=== PATIENT | female | born 1990 | race Caucasian/White ===

== ENCOUNTER 2021-07-02 20:20 | Inpatient (IN) ==
--- NOTE | 2021-07-02 21:04 | Emergency Department Note ---
Impression & Plan Pneumonia, UTI (urinary tract infection), Leukocytosis, Acute dehydration, Hyponatremia ED Provider Note NAME: YAMIL LEE AGE: 30 SEX: F : 1990 ARRIVES VIA: Law Enforcement Transport INFORMANT: Patient, ED PROVIDER(S): Roderick Pate MD Chief Complaint: Flank pain HPI: Patient does present with long enforcement as they are outstanding warrants from [place] for her arrest. The patient does complain of pain to the bilateral flank and associated body aches. The patient is vaccinated for COVID-19. She does admit to alcohol tobacco as well as IV drug use. The patient does use heroin most recently as yesterday. The patient also does admit to methamphetamine use. Patient injects in her bilateral upper arms. The patient denies any vomiting. LMP she believes was earlier this month. Patient denies any leg swelling or rashes. Patient denies any headache or neck pain. Patient was recently seen and was noted to have a likely UTI with a white count of 22,000. The patient was subsequently discharged. ROS: See HPI for pertinent positives and negatives. A total of 10 systems were reviewed and otherwise negative. Past medical history: See below Surgical history: See below Social history: See below Physical Exam: GENERAL: Mildly ill in appearance, wearing a mask EYE EXAM: Normal conjunctiva. PERRL, no anisocoria and EOM's grossly intact w/o pain. NECK: Supple, no nuchal rigidity, no adenopathy, non-tender. No signs of meningismus. LUNGS: Clear to auscultation. Normal chest wall mechanics. HEART: Tachycardic and, no MRG. ABDOMEN: Abdomen soft, non-tender, normo-active bowel sounds, no masses, no rebound or guarding. BACK: Bilateral CVA TTP. SKIN: No rashes and no bruising. UPPER EXTREMITIES: 2 recent injection sites 1 on each forearm but without any surrounding erythema fluctuance or drainage LOWER EXTREMITIES: Grossly normal, no edema. No TTP NEURO EXAM: A&O x3, cranial nerves II-XII grossly intact, normal speech, moves all 4 extremities on command w/o issue. Differential diagnoses: Sepsis, UTI, pneumonia, metabolic, electrolyte abnormalities, cardiac sources, intracerebral event, toxicologic, neurologic, as well as other pathologies. Course: Patient was seen and evaluated the bedside. Full history physical exam was performed. EKG interpreted by me Sinus tachycardia, rate 112, normal intervals right axis deviation. T wave inversion in V2. [place] may be changed from comparison EKG June 30, 2021 Imaging Studies: CT abdomen pelvis with contrast: No hydronephrosis or nephrolithiasis. Multifocal opacities of the lung bases, compatible with pneumonia. Small right and left trace pleural effusions. Circumferential wall thickening of the descending and sigmoid colon may be due to underdistention versus colitis. Excess colonic stool burden in the rectum and right colon which can be seen in the setting of constipation. Fluid-filled nondilated loops of small bowel throughout the abdomen are nonspecific but can be seen in the setting of enteritis. Transitional lumbosacral anatomy. Hepatomegaly. Splenomegaly. Cortical scarring/atrophy of the left kidney, similar from prior exam. Cardiac monitoring: An order was placed for continuous cardiac monitoring. The monitor shows a rate of 110 with cardiac and regular rhythm. MDM: Patient presented to concern for bilateral flank pain. Blood work was obtained along with blood cultures. I did review the patient's urine culture which showed staph aureus. I did speak with pharmacy and the patient was ordered daptomycin and Zosyn. Patient's white count is 30 with a normal hemoglobin. Platelet count is unremarkable. The patient's kidney function does show prerenal azotemia and hyponatremia at 128. Mild hypocalcemia at 8.4 with a normal lactate. Urinalysis does show blood whites trichomonas and yeast. COVID-negative. Chest x-ray by my read may show bibasilar haziness. Patient CT abdomen pelvis does not show any evidence of hydronephrosis or kidney stones. The patient does have multifocal opacities at the lung bases compatible with likely pneumonia. Patient does have small right and trace left pleural effusions. Circumferential wall thickening was noted. Patient may have enteritis. Patient does have liver and spleen enlargement. Given the patient's significant lab abnormalities and concern for IV drug use and associated pneumonia. I did speak with the on-call hospitalist and the patient was admitted by Dr. Hoyos. Past Med/Surg History Medical History History of drug use No chronic diseases present Surgical History No significant past surgical history Family History Other No significant family history Social History Smoking Status: Current every day smoker Tobacco Type: Cigarettes Hx Alcohol Use: Yes Hx Substance Use: Yes Preferred Language: Gabonese Feels Safe at Home: Yes Allergies Allergies Allergy/AdvReac Type Severity Reaction Status Date / Time No Known Allergies Allergy Verified 07/02/21 20:45 Home Meds Previous Rx's Medication Instructions Recorded cefdinir 300 mg capsule 300 mg PO BID 10 Days #20 cap 06/30/21 Results & Data (ED) Vital Signs Vital Signs - 24 hr 07/02/21 20:23 07/02/21 21:00 07/02/21 21:58 Temperature 36.8 C Temperature Source Temporal Artery Scan Pulse Rate 85 Pulse Rate [Apical] 112 H 98 H Pulse Rate [Right Finger] Pulse Rhythm [Right Finger] Pulse Strength [Right Finger] Respiratory Rate 18 16 18 Respiratory Effort / Characteristics Non-Labored Spontaneous Respiratory Depth Normal Blood Pressure 117/77 Blood Pressure [Left Arm] 145/79 H 145/79 H Blood Pressure Mean 90 Blood Pressure Mean [Left Arm] 101 101 Pulse Oximetry 95 98 98 Oxygen Delivery Method Room Air Sepsis Recent Fever Within 48 Hours No Sepsis New/Unexplained Change in Mental Status No Sepsis Action Taken by Nursing No Action Required 07/02/21 23:45 Temperature 37.3 C Temperature Source Oral Pulse Rate Pulse Rate [Apical] Pulse Rate [Right Finger] 114 H Pulse Rhythm [Right Finger] Regular Pulse Strength [Right Finger] Normal Respiratory Rate 20 Respiratory Effort / Characteristics Non-Labored Spontaneous Respiratory Depth Normal Blood Pressure Blood Pressure [Left Arm] 131/75 Blood Pressure Mean Blood Pressure Mean [Left Arm] 93 Pulse Oximetry 96 Oxygen Delivery Method Room Air Sepsis Recent Fever Within 48 Hours Sepsis New/Unexplained Change in Mental Status Sepsis Action Taken by [facility] Medications Current Medication List: was personally reviewed by me Laboratory Data Attestation: I reviewed the patient's lab results. Result diagrams: 07/02/21 21:36 07/02/21 21:36 Lab Results 07/02/21 07/02/21 07/02/21 Range/Units 21:00 21:00 21:36 WBC 30.55 H* (4.8-10.8) K/uL RBC 4.05 L (4.2-5.4) M/uL Hgb 12.3 (12.0-16.0) g/dL Hct 35.3 L (37-47) % MCV 87.2 (80-100) fL MCH 30.4 (25-34) pg MCHC 34.8 (32-36) g/dL RDW Std Deviation 42.9 (36.4-46.3) fL RDW Coeff of [place] 13.3 (11.5-14.5) % Plt Count 209 (130-400) K/uL MPV 9.8 (7.4-10.4) fL Immature Gran % (Auto) 1.6 % Neut % (Auto) 85.8 % Lymph % (Auto) 5.8 % [place] % (Auto) 6.4 % Eos % (Auto) 0.1 % Baso % (Auto) 0.3 % Neut # (Auto) 26.26 H (1.4-6.5) K/uL Lymph # (Auto) 1.76 (1.2-3.4) K/uL [place] # (Auto) 1.94 H (0.11-0.59) K/uL Eos # (Auto) 0.03 (0-0.5) K/uL Baso # (Auto) 0.08 (0-0.2) K/uL Immature Gran # (Auto) 0.48 H (0.00-0.02) K/uL PT (9.0-12.0) Seconds INR (0.9-1.1) APTT (21.0-31.0) Seconds PTT Ratio Sodium (136-145) mmol/L Potassium (3.5-5.1) mmol/L Chloride (98-107) mmol/L Carbon Dioxide (21-32) mmol/L Anion Gap (3-11) BUN (6-23) mg/dl Creatinine (0.6-1.2) mg/dl Est Cr Clr Drug Dosing ml/min Est GFR ( Amer) ml/min Est GFR (Non-Af Amer) ml/min BUN/Creatinine Ratio (10-20) Glucose (70-99(Fasting)) mg/dl Lactate (0.4-2.0) mmol/L Calcium (8.5-10.1) mg/dl Magnesium (1.7-2.4) mg/dl Total Bilirubin (0.2-1.0) mg/dl AST (13-39) U/L ALT (7-52) U/L Alkaline Phosphatase (34-104) U/L Total Protein (6.0-8.3) gm/dl Albumin (3.4-5.0) gm/dl Globulin (2.5-4.0) gm/dl Albumin/Globulin Ratio (0.9-2) Urine Color Yellow Urine Appearance Cloudy A (Clear) Urine pH 5.0 (4.5-7.5) Ur Specific [place] 1.014 (1.000-1.030) Urine Protein 2+ H (Negative) Urine Glucose (UA) Negative (Negative) Urine Ketones Negative (Negative) Urine Blood 3+ H (Negative) Urine Nitrite Negative (Negative) Urine Bilirubin Negative (Negative) Urine Urobilinogen Negative (Negative) Ur Leukocyte Esterase Negative (Negative) Urine WBC (Auto) 10-30 H (0-5) /hpf Urine RBC (Auto) 0-4 (0-4) /hpf U Hyaline Cast (Auto) 1-5 (0-5) /lpf U Epithel Cells (Auto) >30 H (0-5) /lpf Urine Bacteria (Auto) Negative (Negative) Urine Trichomonas Present H (None Prsent) Urine Yeast Budding A (None Prsent) Urine Test Negative (Negative) SARS-CoV-2, RNA, NAAT (NEGATIVE) 07/02/21 07/02/21 07/02/21 Range/Units 21:36 21:36 21:36 WBC (4.8-10.8) K/uL RBC (4.2-5.4) M/uL Hgb (12.0-16.0) g/dL Hct (37-47) % MCV (80-100) fL MCH (25-34) pg MCHC (32-36) g/dL RDW Std Deviation (36.4-46.3) fL RDW Coeff of [place] (11.5-14.5) % Plt Count (130-400) K/uL MPV (7.4-10.4) fL Immature Gran % (Auto) % Neut % (Auto) % Lymph % (Auto) % [place] % (Auto) % Eos % (Auto) % Baso % (Auto) % Neut # (Auto) (1.4-6.5) K/uL Lymph # (Auto) (1.2-3.4) K/uL [place] # (Auto) (0.11-0.59) K/uL Eos # (Auto) (0-0.5) K/uL Baso # (Auto) (0-0.2) K/uL Immature Gran # (Auto) (0.00-0.02) K/uL PT 11.6 (9.0-12.0) Seconds INR 1.2 H (0.9-1.1) APTT 26.2 (21.0-31.0) Seconds PTT Ratio 1.0 Sodium 128 L (136-145) mmol/L Potassium 3.8 (3.5-5.1) mmol/L Chloride 93 L (98-107) mmol/L Carbon Dioxide 26 (21-32) mmol/L Anion Gap 9 (3-11) BUN 23 (6-23) mg/dl Creatinine 0.73 (0.6-1.2) mg/dl Est Cr Clr Drug Dosing 100.5 ml/min Est GFR ( Amer) 127.2 ml/min Est GFR (Non-Af Amer) 109.7 ml/min BUN/Creatinine Ratio 31.5 H (10-20) Glucose 112 H (70-99(Fasting)) mg/dl Lactate 1.9 (0.4-2.0) mmol/L Calcium 8.4 L (8.5-10.1) mg/dl Magnesium 2.6 H (1.7-2.4) mg/dl Total Bilirubin 0.7 (0.2-1.0) mg/dl AST 26 (13-39) U/L ALT 25 (7-52) U/L Alkaline Phosphatase 156 H (34-104) U/L Total Protein 7.6 (6.0-8.3) gm/dl Albumin 3.0 L (3.4-5.0) gm/dl Globulin 4.6 H (2.5-4.0) gm/dl Albumin/Globulin Ratio 0.7 L (0.9-2) Urine Color Urine Appearance (Clear) Urine pH (4.5-7.5) Ur Specific [place] (1.000-1.030) Urine Protein (Negative) Urine Glucose (UA) (Negative) Urine Ketones (Negative) Urine Blood (Negative) Urine Nitrite (Negative) Urine Bilirubin (Negative) Urine Urobilinogen (Negative) Ur Leukocyte Esterase (Negative) Urine WBC (Auto) (0-5) /hpf Urine RBC (Auto) (0-4) /hpf U Hyaline Cast (Auto) (0-5) /lpf U Epithel Cells (Auto) (0-5) /lpf Urine Bacteria (Auto) (Negative) Urine Trichomonas (None Prsent) Urine Yeast (None Prsent) Urine Test (Negative) SARS-CoV-2, RNA, NAAT (NEGATIVE) 07/02/21 Range/Units 22:00 WBC (4.8-10.8) K/uL RBC (4.2-5.4) M/uL Hgb (12.0-16.0) g/dL Hct (37-47) % MCV (80-100) fL MCH (25-34) pg MCHC (32-36) g/dL RDW Std Deviation (36.4-46.3) fL RDW Coeff of [place] (11.5-14.5) % Plt Count (130-400) K/uL MPV (7.4-10.4) fL Immature Gran % (Auto) % Neut % (Auto) % Lymph % (Auto) % [place] % (Auto) % Eos % (Auto) % Baso % (Auto) % Neut # (Auto) (1.4-6.5) K/uL Lymph # (Auto) (1.2-3.4) K/uL [place] # (Auto) (0.11-0.59) K/uL Eos # (Auto) (0-0.5) K/uL Baso # (Auto) (0-0.2) K/uL Immature Gran # (Auto) (0.00-0.02) K/uL PT (9.0-12.0) Seconds INR (0.9-1.1) APTT (21.0-31.0) Seconds PTT Ratio Sodium (136-145) mmol/L Potassium (3.5-5.1) mmol/L Chloride (98-107) mmol/L Carbon Dioxide (21-32) mmol/L Anion Gap (3-11) BUN (6-23) mg/dl Creatinine (0.6-1.2) mg/dl Est Cr Clr Drug Dosing ml/min Est GFR ( Amer) ml/min Est GFR (Non-Af Amer) ml/min BUN/Creatinine Ratio (10-20) Glucose (70-99(Fasting)) mg/dl Lactate (0.4-2.0) mmol/L Calcium (8.5-10.1) mg/dl Magnesium (1.7-2.4) mg/dl Total Bilirubin (0.2-1.0) mg/dl AST (13-39) U/L ALT (7-52) U/L Alkaline Phosphatase (34-104) U/L Total Protein (6.0-8.3) gm/dl Albumin (3.4-5.0) gm/dl Globulin (2.5-4.0) gm/dl Albumin/Globulin Ratio (0.9-2) Urine Color Urine Appearance (Clear) Urine pH (4.5-7.5) Ur Specific [place] (1.000-1.030) Urine Protein (Negative) Urine Glucose (UA) (Negative) Urine Ketones (Negative) Urine Blood (Negative) Urine Nitrite (Negative) Urine Bilirubin (Negative) Urine Urobilinogen (Negative) Ur Leukocyte Esterase (Negative) Urine WBC (Auto) (0-5) /hpf Urine RBC (Auto) (0-4) /hpf U Hyaline Cast (Auto) (0-5) /lpf U Epithel Cells (Auto) (0-5) /lpf Urine Bacteria (Auto) (Negative) Urine Trichomonas (None Prsent) Urine Yeast (None Prsent) Urine Test (Negative) SARS-CoV-2, RNA, NAAT NEGATIVE (NEGATIVE) Administered Medications Discontinued Medications Sodium Chloride (Nss 1000ml) 1,000 mls @ 999 mls/hr IV .Q1H1M [facility] Stop: 07/02/21 22:16 Last Admin: 07/02/21 22:47 Dose: 999 mls/hr Documented by: [id number] Sodium Chloride (Nss 1000ml) 1,000 mls @ 999 mls/hr IV .Q1H1M [facility] Stop: 07/02/21 23:15 Last Admin: 07/02/21 22:48 Dose: 999 mls/hr Documented by: [id number] Daptomycin 350 mg/ Syringe 7 mls @ 3.5 mls/min IV NOW ONE; Protocol Stop: 07/02/21 21:33 Last Admin: 07/02/21 22:47 Dose: 3.5 mls/min Documented by: [id number] Piperacillin Sod/Tazobactam Sod (Zosyn) 4.5 gm in 120 mls @ 240 mls/hr IV NOW ONE Stop: 07/02/21 22:01 Last Admin: 07/02/21 22:47 Dose: 240 mls/hr Documented by: [id number] Ioversol (Optiray 320 100ml) 93 ml IV ONCE ONE Stop: 07/02/21 22:33 Last Admin: 07/02/21 22:34 Dose: 93 ml Documented by: [id number] Discharge Plan Visit Data Chief Complaint: Urinary Symptoms Stated Complaint: POSSIBLE UTI, ACHES, FEET ACHE, RIB ACHE Discharge Problem: Pneumonia, UTI (urinary tract infection), Leukocytosis, Acute dehydration, Hyponatremia Patient Disposition: Admitted As Inpatient Forms Stand Alone Forms: [facility] Prescriptions Prescriptions: No Action cefdinir 300 mg capsule 300 mg PO BID 10 Days Qty: 20 RF: 0 Referrals Referrals: PCP,NO [Primary Care Provider] -
[2021-07-02] MEDS ORDERED: PIPERACILLIN/TAZOBACTAM 4.5 GM/120 ML BAG IV ONE (21:32)
[2021-07-02] MEDS ORDERED: DAPTOmycin 350 MG in SYRINGE 0 ML IV ONE (21:32)
[2021-07-02] MEDS ORDERED: PIPERACILL/TAZOBAC CONSULT ACTIVE PRN (21:32)
[2021-07-02 21:41] LABS: Pregnancy Test, Urine Negative (Negative)
[2021-07-02 21:47] LABS: Hematocrit (blood only) 35.3 % (37-47); Hemoglobin 12.3 g/dL (12.0-16.0); Mean Corpuscular Hemoglobin 30.4 pg (25-34); Mean Corpuscular Hgb Conc 34.8 g/dL (32-36); Mean Corpuscular Volume 87.2 fL (80-100); Mean Platelet Volume 9.8 fL (7.4-10.4); Platelet Count 209 K/uL (130-400); RDW Coefficient of Variation 13.3 % (11.5-14.5); RDW Standard Deviation 42.9 fL (36.4-46.3); Red Blood Count 4.05 M/uL (4.2-5.4); White Blood Count 30.55 K/uL (4.8-10.8)
[2021-07-02 21:58] LABS: INR 1.2 (0.9-1.1); Partial Thromboplastin Time 26.2 Seconds (21.0-31.0); Prothrombin Time 11.6 Seconds (9.0-12.0)
[2021-07-02 22:03] LABS: Albumin Globulin Ratio 0.7 (0.9-2); BUN Creatinine Ratio 31.5 (10-20); Bilirubin,Total 0.7 mg/dl (0.2-1.0); Calcium 8.4 mg/dl (8.5-10.1); Creatinine Clr Calc Pharmacy 100.5 ml/min; Est GFR (African American) 127.2 ml/min; Est GFR (Non-African American) 109.7 ml/min; Globulin 4.6 gm/dl (2.5-4.0); Magnesium 2.6 mg/dl (1.7-2.4); Potassium 3.8 mmol/L (3.5-5.1); Total Protein 7.6 gm/dl (6.0-8.3)
[2021-07-02] MEDS ORDERED: SODIUM CHLORIDE 0.9% 1000ML 1,000 ML IV SCH (22:15)
[2021-07-02 22:16] LABS: Appearance Urine Cloudy (Clear); Bacteria Urine Automated Negative (Negative); Bilirubin Urine Negative (Negative); Blood Urine 3+ (Negative); Color Urine Yellow; Epithelial Cell Urine Auto >30 /lpf (0-5); Glucose Urine UA Negative (Negative); Ketones Urine Negative (Negative); Leukocyte Esterase Urine Negative (Negative); Nitrite Urine Negative (Negative); Protein Urine 2+ (Negative); RBC Urine Automated 0-4 /hpf (0-4); Specific Gravity Urine 1.014 (1.000-1.030); Urobilinogen Urine Negative (Negative)
[2021-07-02 22:21] LABS: Basophils # (auto) 0.08 K/uL (0-0.2); Basophils % (auto) 0.3 %; Eosinophils # (auto) 0.03 K/uL (0-0.5); Eosinophils % (auto) 0.1 %; Immature Granulocytes # (auto) 0.48 K/uL (0.00-0.02); Immature Granulocytes % (auto) 1.6 %; Lymphocytes # (auto) 1.76 K/uL (1.2-3.4); Lymphocytes % (auto) 5.8 %; Monocytes # (auto) 1.94 K/uL (0.11-0.59); Monocytes % (auto) 6.4 %; Neutrophils # (auto) 26.26 K/uL (1.4-6.5); Neutrophils % (auto) 85.8 %
[2021-07-02 22:29] LABS: Trichomonas Urine Present (None Prsent)
[2021-07-02] MEDS ORDERED: OPTIRAY 320 100ml IV ONE (22:32)
[2021-07-02] MEDS: SODIUM CHLORIDE 0.9% 1000ML 1,000 ML IV SCH (22:47)
[2021-07-03] MEDS ORDERED: THIAMINE HCL 100 MG in SYRINGE 9 ML IV STA (00:17)
[2021-07-03] MEDS ORDERED: VANCOMYCIN CONSULT ACTIVE PRN (00:18)
--- NOTE | 2021-07-03 00:19 | History & Physical Report ---
Date of Service July 03, 2021 Assessment & Plan (1) Sepsis: Plan: Secondary to pneumonia Rule out infective endocarditis given history of IV drug abuse Shortness of breath with chest pain secondary to pneumonia rule out PE given pleuritic chest pain complaints Syncopal event last week possibly from orthostasis given low BP from last ER visit Rule out obstructive cardiac pathology chronic hyponatremia secondary to EtOH intake Hepatosplenomegaly on CT abdomen pelvis initial read, possible alcoholic cirrhosis ongoing tobacco/alcohol abuse Hyperglycemia rule out DM Medical telemetry CS, Vancomycin and Zosyn given IVDU/alcohol history CT chest PE study TTE RE syncope Hyponatremia work-up Further management pending work-up results RICA S, DT precautions Check hemoglobin A1c Nicotine patch as needed DVT prophylaxis. Lovenox subcu Full code Local police have to be notified if patient to be discharge as patient needs to return to half-way. Text document was generated using [employer] voice recognition software. It may contain grammatical or spelling errors. Kindly contact undersigned for clarification of any documentation item in question. History of Present Illness Chief Complaint: Weak and achy Primary Care Provider: Dr. Duenas History obtained from patient and records. Medical history significant for chronic hyponatremia, IV drug abuse, ongoing tobacco/alcohol use. Patient has been sick the last week. Body aches, pleuritic chest pain with cough productive of junky sputum and shortness of breath. Achy abdominal pain with constipation symptoms. Dysuria complaints. No headache. Poor appetite. No known recent COVID-19 contacts. Patient completed COVID-19 vaccination. Syncopal event about 5 days ago without witnessed seizures. Patient seen at the ER 3 days ago. Cefdinir prescribed for UTI. Urine CS later grew MRSA. Hospital pharmacist tried to contact patient and family to assess clinical status and to recommend switching antibiotic to Bactrim as per documentation. Worsening symptoms despite cefdinir Rx intake. Patient apprehended by police for trespassing at a private property last night. Patient brought to ER for evaluation because she looked sick. Daptomycin and Zosyn given at the ER for sepsis. Medical History as above Surgical History : Tonsillectomy, appendectomy Family History : Heart disease, DM Personal/Social history : 1 pack daily, alcohol abuse, currently unemployed Allergies Allergy/AdvReac Type Severity Reaction Status Date / Time No Known Allergies Allergy Verified 07/02/21 20:45 Home Medications Medication Instructions Recorded Confirmed Type cefdinir 300 mg capsule 300 mg PO BID 10 Days #20 cap 06/30/21 07/02/21 Rx Past Med/Surg History Medical History History of drug use No chronic diseases present Surgical History No significant past surgical history Family History Other No significant family history Social History Smoking Status: Current every day smoker Tobacco Type: Cigarettes Hx Alcohol Use: Yes Hx Substance Use: Yes Preferred Language: Chinese Feels Safe at Home: Yes Review of Systems Review of Systems: As per HPI, all 10 systems reviewed, all other ROS negative Physical Exam Physical Exam: GENERAL: Ill-appearing, slightly anxious, no respiratory distress SKIN: Normal color, warm HEENT: [place] palpebral conjunctivae, no ptosis, dry buccal mucosa NECK : Supple, no tenderness CHEST : CTA, no tenderness HEART : Tachycardic, no obvious murmurs ABDOMEN: Some distention, central abdominal tenderness EXTREMITIES : No LE swelling/tenderness, no other conspicuous deformities noted NEUROLOGIC : Coherent, no facial asymmetry, no other gross focality Results & Data Results & Data ([facility]) Vital Signs (Past 12 Hours) Vital Signs Temp Pulse Pulse Pulse Resp BP BP 07/02/21 23:45 37.3 C 114 H 20 131/75 07/02/21 21:58 98 H 18 145/79 H 07/02/21 21:00 112 H 16 145/79 H 07/02/21 20:23 36.8 C 85 18 117/77 Pulse Ox 07/02/21 23:45 96 07/02/21 21:58 98 07/02/21 21:00 98 07/02/21 20:23 95 Laboratory Results Laboratory Results WBC 30.55 K/uL (4.8-10.8) H* 07/02/21 21:36 RBC 4.05 M/uL (4.2-5.4) L 07/02/21 21:36 Hgb 12.3 g/dL (12.0-16.0) 07/02/21 21:36 Hct 35.3 % (37-47) L 07/02/21 21:36 MCV 87.2 fL (80-100) 07/02/21 21:36 MCH 30.4 pg (25-34) 07/02/21 21:36 MCHC 34.8 g/dL (32-36) 07/02/21 21:36 RDW Std Deviation 42.9 fL (36.4-46.3) 07/02/21 21:36 RDW Coeff of [place] 13.3 % (11.5-14.5) 07/02/21 21:36 Plt Count 209 K/uL (130-400) 07/02/21 21:36 MPV 9.8 fL (7.4-10.4) 07/02/21 21:36 Immature Gran % (Auto) 1.6 % 07/02/21 21:36 Neut % (Auto) 85.8 % 07/02/21 21:36 Lymph % (Auto) 5.8 % 07/02/21 21:36 [place] % (Auto) 6.4 % 07/02/21 21:36 Eos % (Auto) 0.1 % 07/02/21 21:36 Baso % (Auto) 0.3 % 07/02/21 21:36 Neut # (Auto) 26.26 K/uL (1.4-6.5) H 07/02/21 21:36 Lymph # (Auto) 1.76 K/uL (1.2-3.4) 07/02/21 21:36 [place] # (Auto) 1.94 K/uL (0.11-0.59) H 07/02/21 21:36 Eos # (Auto) 0.03 K/uL (0-0.5) 07/02/21 21:36 Baso # (Auto) 0.08 K/uL (0-0.2) 07/02/21 21:36 Immature Gran # (Auto) 0.48 K/uL (0.00-0.02) H 07/02/21 21:36 PT 11.6 Seconds (9.0-12.0) 07/02/21 21:36 INR 1.2 (0.9-1.1) H 07/02/21 21:36 APTT 26.2 Seconds (21.0-31.0) 07/02/21 21:36 PTT Ratio 1.0 07/02/21 21:36 Sodium 128 mmol/L (136-145) L 07/02/21 21:36 Potassium 3.8 mmol/L (3.5-5.1) 07/02/21 21:36 Chloride 93 mmol/L (98-107) L 07/02/21 21:36 Carbon Dioxide 26 mmol/L (21-32) 07/02/21 21:36 Anion Gap 9 (3-11) 07/02/21 21:36 BUN 23 mg/dl (6-23) 07/02/21 21:36 Creatinine 0.73 mg/dl (0.6-1.2) 07/02/21 21:36 Est Cr Clr Drug Dosing 100.5 ml/min 07/02/21 21:36 Est GFR ( Amer) 127.2 ml/min 07/02/21 21:36 Est GFR (Non-Af Amer) 109.7 ml/min 07/02/21 21:36 BUN/Creatinine Ratio 31.5 (10-20) H 07/02/21 21:36 Glucose 112 mg/dl (70-99(Fasting)) H 07/02/21 21:36 Osmolality 302 mOsm/kg (280-300) H 07/02/21 21:36 Lactate 1.9 mmol/L (0.4-2.0) 07/02/21 21:36 Calcium 8.4 mg/dl (8.5-10.1) L 07/02/21 21:36 Magnesium 2.6 mg/dl (1.7-2.4) H 07/02/21 21:36 Total Bilirubin 0.7 mg/dl (0.2-1.0) 07/02/21 21:36 AST 26 U/L (13-39) 07/02/21 21:36 ALT 25 U/L (7-52) 07/02/21 21:36 Alkaline Phosphatase 156 U/L (34-104) H 07/02/21 21:36 Total Protein 7.6 gm/dl (6.0-8.3) 07/02/21 21:36 Albumin 3.0 gm/dl (3.4-5.0) L 07/02/21 21:36 Globulin 4.6 gm/dl (2.5-4.0) H 07/02/21 21:36 Albumin/Globulin Ratio 0.7 (0.9-2) L 07/02/21 21:36 Urine Color Yellow 07/02/21 21:00 Urine Appearance Cloudy (Clear) A 07/02/21 21:00 Urine pH 5.0 (4.5-7.5) 07/02/21 21:00 Ur Specific [place] 1.014 (1.000-1.030) 07/02/21 21:00 Urine Protein 2+ (Negative) H 07/02/21 21:00 Urine Glucose (UA) Negative (Negative) 07/02/21 21:00 Urine Ketones Negative (Negative) 07/02/21 21:00 Urine Blood 3+ (Negative) H 07/02/21 21:00 Urine Nitrite Negative (Negative) 07/02/21 21:00 Urine Bilirubin Negative (Negative) 07/02/21 21:00 Urine Urobilinogen Negative (Negative) 07/02/21 21:00 Ur Leukocyte Esterase Negative (Negative) 07/02/21 21:00 Urine WBC (Auto) 10-30 /hpf (0-5) H 07/02/21 21:00 Urine RBC (Auto) 0-4 /hpf (0-4) 07/02/21 21:00 U Hyaline Cast (Auto) 1-5 /lpf (0-5) 07/02/21 21:00 U Epithel Cells (Auto) >30 /lpf (0-5) H 07/02/21 21:00 Urine Bacteria (Auto) Negative (Negative) 07/02/21 21:00 Urine Trichomonas Present (None Prsent) H 07/02/21 21:00 Urine Yeast Budding (None Prsent) A 07/02/21 21:00 Urine Test Negative (Negative) 07/02/21 21:00 SARS-CoV-2, RNA, NAAT NEGATIVE (NEGATIVE) 07/02/21 22:[address] abdomen pelvis initial read: Chest x-ray as per my interpretation bilateral infiltrates EKG as per my interpretation : Rate 110, sinus tachycardia, RAD, no ischemia
[2021-07-03] MEDS ORDERED: MULTI-VITAMIN INFUSION 10 ML, THIAMINE HCL 100 MG, FOLIC ACID 1 MG in SODIUM CHLORIDE 0... IV ONE (00:27)
[2021-07-03] MEDS: SODIUM CHLORIDE 0.9% 1000ML 1,000 ML IV SCH (01:14)
[2021-07-03 02:02] LABS: Influenza A virus by PCR Negative (Negative); Influenza B virus by PCR Negative (Negative)
[2021-07-03] MEDS ORDERED: POLYETHYLENE (MIRALAX) 17 GM PACK PO PRN (02:15)
[2021-07-03] MEDS ORDERED: POLYETHYLENE (MIRALAX) 17 GM PACK PO STA (02:15)
[2021-07-03] MEDS ORDERED: VANCOMYCIN HCL 1,500 MG in SODIUM CHLORIDE 0.9% 500 ML IV STA (02:27)
--- NOTE | 2021-07-03 02:52 | Pharmacy Report ---
Pharmacy Vanc AUC Short Note - Date of Service July 03, 2021 - Assessment & Plan Assessment 30 year old F receiving Vancomycin for treatment of pneumonia and UTI. * PMHx significant for alcohol, tobacco and intravenous drug abuse. * Seen in ED on 06/30/21 and diagnosed with UTI and discharged on Cefdinir. Culture grew MRSA. * Afebrile. Leukocytosis of 31k. Renal fxn stable. * Blood and urine cultures pending. Plan Vancomycin * AUC/CARLOS is the preferred PK/PD target for vancomycin * AUC guided dosing is effective and associated with decreased risk of nephrotoxicity compared to traditional trough targets * Loading dose of 1500 mg IV x 1 * Maintenance dose of 750 mg IV every 8 hours is expected to achieve goal AUC/CARLOS of 400-600 mg/L.hr and is associated with a 15% risk of nephrotoxicity. * Trough level ordered for 07/04/21. Pharmacy will continue to follow and will adjust dose/frequency as necessary. Thank you.
[2021-07-03] MEDS ORDERED: LORazepam 1 MG/2 ML VIAL IV PRN (03:04)
[2021-07-03] MEDS ORDERED: LORazepam 2 MG/4 ML VIAL IV PRN (03:04)
[2021-07-03] MEDS ORDERED: IBUPROFEN 200 MG TAB PO PRN (03:04)
[2021-07-03] MEDS ORDERED: ACETAMINOPHEN 325 MG TAB PO PRN (03:04)
[2021-07-03] MEDS ORDERED: LORazepam 3 MG/6 ML VIAL IV PRN (03:04)
[2021-07-03] MEDS ORDERED: ATIVAN IV ALCOHOL WITHDRAWL IV PRN (03:04)
[2021-07-03] MEDS ORDERED: KETOROLAC TROMETHAMINE 15 MG/ML VIAL IV PRN (03:04)
[2021-07-03] MEDS ORDERED: PROMETHAZINE HCL 12.5 MG in SODIUM CHLORIDE 0.9% 50 ML IV PRN (03:04)
[2021-07-03] MEDS ORDERED: NICOTINE 21 MG/24 HR TDSY TD SCH (03:30)
[2021-07-03] MEDS: DOCUSATE SODIUM/SENNA 50/8.6MG TAB PO SCH ×2 (03:38→08:16)
[2021-07-03] MEDS: PIPERACILLIN/TAZOBACTAM 3.375 GM in DEXTROSE 5% 100 ML IV SCH ×2 (03:45→12:56)
[2021-07-03] MEDS ORDERED: PIPERACILL/TAZOBAC CONSULT ACTIVE PRN (03:51)
[2021-07-03] MEDS ORDERED: LORATADINE 10 MG TAB PO ONE (04:43)
[2021-07-03] MEDS ORDERED: LINEZOLID CONSULT ACTIVE PRN (04:55)
[2021-07-03] MEDS ORDERED: LINEZOLID 600 MG/300 ML BAG IV SCH (05:00)
[2021-07-03] MEDS ORDERED: LINEZOLID 600 MG/300 ML D5W IV SCH (05:00)
[2021-07-03 05:51] LABS: Hematocrit (blood only) 30.5 % (37-47); Hemoglobin 10.5 g/dL (12.0-16.0); Mean Corpuscular Hemoglobin 29.7 pg (25-34); Mean Corpuscular Hgb Conc 34.4 g/dL (32-36); Mean Corpuscular Volume 86.4 fL (80-100); Mean Platelet Volume 9.7 fL (7.4-10.4); Platelet Count 202 K/uL (130-400); RDW Coefficient of Variation 13.3 % (11.5-14.5); RDW Standard Deviation 42.3 fL (36.4-46.3); Red Blood Count 3.53 M/uL (4.2-5.4)
[2021-07-03 06:12] LABS: Calcium 7.6 mg/dl (8.5-10.1); Creatinine Clr Calc Pharmacy 118.3 ml/min; Est GFR (African American) 139.3 ml/min; Est GFR (Non-African American) 120.2 ml/min; Potassium 3.8 mmol/L (3.5-5.1)
[2021-07-03 06:49] LABS: Basophils # (auto) 0.03 K/uL (0-0.2); Basophils % (auto) 0.1 %; Eosinophils # (auto) 0.08 K/uL (0-0.5); Eosinophils % (auto) 0.3 %; Immature Granulocytes # (auto) 0.41 K/uL (0.00-0.02); Immature Granulocytes % (auto) 1.5 %; Lymphocytes # (auto) 1.73 K/uL (1.2-3.4); Lymphocytes % (auto) 6.5 %; Monocytes # (auto) 2.45 K/uL (0.11-0.59); Monocytes % (auto) 9.1 %; Neutrophils % (auto) 82.5 %; Toxic Granulation 1+
--- NOTE | 2021-07-03 07:31 | XRay Report ---
XR chest 1V portable CLINICAL HISTORY: Sepsis. COMPARISON STUDY: Chest radiograph June 30, 2021. FINDINGS: Lung volumes are normal. There is no pneumothorax. Possible trace right pleural fusion. Not e is made of an acute displaced fracture of the posterolateral left ninth rib. Fracture displacement has increased since prior radiographs. Multifocal bilateral airspace opacities have progressed. Cardi ac size is normal. IMPRESSION: 1. Progression of multifocal bilateral airspace opacities which favor pneumonia. 2. Acute displaced left ninth rib fracture. No pneumothorax. 3. Possible trace right pleural effusion. ACT 112: Negative or not required by law. Electronically signed by: Wyatt Wright M.D. 07/03/2021 7:30 AM
[2021-07-03 07:32] LABS: Estimated Average Glucose 128 mg/dl; Hemoglobin A1C 6.1 % (4.5-5.6)
--- NOTE | 2021-07-03 07:48 | CT Scan Report ---
CT SCAN OF THE ABDOMEN AND PELVIS WITH IV CONTRAST CLINICAL HISTORY: Bilateral flank pain. COMPARISON STUDY: Abdominal CT dated 04/29/2019. TECHNIQUE: Following the IV administration of 93 cc of Optiray 320, CT scan of the abdomen and pelvi s is performed from the lung bases to the proximal femora. Images are reviewed in the axial, sagittal , and coronal planes. IV contrast was administered without complication. A dose lowering technique wa s utilized adhering to the principles of ALARA. CT DOSE: 286.44 mGy.cm FINDINGS: Lung bases: The heart is normal in size and without pericardial effusion. Multifocal airspace consoli dation is seen at the lung bases. Foci of cavitation are seen within consolidation at the left lung b ase on image #47. A small pleural effusion is seen on the right. Liver: The contrast-enhanced liver is enlarged, measuring 21.4 cm in length. The liver is otherwise n ormal in contour and attenuation. There is no intrahepatic biliary ductal dilatation. The hepatic vei ns and portal veins are patent. Gallbladder: Unremarkable. Spleen: The spleen is enlarged measuring 14 cm in length. Pancreas: Unremarkable. Adrenal glands: Unremarkable. Kidneys: There is significant parenchymal scarring and asymmetric cortical atrophy of the left kidney . There is compensatory hypertrophy of the right kidney. No hydronephrosis is seen. Enhancement of th e left kidney is diminished as compared to the right. Abdominal vasculature: The abdominal aorta is normal in course and caliber. Bowel: There is no bowel obstruction. Foci fecal retention are seen throughout the colon. There is un derdistention of the descending colon and sigmoid. The appendix is not clearly visualized. Peritoneum: There is no intraperitoneal free air or abdominal ascites. Lymphadenopathy: None. Pelvic viscera: The bladder, uterus, and adnexa are normal as visualized. There is trace free fluid i n the cul-de-sac. Skeletal structures: No lytic or blastic lesions are seen. IMPRESSION: 1. Multifocal airspace consolidation is seen at both lung bases, with foci of cavitation on the left. The appearance is typical for pneumonia. Clinical correlation will be required and radiographic foll ow-up to resolution is recommended. 2. Small right pleural effusion. 3. There is asymmetric parenchymal scarring and cortical atrophy of the left kidney with compensatory hypertrophy of the right kidney. This is unchanged from previous. 4. Nonvisualization of the appendix. 5. Trace nonspecific free fluid in the pelvis is likely within physiologic limits. 6. Hepatosplenomegaly. 7. Additional findings as above. ACT 112: Negative or not required by law. Electronically signed by: Jason Noe M.D. 07/03/2021 7:47 AM
[2021-07-03] MEDS ORDERED: OPTIRAY 320 125ml IV ONE (08:31)
[2021-07-03] MEDS ORDERED: MULTIVITAMIN TAB PO SCH (09:00)
[2021-07-03] MEDS ORDERED: ENOXAPARIN INJ 40 MG/0.4 ML SYR SQ SCH (09:00)
--- NOTE | 2021-07-03 09:15 | CT Scan Report ---
CT ANGIOGRAM OF THE CHEST CLINICAL HISTORY: Dyspnea. Atypical chest pain. COMPARISON STUDY: Chest x-ray dated 07/02/2021. TECHNIQUE: Following the IV administration of 120 cc of Optiray 320, CT angiogram of the chest was pe rformed from the upper abdomen to the thoracic inlet utilizing the pulmonary embolus protocol. Images are reviewed in the axial, sagittal, and coronal planes. 3-D MIPS images are created and assessed. I V contrast was administered without complication. A dose lowering technique was utilized adhering to the principles of ALARA. The examination is degraded by motion artifact. CT DOSE: 263.54 mGy.cm FINDINGS: Thyroid: Imaged portions of the thyroid gland are normal in size and attenuation. Thoracic aorta: The thoracic aorta is normal in caliber and demonstrates standard 3-vessel arch anato my. No dissection is seen. Pulmonary vasculature: The pulmonary trunk is normal in caliber. There are no filling defects identif ied in main or lobar pulmonary branches. There are small segmental/subsegmental pulmonary emboli with in branches of the right upper lobe, the right lower lobe, and the lingular pulmonary arteries. The s egmental and subsegmental branches are suboptimally assessed due to significant motion artifact. Heart: The heart is normal in size and without pericardial effusion. Lungs and pleural spaces: There is multifocal patchy/nodular airspace consolidation seen throughout b oth lungs, several foci of which demonstrate central cavitation. The trachea and central airways are clear. No pneumothorax is seen. There are small right and trace left pleural effusions. Mediastinum: There is no mediastinal lymphadenopathy. Barbara: Enlarged hilar lymph nodes measure up to 15 mm in short axis. Axillae: There is no axillary lymphadenopathy. Upper abdomen: Partially visualized upper abdominal viscera is within normal limits. Skeletal structures: No lytic or blastic bony lesions are seen. There is an acute left lateral ninth rib fracture. IMPRESSION: 1. There are small segmental/subsegmental pulmonary emboli seen bilaterally. 2. There is an acute left lateral 9th rib fracture. 3. Multifocal patchy/nodular airspace consolidation is seen throughout both lungs with scattered foci of cavitation. The appearance is typical for multifocal pneumonia, and/or possibly septic emboli. Cl inical correlation will be essential. 4. Small right and trace left pleural effusions. 5. No pneumothorax is seen. 6. Bilateral hilar adenopathy is likely reactive. ACT 112: Negative or not required by law. Electronically signed by: Jason Noe M.D. 07/03/2021 9:14 AM
--- NOTE | 2021-07-03 11:52 | Electrocardiogram Report ---
Test Reason : Blood Pressure : / mmHG Vent. Rate : 111 BPM Atrial Rate : 113 BPM P-R Int : 152 ms QRS Dur : 080 ms QT Int : 314 ms P-R-T Axes : 000 093 103 degrees QTc Int : 427 ms Sinus tachycardia Rightward axis Nonspecific ST and T wave abnormality Abnormal ECG When compared with ECG of 30-JUN-2021 01:49, Nonspecific ST and T wave abnormality is now Present Confirmed by Kyle Ortiz ([id number]) on 07/03/2021 11:51:32 AM Referred By: REFERRED SELF Confirmed By:Kyle Ortiz
[2021-07-03] MEDS ORDERED: VANCOMYCIN HCL 750 MG in SODIUM CHLORIDE 0.9% 250 ML IV SCH (12:00)
--- NOTE | 2021-07-03 13:31 | Cardiology Consultation ---
Date of Consultation July 03, 2021 Assessment & Plan (1) Infective endocarditis of tricuspid valve: (2) Septic pulmonary embolism: (3) Drug abuse: 30-year-old female with evidence of large tricuspid valve vegetation per transthoracic echocardiogram. CT demonstrating probable septic emboli. Continue intravenous antibiotic therapy per the direction of infectious disease with daptomycin and vancomycin. Initial blood cultures growing gram-positive cocci in clusters suggestive of staph species. Recommend transfer to tertiary care center for cardiothoracic surgical evaluation secondary to endocarditis with septic emboli. If patient is not transferred tomorrow, a transesophageal echocardiogram can be performed in a.m., otherwise, further imaging can be performed at tertiary care center. History of Present Illness Reason for Consultation: Endocarditis Requesting Physician: Dr. Bird Attending Physician: Nhi Bird MD History of Present Illness 30-year-old female presents to the emergency department with bilateral flank pain and diffuse body aches. Admits to IV drug abuse within the past 72 hours. Also admits to methamphetamine and alcohol use. Generally injects in her bilateral upper arms. Blood cultures drawn yesterday reporting gram-positive cocci in clusters. Preliminary review of bedside 2D transthoracic echocardiogram demonstrating large tricuspid valve vegetation. Patient currently resting comfortably. She appears ill and somewhat anxious. Denies chest pain or shortness of breath. No focal weakness, visual changes, slurred speech, dysphagia, or paresthesias. Reports diffuse body aches. Denies fever or chills. No orthopnea, PND, or lower extremity edema. Allergies Allergy/AdvReac Type Severity Reaction Status Date / Time vancomycin Allergy Mild Hives Verified 07/03/21 04:45 Home Medications Medication Instructions Recorded Confirmed Type cefdinir 300 mg capsule 300 mg PO BID 10 Days #20 cap 06/30/21 07/02/21 Rx Patient History Medical History History of drug use No chronic diseases present Surgical History No significant past surgical history Family History Other No significant family history Social History Smoking Status: Current every day smoker Tobacco Type: Cigarettes Tobacco Cessation Education Requested by Patient: No Hx Alcohol Use: Yes Hx Substance Use: Yes Last Used Substance: Hours (ago) Preferred Language: Greek Communication Ability: Effective [employer] Required: No Beliefs That Will Affect Care: None Current Living Situation: Significant Other and Homeless Other Information That Helps Us Care for You: No Feels Safe at Home: Yes Safety Concerns: Feels Safe At This Time Review of Systems Review of Systems: All systems reviewed & are unremarkable except as noted in Subjective Physical Exam Constitutional: well developed and + ill appearing Respiratory: normal respiratory effort; no respiratory distress, no labored breathing and no retractions Auscultation: + crackles (right base); no rhonchi and no wheezes Cardiovascular: Rate/Rhythm: regular rate and regular rhythm Heart Sounds: normal S1, normal S2 and + murmur (soft 1/6 systolic murmur heard at LSB) Vessels: no JVD and no carotid bruit Extremities: no edema Gastrointestinal (Abdomen): Inspection/Auscultation: abdomen normal to inspection and normal bowel sounds; abdomen not distended Percussion/Palpation: abdomen nontender, no guarding, abdomen not rigid and + abdomen not soft Neurologic: CN's II-XI intact bilaterally and moves all extremities; no focal motor deficits Results & Data ([facility]) Vital Signs (Past 12 Hours) Vital Signs Temp Pulse Pulse Pulse Resp BP BP 07/03/21 12:00 76 19 122/80 07/03/21 11:00 75 31 H 138/88 07/03/21 10:12 37.3 C 78 24 120/80 07/03/21 10:00 73 24 120/80 07/03/21 09:30 78 34 H 07/03/21 09:00 74 28 H 131/84 07/03/21 08:00 36.7 C 81 19 113/78 07/03/21 07:30 79 20 07/03/21 07:00 81 18 07/03/21 06:30 82 23 07/03/21 06:07 07/03/21 06:00 92 H 82 24 125/81 125/81 07/03/21 05:30 83 28 H 07/03/21 05:00 98 H 31 H 132/74 07/03/21 04:30 101 H 31 H 07/03/21 04:16 96 H 96 H 38 H 131/80 131/80 07/03/21 04:00 99 H 44 H 118/76 07/03/21 03:52 37.3 C 99 H 99 H 32 H 117/68 117/68 07/03/21 03:30 95 H 38 H 07/03/21 03:00 37.4 C 105 H 103 H 25 H 134/81 134/81 07/03/21 02:30 100 H 39 H 07/03/21 02:00 93 H 28 H 129/74 07/03/21 01:30 113 H 42 H Pulse Ox Pulse Ox 07/03/21 12:00 94 07/03/21 11:00 95 07/03/21 10:12 93 07/03/21 10:00 97 07/03/21 09:30 92 07/03/21 09:00 97 07/03/21 08:00 96 07/03/21 07:30 96 07/03/21 07:00 95 07/03/21 06:30 96 07/03/21 06:07 98 07/03/21 06:00 97 07/03/21 05:30 95 07/03/21 05:00 97 07/03/21 04:30 97 07/03/21 04:16 99 07/03/21 04:00 97 07/03/21 03:52 98 07/03/21 03:30 94 07/03/21 03:00 93 07/03/21 02:30 96 07/03/21 02:00 95 07/03/21 01:30 97
--- NOTE | 2021-07-03 13:42 | Hospitalist Progress Note ---
Date of Service July 03, 2021 Assessment & Plan (1) Sepsis: Plan: MRSA sepsis Infective endocarditis with Tricuspid valvular vegetation Septic pulmonary emboli Patient presented with shortness of breath with chest pain CXR showed multifocal bilateral airspace opacity and acute displaced left ninth rib fracture. No pneumothorax. Lab work notable for leukocytosis [30,000 on admission], sodium of 128 on admission [134 this morning], alkaline phosphatase 156, hemoglobin A1c of 6.1 lactate was 1.9. Urinalysis had negative nitrite and esterase, 10-30 WBC, epithelial cells. CT abdomen pelvis noted asymmetric parenchymal scarring and cortical atrophy of the left kidney with compensatory hypertrophy of the right kidney unchanged from prior, hepatosplenomegaly. Chest CT angiogram showed small segmental and subsegmental pulmonary emboli bilaterally with acute left lateral ninth rib fracture, multifocal patchy airspace consolidation throughout both lungs with scattered foci of cavitation, small right and trace left pleural effusion. Transthoracic echocardiogram showed a large tricuspid valvular vegetation measuring 1.8 x 2 cm with mild tricuspid regurgitation EF of 60 to 65%, no pericardial effusion. Blood cultures growing GPC in clusters in both bottles positive for MRSA Patient was started on vancomycin overnight on admission but had allergic reaction to hives per RN. Hyponatremia likely to due alcohol use Continue daptomycin and zosyn Repeat blood cultures Infectious disease consult. Based on echo and CT findings, I discussed with groutman who recommend transfer to tertiary center for cardiothoracic evaluation. I called [facility] transfer center and spoke with the cardiothoracic surgeon who accepted the patient. Patient accepted for transfer under the medical team with cardiothoracic consult. Accepting physician is Dr. Eladio Ross. Patient and RN informed. Continue management until discharged. Transfer paperwork completed and given to RN Counselled patient on need for inpatient rehab for IVDU/alcohol. She is open to this. She also reports being homeless. CM at Accepting facility can work on this once patient is managed Admission and Anticipated Discharge Date Admission Date: July 03, 2021 Subjective Patient seen and examined. Reports cough, pleuritic chest pain at the sides Denies any nausea, vomiting, abdominal pain, diarrhea Reports body aches. Reported some dysuria on admission. No frequency urgency Patient reports IV drug use. Uses heroin and meth. Reports that she shares needles occasionally under with her . Last use was 2 days ago. Smokes about 1 pack/day. Has been smoking since her teens. Reports occasional alcohol use. Denies history of withdrawal from alcohol. Currently homeless. Physical Exam Constitutional: + ill appearing and + well hydrated; no acute distress Eyes: PERRL, conjunctivae normal, anicteric sclerae ENMT: external ear and nose normal, oropharynx normal Respiratory: normal respiratory effort; no respiratory distress Some scattered crackles at the base Cardiovascular: Rate/Rhythm: regular rate and regular rhythm S1-S2 Gastrointestinal (Abdomen): normal bowel sounds, soft, nontender, no hepatosplenomegaly Musculoskeletal: no cyanosis or clubbing, extremities motor strength 5/5 Neurologic: PERRL, EOMI, accommodation nl, no face palsy, no dysarthria Psychiatric: A+Ox3, euthymic affect Results & Data Results & Data ([facility]) Vital Signs (Past 12 Hours) Vital Signs Temp Pulse Pulse Pulse Resp BP BP 07/03/21 12:00 76 19 122/80 07/03/21 11:00 75 31 H 138/88 07/03/21 10:12 37.3 C 78 24 120/80 07/03/21 10:00 73 24 120/80 07/03/21 09:30 78 34 H 07/03/21 09:00 74 28 H 131/84 07/03/21 08:00 36.7 C 81 19 113/78 07/03/21 07:30 79 20 07/03/21 07:00 81 18 07/03/21 06:30 82 23 07/03/21 06:07 07/03/21 06:00 92 H 82 24 125/81 125/81 07/03/21 05:30 83 28 H 07/03/21 05:00 98 H 31 H 132/74 07/03/21 04:30 101 H 31 H 07/03/21 04:16 96 H 96 H 38 H 131/80 131/80 07/03/21 04:00 99 H 44 H 118/76 07/03/21 03:52 37.3 C 99 H 99 H 32 H 117/68 117/68 07/03/21 03:30 95 H 38 H 07/03/21 03:00 37.4 C 105 H 103 H 25 H 134/81 134/81 07/03/21 02:30 100 H 39 H 07/03/21 02:00 93 H 28 H 129/74 Pulse Ox Pulse Ox 07/03/21 12:00 94 07/03/21 11:00 95 07/03/21 10:12 93 07/03/21 10:00 97 07/03/21 09:30 92 07/03/21 09:00 97 07/03/21 08:00 96 07/03/21 07:30 96 07/03/21 07:00 95 07/03/21 06:30 96 07/03/21 06:07 98 07/03/21 06:00 97 07/03/21 05:30 95 07/03/21 05:00 97 07/03/21 04:30 97 07/03/21 04:16 99 07/03/21 04:00 97 07/03/21 03:52 98 07/03/21 03:30 94 07/03/21 03:00 93 07/03/21 02:30 96 07/03/21 02:00 95 Laboratory Results Abnormal lab results 07/02/21 07/02/21 07/02/21 Range/Units 21:00 21:36 21:36 WBC 30.55 H* (4.8-10.8) K/uL RBC 4.05 L (4.2-5.4) M/uL Hgb (12.0-16.0) g/dL Hct 35.3 L (37-47) % Neut # (Auto) 26.26 H (1.4-6.5) K/uL [place] # (Auto) 1.94 H (0.11-0.59) K/uL Immature Gran # (Auto) 0.48 H (0.00-0.02) K/uL INR 1.2 H (0.9-1.1) Sodium (136-145) mmol/L Chloride (98-107) mmol/L BUN/Creatinine Ratio (10-20) Glucose (70-99(Fasting)) mg/dl Hemoglobin A1c (4.5-5.6) % Osmolality (280-300) mOsm/kg Calcium (8.5-10.1) mg/dl Magnesium (1.7-2.4) mg/dl Alkaline Phosphatase (34-104) U/L Albumin (3.4-5.0) gm/dl Globulin (2.5-4.0) gm/dl Albumin/Globulin Ratio (0.9-2) Urine Appearance Cloudy A (Clear) Ur Specific [place] (1.000-1.030) Urine Protein 2+ H (Negative) Urine Blood 3+ H (Negative) Urine WBC (Auto) 10-30 H (0-5) /hpf Urine RBC (Auto) (0-4) /hpf U Epithel Cells (Auto) >30 H (0-5) /lpf Urine Trichomonas Present H (None Prsent) Urine Yeast Budding A (None Prsent) Bld Cult Staph aureus PCR (Negative) Blood Culture MRSA PCR (Negative) 07/02/21 07/02/21 07/02/21 Range/Units 21:36 21:36 21:36 WBC (4.8-10.8) K/uL RBC (4.2-5.4) M/uL Hgb (12.0-16.0) g/dL Hct (37-47) % Neut # (Auto) (1.4-6.5) K/uL [place] # (Auto) (0.11-0.59) K/uL Immature Gran # (Auto) (0.00-0.02) K/uL INR (0.9-1.1) Sodium 128 L (136-145) mmol/L Chloride 93 L (98-107) mmol/L BUN/Creatinine Ratio 31.5 H (10-20) Glucose 112 H (70-99(Fasting)) mg/dl Hemoglobin A1c 6.1 H (4.5-5.6) % Osmolality 302 H (280-300) mOsm/kg Calcium 8.4 L (8.5-10.1) mg/dl Magnesium 2.6 H (1.7-2.4) mg/dl Alkaline Phosphatase 156 H (34-104) U/L Albumin 3.0 L (3.4-5.0) gm/dl Globulin 4.6 H (2.5-4.0) gm/dl Albumin/Globulin Ratio 0.7 L (0.9-2) Urine Appearance (Clear) Ur Specific [place] (1.000-1.030) Urine Protein (Negative) Urine Blood (Negative) Urine WBC (Auto) (0-5) /hpf Urine RBC (Auto) (0-4) /hpf U Epithel Cells (Auto) (0-5) /lpf Urine Trichomonas (None Prsent) Urine Yeast (None Prsent) Bld Cult Staph aureus PCR (Negative) Blood Culture MRSA PCR (Negative) 07/02/21 07/03/21 07/03/21 Range/Units 21:36 05:36 05:36 WBC 26.80 H (4.8-10.8) K/uL RBC 3.53 L (4.2-5.4) M/uL Hgb 10.5 L (12.0-16.0) g/dL Hct 30.5 L (37-47) % Neut # (Auto) 22.10 H (1.4-6.5) K/uL [place] # (Auto) 2.45 H (0.11-0.59) K/uL Immature Gran # (Auto) 0.41 H (0.00-0.02) K/uL INR (0.9-1.1) Sodium 134 L (136-145) mmol/L Chloride (98-107) mmol/L BUN/Creatinine Ratio 29.0 H (10-20) Glucose 129 H (70-99(Fasting)) mg/dl Hemoglobin A1c (4.5-5.6) % Osmolality (280-300) mOsm/kg Calcium 7.6 L (8.5-10.1) mg/dl Magnesium (1.7-2.4) mg/dl Alkaline Phosphatase (34-104) U/L Albumin (3.4-5.0) gm/dl Globulin (2.5-4.0) gm/dl Albumin/Globulin Ratio (0.9-2) Urine Appearance (Clear) Ur Specific [place] (1.000-1.030) Urine Protein (Negative) Urine Blood (Negative) Urine WBC (Auto) (0-5) /hpf Urine RBC (Auto) (0-4) /hpf U Epithel Cells (Auto) (0-5) /lpf Urine Trichomonas (None Prsent) Urine Yeast (None Prsent) Bld Cult Staph aureus PCR Positive A (Negative) Blood Culture MRSA PCR Positive A* (Negative) 07/03/21 Range/Units 14:34 WBC (4.8-10.8) K/uL RBC (4.2-5.4) M/uL Hgb (12.0-16.0) g/dL Hct (37-47) % Neut # (Auto) (1.4-6.5) K/uL [place] # (Auto) (0.11-0.59) K/uL Immature Gran # (Auto) (0.00-0.02) K/uL INR (0.9-1.1) Sodium (136-145) mmol/L Chloride (98-107) mmol/L BUN/Creatinine Ratio (10-20) Glucose (70-99(Fasting)) mg/dl Hemoglobin A1c (4.5-5.6) % Osmolality (280-300) mOsm/kg Calcium (8.5-10.1) mg/dl Magnesium (1.7-2.4) mg/dl Alkaline Phosphatase (34-104) U/L Albumin (3.4-5.0) gm/dl Globulin (2.5-4.0) gm/dl Albumin/Globulin Ratio (0.9-2) Urine Appearance (Clear) Ur Specific [place] > 1.045 H (1.000-1.030) Urine Protein 1+ H (Negative) Urine Blood 2+ H (Negative) Urine WBC (Auto) 10-30 H (0-5) /hpf Urine RBC (Auto) 10-30 H (0-4) /hpf U Epithel Cells (Auto) >30 H (0-5) /lpf Urine Trichomonas (None Prsent) Urine Yeast (None Prsent) Bld Cult Staph aureus PCR (Negative) Blood Culture MRSA PCR (Negative)
[2021-07-03 15:05] LABS: Appearance Urine Clear (Clear); Bacteria Urine Automated Negative (Negative); Bilirubin Urine Negative (Negative); Blood Urine 2+ (Negative); Cast Urine Automated 0 /lpf (0-5); Color Urine Dark Yellow; Epithelial Cell Urine Auto >30 /lpf (0-5); Glucose Urine UA Negative (Negative); Ketones Urine Negative (Negative); Leukocyte Esterase Urine Negative (Negative); Nitrite Urine Negative (Negative); Protein Urine 1+ (Negative); Specific Gravity Urine > 1.045 (1.000-1.030); Urobilinogen Urine Negative (Negative); pH Urine 5.5 (4.5-7.5)
--- NOTE | 2021-07-03 15:58 | Discharge Summary ---
Date of Service July 03, 2021 Admission HPI Per Admitting Provider History obtained from patient and records. Medical history significant for chronic hyponatremia, IV drug abuse, ongoing tobacco/alcohol use. Patient has been sick the last week. Body aches, pleuritic chest pain with cough productive of junky sputum and shortness of breath. Achy abdominal pain with constipation symptoms. Dysuria complaints. No headache. Poor appetite. No known recent COVID-19 contacts. Patient completed COVID-19 vaccination. Syncopal event about 5 days ago without witnessed seizures. Patient seen at the ER 3 days ago. Cefdinir prescribed for UTI. Urine CS later grew MRSA. Hospital pharmacist tried to contact patient and family to assess clinical status and to recommend switching antibiotic to Bactrim as per documentation. Worsening symptoms despite cefdinir Rx intake. Patient apprehended by police for trespassing at a private property last night. Patient brought to ER for evaluation because she looked sick. Daptomycin and Zosyn given at the ER for sepsis. Medical History as above Surgical History : Tonsillectomy, appendectomy Family History : Heart disease, DM Personal/Social history : 1 pack daily, alcohol abuse, currently unemployed Admission Exam Per Admitting Provider GENERAL: Ill-appearing, slightly anxious, no respiratory distress SKIN: Normal color, warm HEENT: Dewey palpebral conjunctivae, no ptosis, dry buccal mucosa NECK : Supple, no tenderness CHEST : CTA, no tenderness HEART : Tachycardic, no obvious murmurs ABDOMEN: Some distention, central abdominal tenderness EXTREMITIES : No LE swelling/tenderness, no other conspicuous deformities noted NEUROLOGIC : Coherent, no facial asymmetry, no other gross focality Principal Diagnosis 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 Septic pulmonary emboli IV drug use Discharge Exam Constitutional + ill appearing and + well hydrated; no acute distress Eyes PERRL, conjunctivae normal, anicteric sclerae ENMT external ear and nose normal, oropharynx normal Respiratory normal respiratory effort; no respiratory distress Cardiovascular Rate/Rhythm: regular rate and regular rhythm S1 S2 Gastrointestinal (Abdomen) normal bowel sounds, soft, nontender, no hepatosplenomegaly Musculoskeletal no cyanosis or clubbing, extremities motor strength 5/5 Neurologic PERRL, EOMI, accommodation nl, no face palsy, no dysarthria Psychiatric A+Ox3, euthymic affect Discharge Data Allergies Allergy/AdvReac Type Severity Reaction Status Date / Time vancomycin Allergy Mild Hives Verified 07/03/21 04:45 Consultations 07/02/21 23:13 ED Decision to Admit Stat 07/03/21 12:17 Consult Cardiology Routine 07/03/21 12:18 Consult Infectious Diseases Routine Ordered Studies 07/02/21 21:16 CT abd pelvis IV con only Urgent Lung bases: The heart is normal in size and without pericardial effusion. Multifocal airspace consolidation is seen at the lung bases. Foci of cavitation are seen within consolidation at the left lung base on image #[id number]. A small pleural effusion is seen on the right. Liver: The contrast-enhanced liver is enlarged, measuring 21.4 cm in length. The liver is otherwise normal in contour and attenuation. There is no intrahepatic biliary ductal dilatation. The hepatic veins and portal veins are patent. Gallbladder: Unremarkable. Spleen: The spleen is enlarged measuring 14 cm in length. Pancreas: Unremarkable. Adrenal glands: Unremarkable. Kidneys: There is significant parenchymal scarring and asymmetric cortical atrophy of the left kidney. There is compensatory hypertrophy of the right kidney. No hydronephrosis is seen. Enhancement of the left kidney is diminished as compared to the right. Abdominal vasculature: The abdominal aorta is normal in course and caliber. Bowel: There is no bowel obstruction. Foci fecal retention are seen throughout the colon. There is underdistention of the descending colon and sigmoid. The appendix is not clearly visualized. Peritoneum: There is no intraperitoneal free air or abdominal ascites. Lymphadenopathy: None. Pelvic viscera: The bladder, uterus, and adnexa are normal as visualized. There is trace free fluid in the cul-de-sac. Skeletal structures: No lytic or blastic lesions are seen. IMPRESSION: 1. Multifocal airspace consolidation is seen at both lung bases, with foci of cavitation on the left. The appearance is typical for pneumonia. Clinical correlation will be required and radiographic follow-up to resolution is recommended. 2. Small right pleural effusion. 3. There is asymmetric parenchymal scarring and cortical atrophy of the left kidney with compensatory hypertrophy of the right kidney. This is unchanged from previous. 4. Nonvisualization of the appendix. 5. Trace nonspecific free fluid in the pelvis is likely within physiologic limits. 6. Hepatosplenomegaly. 7. Additional findings as above. 07/03/21 00:16 CT angio chest PE protocol Stat Thyroid: Imaged portions of the thyroid gland are normal in size and attenuation. Thoracic aorta: The thoracic aorta is normal in caliber and demonstrates standard 3-vessel arch anatomy. No dissection is seen. Pulmonary vasculature: The pulmonary trunk is normal in caliber. There are no filling defects identified in main or lobar pulmonary branches. There are small segmental/subsegmental pulmonary emboli within branches of the right upper lobe, the right lower lobe, and the lingular pulmonary arteries. The segmental and subsegmental branches are suboptimally assessed due to significant motion artifact. Heart: The heart is normal in size and without pericardial effusion. Lungs and pleural spaces: There is multifocal patchy/nodular airspace consolidation seen throughout both lungs, several foci of which demonstrate central cavitation. The trachea and central airways are clear. No pneumothorax is seen. There are small right and trace left pleural effusions. Mediastinum: There is no mediastinal lymphadenopathy. Barbara: Enlarged hilar lymph nodes measure up to 15 mm in short axis. Axillae: There is no axillary lymphadenopathy. Upper abdomen: Partially visualized upper abdominal viscera is within normal limits. Skeletal structures: No lytic or blastic bony lesions are seen. There is an acute left lateral ninth rib fracture. IMPRESSION: 1. There are small segmental/subsegmental pulmonary emboli seen bilaterally. 2. There is an acute left lateral 9th rib fracture. 3. Multifocal patchy/nodular airspace consolidation is seen throughout both lungs with scattered foci of cavitation. The appearance is typical for multifocal pneumonia, and/or possibly septic emboli. Clinical correlation will be essential. 4. Small right and trace left pleural effusions. 5. No pneumothorax is seen. 6. Bilateral hilar adenopathy is likely reactive. Hospital Course (1) Sepsis: MRSA sepsis Infective endocarditis with Tricuspid valvular vegetation Septic pulmonary emboli Patient presented with shortness of breath with chest pain CXR showed multifocal bilateral airspace opacity and acute displaced left ninth rib fracture. No pneumothorax. Lab work notable for leukocytosis [30,000 on admission], sodium of 128 on admission [134 this morning], alkaline phosphatase 156, hemoglobin A1c of 6.1 lactate was 1.9. Urinalysis had negative nitrite and esterase, 10-30 WBC, epithelial cells. CT abdomen pelvis noted asymmetric parenchymal scarring and cortical atrophy of the left kidney with compensatory hypertrophy of the right kidney unchanged from prior, hepatosplenomegaly. Chest CT angiogram showed small segmental and subsegmental pulmonary emboli bilaterally with acute left lateral ninth rib fracture, multifocal patchy airspace consolidation throughout both lungs with scattered foci of cavitation, small right and trace left pleural effusion. Transthoracic echocardiogram showed a large tricuspid valvular vegetation measuring 1.8 x 2 cm with mild tricuspid regurgitation EF of 60 to 65%, no pericardial effusion. Blood cultures growing GPC in clusters in both bottles positive for MRSA Patient was started on vancomycin overnight on admission but had allergic reaction to hives per RN. Hyponatremia likely to due alcohol use Continue daptomycin and zosyn Repeat blood cultures Infectious disease consult. Based on echo and CT findings, I discussed with pipe line repairer who recommend transfer to tertiary center for cardiothoracic evaluation. I called [facility] transfer center and spoke with the cardiothoracic surgeon who accepted the patient. Patient accepted for transfer under the medical team with cardiothoracic consult. Accepting physician is Dr. Eladio Ross. Patient and RN informed. Continue management until discharged. Transfer paperwork completed and given to RN Counselled patient on need for inpatient rehab for IVDU/alcohol. She is open to this. She also reports being homeless. CM at Accepting facility can work on this once patient is managed Total Time Total Time Spent Total Time Spent (In Minutes): 65 Total Time Includes: Examination of the Patient, Discharge Planning, Medication Reconciliation, Communication With Other Providers and Other Discharge Plan Discharge Items Patient Disposition: Transfer Acute Care Hospital Reason For Visit: SEPSIS, SYNCOPE Discharge Diagnosis: 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 Septic pulmonary emboli IV drug use Activity: Resume your previous activity Non-emergency contact: Primary Care Provider, Surgeon and [employer] Tender Call non-emergency contact if: you have any medication questions and your symptoms worsen Follow-up/Referrals: PCP,NO [Primary Care Provider] - Diet: Regular Addtl Attending Provider Instructions: Mrs Kevin Escobar presented to the hospital complaining of feeling sick with body aches, chest pain, cough and shortness of breath. You were evaluated and found to have sepsis with MRSA bacteremia. Echocardiogram showed infective endocarditis [infection involving the heart and the valves] with tricuspid valve full of vegetation. You are being transferred over to [facility] for further evaluation by the cardiothoracic surgeon and continued management. You were started on vancomycin in the hospital and had an allergic reaction (hives). You are currently on IV daptomycin and zosyn. It is very important that you quit using IV drugs as we discussed. You will benefit from inpatient rehab when you are ready for discharge from [facility]. It was a pleasure taking care of you. Pending Studies at Discharge: Yes Studies:: Blood cultures Stand-Alone Forms: My [facility] Skilled Items Patient informed of condition?: Yes DNR: No Discharge Level of Care: Other Communicable Disease: No Discharge Prognosis: Other Lines: Peripheral IV Urinary Catheter: No Medications and DC Order Prescriptions: Discontinued cefdinir 300 mg capsule 300 mg PO BID 10 Days Qty: 20 RF: 0 Discharge Orders: Discharge Order (Routine); Ordered 07/03/21 Ordered By: Nhi Otto/Gonzalo Patient Handouts: A1C Admission Data Admit Date/Time: 07/03/21 00:23 Attending Provider: Nhi Bird I. Admit Provider: Edis Hoyos Primary Care Provider: PCP,NO Other Providers: Edis Hoyos ; Juan Luis Cadet ; Steve Palafox ; Dewayne Duran ; Sotero Watt I. ; Jose Arcos II ; Nery Haynes ; Olivier Reyna ; Clifton Alfaro
[2021-07-03] MEDS ORDERED: DAPTOmycin 500 MG in SYRINGE 0 ML IV SCH (16:00)
[2021-07-04] MEDS ORDERED: THIAMINE HCL 100 MG TAB PO SCH (09:00)
[2021-07-04] MEDS ORDERED: FOLIC ACID 1 MG TAB PO SCH (09:00)
[2021-07-04] MEDS ORDERED: VANCOMYCIN TROUGH ONE (11:30)
== END 2021-07-03 18:10 | disposition short-term general hospital (02) | DRG 871 ==
LOC: ED 20:20 → EDINP 07-03 00:23 → UNDODISIN 07-03 14:21

== ENCOUNTER 2021-07-12 16:24 | Inpatient (IN) ==
[2021-07-12] MEDS ORDERED: ACETAMINOPHEN 325 MG TAB PO STA (16:42)
[2021-07-12] MEDS ORDERED: DAPTOmycin 475 MG in SYRINGE 0 ML IV STA (16:43)
[2021-07-12] MEDS ORDERED: SODIUM CHLORIDE 0.9% 1000ML 1,000 ML IV ONE ×3 (16:43→23:53)
[2021-07-12] MEDS ORDERED: PATIENT'S HEIGHT AND/OR WEIGHT NEEDED STA (16:44)
[2021-07-12] MEDS ORDERED: Heparin IV Adult Wt-Based Standard WITH Bolus Protocol IV STA (16:45)
--- NOTE | 2021-07-12 16:46 | Emergency Department Note ---
History of Present Illness General Chief complaint: Infection Stated complaint: Breathing Difficulty, Anxiety Time Seen by Provider: 07/12/21 16:26 Source: patient and EMS Mode of arrival: EMS History of Present Illness Provider complaint: Shortness of breath Onset (ago): week(s) Location: chest Pain Consistency: + intermittent Quality: + other (Short of breath) Exacerbated By: + other (Exertion or anxiety) Associated symptoms: + chest pain, + fever/chills and + shortness of breath; no cough, no headaches or no nausea/vomiting This is a 30-year-old female who left [facility] about a week ago for endocarditis and septic pulmonary emboli presenting with shortness of breath. She states that she has been short of breath the entire time she has been sick. She did go to [facility] several days ago because her doctor scared her into going back. She stated she waited on a stretcher all day and left [place] without any evaluation. She presents today because she was injecting heroin and meth today at 11:00. She states her came home and found her difficult to arouse and called EMS. EMS states that she was not unresponsive when they reached her. She was smoking a cigarette outside when they got to the house. She states she feels extremely anxious. Her shortness of breath is chronic and not seemingly worse today. She does feel like she has a fever. She states she left [facility] because they were not allowing her to come due to Covid regulations and she got extremely anxious and left. She states that she uses clean needles and does not share needles. She had chest pain about 2 days ago. She has difficulty describing it. She has not had any chest pain since. She is not vomiting or having abdominal pain. She is having rhinorrhea but no cough. She denies diarrhea or urinary symptoms. She was on anticoagulants when she was in the hospital here and at [place] but has not taken any since. She is not on antibiotics. She denies any injury or fall. She denies any headache. She denies suicidal ideation or intentional overdose. Home Medications Medication Instructions Recorded Confirmed Type cefdinir 300 mg capsule 300 mg PO BID 07/12/21 07/12/21 History Allergies Allergy/AdvReac Type Severity Reaction Status Date / Time vancomycin Allergy Mild Hives Verified 07/12/21 16:49 Past Med/Surg History Medical History History of drug use No chronic diseases present Surgical History No significant past surgical history Family History Other No significant family history Social History Smoking Status: Current every day smoker Tobacco Type: Cigarettes Hx Alcohol Use: Yes Alcohol type: hard liquor Hx Substance Use: Yes Last Used Substance: Just Prior to Arrival Preferred Language: Salvadorean Communication Ability: Effective Machine Packager Required: No Beliefs That Will Affect Care: None marital status: Single Current Living Situation: Spouse How many Children do You have: 0 Other Information That Helps Us Care for You: No Feels Safe at Home: Yes Assistive Devices: None Review of Systems See HPI for pertinent positives & negatives. and A total of 10 systems reviewed and were otherwise negative Physical Exam Vital Signs Vital Signs - 24 hr 07/12/21 16:33 07/12/21 16:42 07/12/21 16:45 Temperature 38.9 C H Temperature Source Oral Pulse Rate 147 H 140 H 140 H Pulse Rate from SpO2 Sensor 147 H 140 H Pulse Rhythm Regular Pulse Strength Normal Respiratory Rate 18 24 20 Respiratory Effort / Characteristics Non-Labored Spontaneous Respiratory Depth Normal Respiratory Pattern Regular Blood Pressure 122/55 L Blood Pressure Mean 77 Pulse Oximetry 93 88 L 99 Oxygen Delivery Method Room Air Sepsis Recent Fever Within 48 Hours Yes Sepsis New/Unexplained Change in Mental Status Yes Sepsis Action Taken by Nursing Physician Notified 07/12/21 17:00 07/12/21 17:15 07/12/21 17:22 Temperature Temperature Source Pulse Rate 145 H 144 H 146 H Pulse Rate from SpO2 Sensor Pulse Rhythm Pulse Strength Respiratory Rate 23 17 18 Respiratory Effort / Characteristics Respiratory Depth Respiratory Pattern Blood Pressure 96/50 L Blood Pressure Mean 65 Pulse Oximetry Oxygen Delivery Method Sepsis Recent Fever Within 48 Hours Sepsis New/Unexplained Change in Mental Status Sepsis Action Taken by Nursing 07/12/21 17:30 07/12/21 17:50 07/12/21 18:00 Temperature Temperature Source Pulse Rate 148 H 140 H 139 H Pulse Rate from SpO2 Sensor 140 H 139 H Pulse Rhythm Pulse Strength Respiratory Rate 19 28 H 24 Respiratory Effort / Characteristics Respiratory Depth Respiratory Pattern Blood Pressure 105/49 L 90/44 L 89/49 L Blood Pressure Mean 67 59 62 Pulse Oximetry 97 98 Oxygen Delivery Method Sepsis Recent Fever Within 48 Hours Sepsis New/Unexplained Change in Mental Status Sepsis Action Taken by Nursing 07/12/21 18:15 07/12/21 18:30 07/12/21 18:42 Temperature 36.8 C Temperature Source Oral Pulse Rate 132 H 123 H Pulse Rate from SpO2 Sensor 132 H 124 H Pulse Rhythm Pulse Strength Respiratory Rate 23 17 Respiratory Effort / Characteristics Respiratory Depth Respiratory Pattern Blood Pressure Blood Pressure Mean Pulse Oximetry 97 98 Oxygen Delivery Method Sepsis Recent Fever Within 48 Hours Sepsis New/Unexplained Change in Mental Status Sepsis Action Taken by Nursing 07/12/21 18:45 07/12/21 18:46 07/12/21 19:00 Temperature Temperature Source Pulse Rate 120 H 121 H 121 H Pulse Rate from SpO2 Sensor 120 H 121 H 121 H Pulse Rhythm Pulse Strength Respiratory Rate 16 17 24 Respiratory Effort / Characteristics Respiratory Depth Respiratory Pattern Blood Pressure 81/38 L Blood Pressure Mean 52 Pulse Oximetry 98 98 98 Oxygen Delivery Method Sepsis Recent Fever Within 48 Hours Sepsis New/Unexplained Change in Mental Status Sepsis Action Taken by Nursing Constitutional: Vital signs reviewed. Eyes: Pupils are equal round reactive to light. Conjunctiva are noninjected. ENT: Pharynx is clear without erythema or exudate. Mucous membranes are dry. Neck supple without meningeal signs. Respiratory: Clear to auscultation bilaterally. Breath sounds are equal bilaterally. Cardiovascular: Tachycardic. Heart rate 140. GI: Soft, nondistended and nontender. Bowel sounds are present. Rectal: Guaiac negative brown stool Musculoskeletal: No peripheral edema. No lower extremity tenderness. Track rogers to the right upper extremity without abscess. Integumentary: No cyanosis. or jaundice. Neurological: The patient is awake and alert. No focal deficits. Psychiatric: Very anxious. Course Consultations Consultation #1: Water Purifier Dr. Ernesto Trimble -recommended adding linezolid. He did not feel the patient needed to go to the ICU. I will call the hospitalist. Time: 18:12 Administered Medications Sodium Chloride (Nss 1000ml) 1,000 mls @ 200 mls/hr IV .Q5H RIKKI Stop: 08/11/21 19:19 Last Admin: 07/12/21 19:51 Dose: 200 mls/hr Documented by: [id number] Piperacillin Sod/Tazobactam (Sod 3.375 gm/ Dextrose) 115 mls @ 28.75 mls/hr IV Q8H RIKKI; Protocol Stop: 07/19/21 19:19 Last Admin: 07/12/21 19:59 Dose: 28.8 mls/hr Documented by: [id number] Nicotine (Nicotine 21 Mg/24 Hr Tdsy) 21 mg TD DAILY RIKKI Stop: 08/11/21 19:29 Last Admin: 07/12/21 20:03 Dose: 21 mg Documented by: [id number] Discontinued Medications Acetaminophen (Acetaminophen 325 Mg Tab) 650 mg PO NOW STA Stop: 07/12/21 16:43 Last Admin: 07/12/21 17:17 Dose: 650 mg Documented by: [id number] Heparin Sodium (Porcine) (Heparin Sod (Porcine) 1000 Unit/Ml) 5,000 units IV NOW ONE Stop: 07/12/21 17:02 Last Admin: 07/12/21 17:19 Dose: 5,000 units Documented by: [id number] Cosigned by: [id number] Daptomycin 475 mg/ Syringe 9.5 mls @ 4.75 mls/min IV NOW STA; Protocol Stop: 07/12/21 16:44 Last Admin: 07/12/21 18:11 Dose: 4.75 mls/min Documented by: [id number] Sodium Chloride (Nss 1000ml) 1,000 mls @ 999 mls/hr IV .Q1H1M ONE Stop: 07/12/21 17:43 Last Infusion: 07/12/21 18:39 Dose: 0 mls/hr Documented by: [id number] Admin: 07/12/21 17:17 Dose: 999 mls/hr Documented by: [id number] Heparin Sodium/Dextrose (Heparin Sodium/Dextrose) 25,000 units in 500 mls @ 0 mls/hr IV .Q0M RIKKI; Protocol Stop: 08/11/21 17:14 Last Titration: 07/12/21 17:20 Dose: 0 units/hr, 0 mls/hr Documented by: [id number] Cosigned by: [id number] Admin: 07/12/21 17:20 Dose: 1,050 units/hr, 21 mls/hr Documented by: [id number] Cosigned by: [id number] Sodium Chloride (Nss 1000ml) 1,000 mls @ 999 mls/hr IV .Q1H1M ONE Stop: 07/12/21 19:30 Last Infusion: 07/12/21 19:40 Dose: 0 mls/hr Documented by: [id number] Admin: 07/12/21 18:39 Dose: 999 mls/hr Documented by: [id number] Sodium Chloride (Nss 1000ml) 1,000 mls @ 999 mls/hr IV .Q1H1M RIKKI Stop: 07/12/21 20:20 Last Admin: 07/12/21 19:32 Dose: Not Given Documented by: [id number] Magnesium Sulfate/Dextrose (Magnesium Sulfate / D5w) 1 gm in 100 mls @ 50 mls/hr IV Q2H STA Stop: 07/12/21 22:53 Last Admin: 07/12/21 21:45 Dose: 50 mls/hr Documented by: [id number] Ioversol (Optiray 320 125ml) 120 ml IV ONCE ONE Stop: 07/12/21 17:49 Last Admin: 07/12/21 17:48 Dose: 120 ml Documented by: [id number] Linezolid (Linezolid 600 Mg/300 Ml D5w) 600 mg IV NOW STA Stop: 07/12/21 18:11 Last Admin: 07/12/21 19:56 Dose: 600 mg Documented by: [id number] Critical Care Time Critical Care Time: Yes Total Critical Care Time: 50 I have personally spent approximately 50 minutes of critical care time in the direct management of this patient. This includes bedside care, interpretation of diagnostic studies, and testing, discussion with consultants, patient, and family members, and other required patient management activities. These minutes are in excess of all separately billable procedures. Medical Decision Making Differential Diagnosis Sepsis, pulmonary emboli, saddle embolus, polysubstance abuse, infective endocarditis, bacteremia Medical Records Attestation: I reviewed the patient's medical records. I did perform a limited focused review of portions of the patient's old chart on the electronic medical record. The patient was admitted to the hospital earlier this month for infective endocarditis as well as septic pulmonary emboli. She was transferred to [facility] for further care. She had been treated with vancomycin as her culture grew out MRSA but she developed a rash to it. Home Medications Current Medication List: was personally reviewed by me Laboratory Data Attestation: I reviewed the patient's lab results. Result diagrams: 07/12/21 16:58 07/12/21 16:58 Lab Results 07/12/21 07/12/21 07/12/21 Range/Units 16:58 16:58 16:58 WBC 11.21 H (4.8-10.8) K/uL RBC 2.45 L (4.2-5.4) M/uL Hgb 7.2 L (12.0-16.0) g/dL POC Hgb (12.0-16.0) g/dl Hct 22.1 L (37-47) % POC Hct (37-47) % MCV 90.2 (80-100) fL MCH 29.4 (25-34) pg MCHC 32.6 (32-36) g/dL RDW Std Deviation 47.0 H (36.4-46.3) fL RDW Coeff of King[place] 14.1 (11.5-14.5) % Plt Count 244 (130-400) K/uL MPV 9.3 (7.4-10.4) fL Immature Gran % (Auto) 0.8 % Neut % (Auto) 90.7 % Lymph % (Auto) 4.7 % [place] % (Auto) 3.3 % Eos % (Auto) 0.4 % Baso % (Auto) 0.1 % Neut # (Auto) 10.17 H (1.4-6.5) K/uL Lymph # (Auto) 0.53 L (1.2-3.4) K/uL [place] # (Auto) 0.37 (0.11-0.59) K/uL Eos # (Auto) 0.04 (0-0.5) K/uL Baso # (Auto) 0.01 (0-0.2) K/uL Immature Gran # (Auto) 0.09 H (0.00-0.02) K/uL Toxic Vacuolation 1+ Polychromasia 1+ PT 13.5 H (9.0-12.0) Seconds INR 1.4 H (0.9-1.1) APTT 31.9 H (21.0-31.0) Seconds PTT Ratio 1.2 POC Sodium (135-144) mmol/L Sodium (136-145) mmol/L POC Potassium (3.3-5.0) mmol/L Potassium (3.5-5.1) mmol/L POC Chloride (101-112) mmol/L Chloride (98-107) mmol/L Carbon Dioxide (21-32) mmol/L POC Total CO2 (24-31) mmol/L Anion Gap (3-11) POC Anion Gap (16-25) mmol/L POC BUN (7-18) mg/dl BUN (6-23) mg/dl Creatinine (0.6-1.2) mg/dl POC Creatinine (0.6-1.3) mg/dl Est Cr Clr Drug Dosing ml/min Est GFR ( Amer) ml/min Est GFR (Non-Af Amer) ml/min BUN/Creatinine Ratio (10-20) Glucose (70-99(Fasting)) mg/dl POC Glucose (other) (70-99) mg/dl Lactate (0.4-2.0) mmol/L Calcium (8.5-10.1) mg/dl POC Ioniz Calcium Drew (1.12-1.32) mmol/l Magnesium (1.7-2.4) mg/dl Total Bilirubin (0.2-1.0) mg/dl AST (13-39) U/L ALT (7-52) U/L Alkaline Phosphatase (34-104) U/L Total Creatine Kinase (26-192) U/L Troponin I (0-0.04) ng/ml Total Protein (6.0-8.3) gm/dl Albumin (3.4-5.0) gm/dl Globulin (2.5-4.0) gm/dl Albumin/Globulin Ratio (0.9-2) Procalcitonin (0-0.5) ng/ml HCG, Qual Negative (Negative) SARS-CoV-2 (PCR) (Negative) Influenza Type A (PCR) (Neg) Influenza Type B (PCR) (Neg) RSV (RT-PCR) (Neg) Blood Type Blood Type Recheck Antibody Screen Crossmatch 07/12/21 07/12/21 07/12/21 Range/Units 16:58 16:58 16:58 WBC (4.8-10.8) K/uL RBC (4.2-5.4) M/uL Hgb (12.0-16.0) g/dL POC Hgb (12.0-16.0) g/dl Hct (37-47) % POC Hct (37-47) % MCV (80-100) fL MCH (25-34) pg MCHC (32-36) g/dL RDW Std Deviation (36.4-46.3) fL RDW Coeff of Kinga (11.5-14.5) % Plt Count (130-400) K/uL MPV (7.4-10.4) fL Immature Gran % (Auto) % Neut % (Auto) % Lymph % (Auto) % [place] % (Auto) % Eos % (Auto) % Baso % (Auto) % Neut # (Auto) (1.4-6.5) K/uL Lymph # (Auto) (1.2-3.4) K/uL [place] # (Auto) (0.11-0.59) K/uL Eos # (Auto) (0-0.5) K/uL Baso # (Auto) (0-0.2) K/uL Immature Gran # (Auto) (0.00-0.02) K/uL Toxic Vacuolation Polychromasia PT (9.0-12.0) Seconds INR (0.9-1.1) APTT (21.0-31.0) Seconds PTT Ratio POC Sodium (135-144) mmol/L Sodium 132 L (136-145) mmol/L POC Potassium (3.3-5.0) mmol/L Potassium 4.5 (3.5-5.1) mmol/L POC Chloride (101-112) mmol/L Chloride 100 (98-107) mmol/L Carbon Dioxide 24 (21-32) mmol/L POC Total CO2 (24-31) mmol/L Anion Gap 8 (3-11) POC Anion Gap (16-25) mmol/L POC BUN (7-18) mg/dl BUN 21 (6-23) mg/dl Creatinine 0.96 (0.6-1.2) mg/dl POC Creatinine (0.6-1.3) mg/dl Est Cr Clr Drug Dosing 76.4 ml/min Est GFR ( Amer) 91.3 ml/min Est GFR (Non-Af Amer) 78.8 ml/min BUN/Creatinine Ratio 21.9 H (10-20) Glucose 108 H (70-99(Fasting)) mg/dl POC Glucose (other) (70-99) mg/dl Lactate 1.8 (0.4-2.0) mmol/L Calcium 7.8 L (8.5-10.1) mg/dl POC Ioniz Calcium Drew (1.12-1.32) mmol/l Magnesium 1.6 L (1.7-2.4) mg/dl Total Bilirubin 0.4 (0.2-1.0) mg/dl AST 24 (13-39) U/L ALT 15 (7-52) U/L Alkaline Phosphatase 94 (34-104) U/L Total Creatine Kinase 27 (26-192) U/L Troponin I < 0.03 (0-0.04) ng/ml Total Protein 7.1 (6.0-8.3) gm/dl Albumin 2.5 L (3.4-5.0) gm/dl Globulin 4.6 H (2.5-4.0) gm/dl Albumin/Globulin Ratio 0.5 L (0.9-2) Procalcitonin 7.70 H (0-0.5) ng/ml HCG, Qual (Negative) SARS-CoV-2 (PCR) (Negative) Influenza Type A (PCR) (Neg) Influenza Type B (PCR) (Neg) RSV (RT-PCR) (Neg) Blood Type Blood Type Recheck Antibody Screen Crossmatch 07/12/21 07/12/21 07/12/21 Range/Units 17:06 17:29 17:35 WBC (4.8-10.8) K/uL RBC (4.2-5.4) M/uL Hgb (12.0-16.0) g/dL POC Hgb 7.1 L (12.0-16.0) g/dl Hct (37-47) % POC Hct 21 L (37-47) % MCV (80-100) fL MCH (25-34) pg MCHC (32-36) g/dL RDW Std Deviation (36.4-46.3) fL RDW Coeff of Kinga (11.5-14.5) % Plt Count (130-400) K/uL MPV (7.4-10.4) fL Immature Gran % (Auto) % Neut % (Auto) % Lymph % (Auto) % [place] % (Auto) % Eos % (Auto) % Baso % (Auto) % Neut # (Auto) (1.4-6.5) K/uL Lymph # (Auto) (1.2-3.4) K/uL [place] # (Auto) (0.11-0.59) K/uL Eos # (Auto) (0-0.5) K/uL Baso # (Auto) (0-0.2) K/uL Immature Gran # (Auto) (0.00-0.02) K/uL Toxic Vacuolation Polychromasia PT (9.0-12.0) Seconds INR (0.9-1.1) APTT (21.0-31.0) Seconds PTT Ratio POC Sodium 134 L (135-144) mmol/L Sodium (136-145) mmol/L POC Potassium 4.6 (3.3-5.0) mmol/L Potassium (3.5-5.1) mmol/L POC Chloride 99 L (101-112) mmol/L Chloride (98-107) mmol/L Carbon Dioxide (21-32) mmol/L POC Total CO2 26 (24-31) mmol/L Anion Gap (3-11) POC Anion Gap 15.0 L (16-25) mmol/L POC BUN 23 H (7-18) mg/dl BUN (6-23) mg/dl Creatinine (0.6-1.2) mg/dl POC Creatinine 0.9 (0.6-1.3) mg/dl Est Cr Clr Drug Dosing ml/min Est GFR ( Amer) ml/min Est GFR (Non-Af Amer) ml/min BUN/Creatinine Ratio (10-20) Glucose (70-99(Fasting)) mg/dl POC Glucose (other) 116 H (70-99) mg/dl Lactate (0.4-2.0) mmol/L Calcium (8.5-10.1) mg/dl POC Ioniz Calcium Drew 1.09 L (1.12-1.32) mmol/l Magnesium (1.7-2.4) mg/dl Total Bilirubin (0.2-1.0) mg/dl AST (13-39) U/L ALT (7-52) U/L Alkaline Phosphatase (34-104) U/L Total Creatine Kinase (26-192) U/L Troponin I (0-0.04) ng/ml Total Protein (6.0-8.3) gm/dl Albumin (3.4-5.0) gm/dl Globulin (2.5-4.0) gm/dl Albumin/Globulin Ratio (0.9-2) Procalcitonin (0-0.5) ng/ml HCG, Qual (Negative) SARS-CoV-2 (PCR) NEGATIVE (Negative) Influenza Type A (PCR) Negative (Neg) Influenza Type B (PCR) Negative (Neg) RSV (RT-PCR) Negative (Neg) Blood Type AB Negative Blood Type Recheck Antibody Screen NEGATIVE Crossmatch See Detail 07/12/21 Range/Units 18:09 WBC (4.8-10.8) K/uL RBC (4.2-5.4) M/uL Hgb (12.0-16.0) g/dL POC Hgb (12.0-16.0) g/dl Hct (37-47) % POC Hct (37-47) % MCV (80-100) fL MCH (25-34) pg MCHC (32-36) g/dL RDW Std Deviation (36.4-46.3) fL RDW Coeff of Kinga (11.5-14.5) % Plt Count (130-400) K/uL MPV (7.4-10.4) fL Immature Gran % (Auto) % Neut % (Auto) % Lymph % (Auto) % [place] % (Auto) % Eos % (Auto) % Baso % (Auto) % Neut # (Auto) (1.4-6.5) K/uL Lymph # (Auto) (1.2-3.4) K/uL [place] # (Auto) (0.11-0.59) K/uL Eos # (Auto) (0-0.5) K/uL Baso # (Auto) (0-0.2) K/uL Immature Gran # (Auto) (0.00-0.02) K/uL Toxic Vacuolation Polychromasia PT (9.0-12.0) Seconds INR (0.9-1.1) APTT (21.0-31.0) Seconds PTT Ratio POC Sodium (135-144) mmol/L Sodium (136-145) mmol/L POC Potassium (3.3-5.0) mmol/L Potassium (3.5-5.1) mmol/L POC Chloride (101-112) mmol/L Chloride (98-107) mmol/L Carbon Dioxide (21-32) mmol/L POC Total CO2 (24-31) mmol/L Anion Gap (3-11) POC Anion Gap (16-25) mmol/L POC BUN (7-18) mg/dl BUN (6-23) mg/dl Creatinine (0.6-1.2) mg/dl POC Creatinine (0.6-1.3) mg/dl Est Cr Clr Drug Dosing ml/min Est GFR ( Amer) ml/min Est GFR (Non-Af Amer) ml/min BUN/Creatinine Ratio (10-20) Glucose (70-99(Fasting)) mg/dl POC Glucose (other) (70-99) mg/dl Lactate (0.4-2.0) mmol/L Calcium (8.5-10.1) mg/dl POC Ioniz Calcium Drew (1.12-1.32) mmol/l Magnesium (1.7-2.4) mg/dl Total Bilirubin (0.2-1.0) mg/dl AST (13-39) U/L ALT (7-52) U/L Alkaline Phosphatase (34-104) U/L Total Creatine Kinase (26-192) U/L Troponin I (0-0.04) ng/ml Total Protein (6.0-8.3) gm/dl Albumin (3.4-5.0) gm/dl Globulin (2.5-4.0) gm/dl Albumin/Globulin Ratio (0.9-2) Procalcitonin (0-0.5) ng/ml HCG, Qual (Negative) SARS-CoV-2 (PCR) (Negative) Influenza Type A (PCR) (Neg) Influenza Type B (PCR) (Neg) RSV (RT-PCR) (Neg) Blood Type Blood Type Recheck AB Negative Antibody Screen Crossmatch Imaging Data Radiologist's Impression: Chest CTA 07/12/21 16:42 CT angio chest PE protocol CLINICAL HISTORY: hypoxic eval for PE TECHNIQUE: Multidetector row helical CT of the chest was performed. Coronal and sagittal reformations were obtained. Coronal and sagittal MIPS were obtained from the axial data set and were submitted for review. Automated dose lowering techniques and/or adjustment according to patient size were utilized for this exam. Comparison: Comparison is made to CTA chest 07/03/2021 FINDINGS: Lungs and pleura: Previously noted multifocal consolidations are somewhat improved from prior exam. In the interval, cavitary appearance is developing some of these lesions, most prominently in the left upper lobe (series 2 image 85) and in the right lower lobe (image 66. Heart and pericardium: Heart size is normal. No pericardial effusion. Vessels: Nonobstructive pulmonary emboli are again seen Mediastinum and hernan: Prominent mediastinal and bilateral hilar lymph nodes are seen. Chest wall and lower neck: Unremarkable. Abdomen: Unremarkable. Bones: Redemonstration of fracture of the left lateral ninth rib. IMPRESSION: 1. Interval improvement in multifocal consolidations, with decrease in size and number of lesions. Interval development of cavitary change and some of these lesions is seen. 2. Redemonstration of pulmonary emboli, overall similar in appearance to prior exam. No evidence of right heart strain. 3. Left ninth rib fracture. 4. Bilateral hilar lymphadenopathy, likely reactive. ACT 112: Negative or not required by law. Electronically signed by: Rommel Stephens M.D. 07/12/2021 5:59 PM ECG Data Attestation: I personally reviewed and interpreted this ECG as follows: Indication: + SOB/dyspnea and + tachycardia Rate (beats per minute): 144 Rhythm: + sinus tachycardia ECG [place]: + Normal ECG ST segments: + Nonspecific ST abnormalities ECG Findings: no PVCs MDM Narrative I did evaluate the patient as noted above. The patient has a history of pulmonary emboli and infective endocarditis with sepsis and left AMA from the hospital about a week ago. She has not been on any antibiotics or anticoagulants. She is presenting here with shortness of breath, tachycardia and hypotension. IV access was established. I did empirically start the patient on IV daptomycin after discussion with the pharmacist. She does have a allergy to vancomycin and her cultures grew out MRSA from her previous hospitalization. She was also given a bolus of heparin with the intention to start her on an IV drip due to her pulmonary emboli and the fact that she is hypoxemic here. She had an O2 saturation of 88% on room air and was placed on supplemental oxygen via nasal cannula. Her O2 saturation went up to 96%. I did place an order for continuous cardiac monitoring. The monitor showed sinus tachycardia. Heart rate is 140. I did order and personally review the patient's 12-lead EKG as described above. She has sinus tachycardia. I did order and review the patient's blood work as noted in the electronic medical record. Her hemoglobin came back 7.1. The heparin drip was not initiated but she did receive the bolus prior to the result. She denies any vaginal bleeding or rectal bleeding. I did perform a guaiac test which was guaiac negative with brown stool. I did obtain written consent for blood transfusion. She was given 1 unit of packed RBCs. I also treated her with 2 liters of normal saline IV for her hypotension. Her white count is 11.2. Her platelet count is 244. INR is elevated at 1.4. Electrolytes demonstrate a sodium of 132. Her calcium is 7.8. Magnesium is 1.6. Troponin is negative and pro calcitonin is elevated at 7.7. Lactate is 1.8. I did order a CT angiogram of the chest. I did review the images myself as well as the radiology report as described above. She has multiple pulmonary emboli which are unchanged. She has consolidations in both lungs which have improved since her last CT scan but now have some cavitary changes. I did discuss case in detail with the audiovisual technician on-call. He did not feel the patient required admission to the ICU and recommended fluids and Zyvox for pulmonary coverage I did order Zyvox IV. I did discuss the case with the hospitalist who did see the patient in the emergency department. She is not stable for transfer and due to inclement weather we cannot send her by air. The hospitalist did talk to the audiovisual technician who again recommended fluids and antibiotics and then reassessment after fluid resuscitation. Impression & Plan Sepsis, Hyponatremia, Infective endocarditis of tricuspid valve, Pulmonary emboli, Pulmonary cavitary lesion, Multifocal pneumonia, Heroin abuse, Methamphetamine abuse, Hypomagnesemia, Hypocalcemia, Anemia Discharge Plan Visit Data Chief Complaint: Infection Stated Complaint: Breathing Difficulty, Anxiety ED Provider: Juan Luis Dumont Discharge Problem: Sepsis, Hyponatremia, Infective endocarditis of tricuspid valve, Pulmonary emboli, Pulmonary cavitary lesion, Multifocal pneumonia, Heroin abuse, Methamphetamine abuse, Hypomagnesemia, Hypocalcemia, Anemia Patient Disposition: Admitted As Inpatient Discharge Problem: Sepsis Qualifiers: Sepsis type: methicillin resistant Staphylococcus aureus Sepsis acute organ dysfunction status: with acute organ dysfunction Severe sepsis acute organ dysfunction type: unspecified Severe sepsis shock status: with septic shock Qualified Code(s): A41.02 - Sepsis due to Methicillin resistant Staphylococcus aureus Pulmonary emboli Qualifiers: Pulmonary embolism type: septic Chronicity: acute Acute cor pulmonale presence: unspecified Qualified Code(s): I26.90 - Septic pulmonary embolism without acute cor pulmonale Anemia Qualifiers: Anemia type: unspecified type Qualified Code(s): D64.9 - Anemia, unspecified
[2021-07-12] MEDS ORDERED: HEPARIN SOD (PORCINE) 1000 UNIT/ML IV ONE (17:01)
[2021-07-12] MEDS ORDERED: HEPARIN SODIUM/DEXTROSE 25,000 UNITS/500 ML BAG IV SCH ×2 (17:15→21:56)
[2021-07-12 17:19] LABS: Basophils # (auto) 0.01 K/uL (0-0.2); Basophils % (auto) 0.1 %; Eosinophils # (auto) 0.04 K/uL (0-0.5); Eosinophils % (auto) 0.4 %; Hematocrit (blood only) 22.1 % (37-47); Hemoglobin 7.2 g/dL (12.0-16.0); Immature Granulocytes # (auto) 0.09 K/uL (0.00-0.02); Immature Granulocytes % (auto) 0.8 %; Lymphocytes # (auto) 0.53 K/uL (1.2-3.4); Lymphocytes % (auto) 4.7 %; Mean Corpuscular Hemoglobin 29.4 pg (25-34); Mean Corpuscular Hgb Conc 32.6 g/dL (32-36); Mean Corpuscular Volume 90.2 fL (80-100); Mean Platelet Volume 9.3 fL (7.4-10.4); Monocytes # (auto) 0.37 K/uL (0.11-0.59); Monocytes % (auto) 3.3 %; Neutrophils # (auto) 10.17 K/uL (1.4-6.5); Neutrophils % (auto) 90.7 %; Platelet Count 244 K/uL (130-400); RDW Coefficient of Variation 14.1 % (11.5-14.5); Red Blood Count 2.45 M/uL (4.2-5.4); White Blood Count 11.21 K/uL (4.8-10.8)
[2021-07-12] MEDS ORDERED: SODIUM CHLORIDE 0.9% 250 ML IV PRN (17:26)
[2021-07-12 17:29] LABS: INR 1.4 (0.9-1.1); Partial Thromboplastin Ratio 1.2; Partial Thromboplastin Time 31.9 Seconds (21.0-31.0); Prothrombin Time 13.5 Seconds (9.0-12.0)
[2021-07-12 17:35] LABS: iSTAT Creatinine 0.9 mg/dl (0.6-1.3); iSTAT Hemoglobin 7.1 g/dl (12.0-16.0); iSTAT Ionized Calcium 1.09 mmol/l (1.12-1.32); iSTAT Potassium 4.6 mmol/L (3.3-5.0)
[2021-07-12 17:42] LABS: Pregnancy Test, Serum Negative (Negative); Troponin I < 0.03 ng/ml (0-0.04)
[2021-07-12 17:44] LABS: Polychromasia 1+; Toxic Vacuolation 1+
[2021-07-12 17:46] LABS: Alanine Aminotransferase 15 U/L (7-52); Albumin Globulin Ratio 0.5 (0.9-2); Albumin Level 2.5 gm/dl (3.4-5.0); Alkaline Phosphatase 94 U/L (34-104); Anion Gap 8 (3-11); Aspartate Aminotransferase 24 U/L (13-39); BUN Creatinine Ratio 21.9 (10-20); Bilirubin,Total 0.4 mg/dl (0.2-1.0); Blood Urea Nitrogen 21 mg/dl (6-23); Calcium 7.8 mg/dl (8.5-10.1); Carbon Dioxide 24 mmol/L (21-32); Chloride 100 mmol/L (98-107); Creatine Kinase 27 U/L (26-192); Creatinine Clr Calc Pharmacy 76.4 ml/min; Est GFR (African American) 91.3 ml/min; Est GFR (Non-African American) 78.8 ml/min; Globulin 4.6 gm/dl (2.5-4.0); Glucose 108 mg/dl (70-99(Fasting)); Magnesium 1.6 mg/dl (1.7-2.4); Potassium 4.5 mmol/L (3.5-5.1); Sodium 132 mmol/L (136-145); Total Protein 7.1 gm/dl (6.0-8.3)
[2021-07-12] MEDS ORDERED: OPTIRAY 320 125ml IV ONE (17:48)
--- NOTE | 2021-07-12 18:01 | CT Scan Report ---
CT angio chest PE protocol CLINICAL HISTORY: hypoxic eval for PE TECHNIQUE: Multidetector row helical CT of the chest was performed. Coronal and sagittal reformations were obtained. Coronal and sagittal MIPS were obtained from the axial data set and were submitted fo r review. Automated dose lowering techniques and/or adjustment according to patient size were utiliz ed for this exam. Comparison: Comparison is made to CTA chest 07/03/2021 FINDINGS: Lungs and pleura: Previously noted multifocal consolidations are somewhat improved from prior exam. I n the interval, cavitary appearance is developing some of these lesions, most prominently in the left upper lobe (series 2 image 85) and in the right lower lobe (image 66. Heart and pericardium: Heart size is normal. No pericardial effusion. Vessels: Nonobstructive pulmonary emboli are again seen Mediastinum and hernan: Prominent mediastinal and bilateral hilar lymph nodes are seen. Chest wall and lower neck: Unremarkable. Abdomen: Unremarkable. Bones: Redemonstration of fracture of the left lateral ninth rib. IMPRESSION: 1. Interval improvement in multifocal consolidations, with decrease in size and number of lesions. I nterval development of cavitary change and some of these lesions is seen. 2. Redemonstration of pulmonary emboli, overall similar in appearance to prior exam. No evidence of right heart strain. 3. Left ninth rib fracture. 4. Bilateral hilar lymphadenopathy, likely reactive. ACT 112: Negative or not required by law. Electronically signed by: Rommel Stephens M.D. 07/12/2021 5:59 PM
[2021-07-12] MEDS ORDERED: LINEZOLID CONSULT ACTIVE PRN ×2 (18:10→19:20)
[2021-07-12] MEDS ORDERED: LINEZOLID 600 MG/300 ML D5W IV STA (18:10)
[2021-07-12 18:19] LABS: Influenza A virus by PCR Negative (Neg); Influenza B virus by PCR Negative (Neg); RSV by PCR Negative (Neg); SARS CoV2 RNA(COVID-19) InHosp NEGATIVE (Negative)
[2021-07-12] MEDS ORDERED: SODIUM CHLORIDE 0.9% 1000ML 1,000 ML IV SCH ×2 (19:20)
[2021-07-12] MEDS ORDERED: PIPERACILL/TAZOBAC CONSULT ACTIVE PRN (19:20)
[2021-07-12] MEDS: PIPERACILLIN/TAZOBACTAM 3.375 GM in DEXTROSE 5% 100 ML IV SCH (19:59)
[2021-07-12] MEDS: NICOTINE 21 MG/24 HR TDSY TD SCH (20:03)
[2021-07-12 20:46] LABS: Appearance Urine Cloudy (Clear); Bacteria Urine Automated Negative (Negative); Bilirubin Urine Negative (Negative); Blood Urine 3+ (Negative); Color Urine Yellow; Epithelial Cell Urine Auto >30 /lpf (0-5); Glucose Urine UA Negative (Negative); Ketones Urine Negative (Negative); Leukocyte Esterase Urine 1+ (Negative); Nitrite Urine Negative (Negative); Protein Urine 1+ (Negative); RBC Urine Automated >30 /hpf (0-4); Specific Gravity Urine 1.033 (1.000-1.030); Urobilinogen Urine Negative (Negative); WBC Urine Automated >30 /hpf (0-5); pH Urine 5.5 (4.5-7.5)
[2021-07-12] MEDS ORDERED: MAGNESIUM SULFATE / D5W 1 GM/100 ML BAG IV STA (20:54)
[2021-07-12 21:04] LABS: Renal Epithelial Cells Urine 0-5 /lpf (0-5)
[2021-07-12 21:13] LABS: Amphetamines+Metham, Urine Pos (Neg); Barbiturates, Urine Neg (Neg); Benzodiazepine, Urine Neg (Neg); Cocaine, Urine Neg (Neg); MDMA (Ecstacy), Urine Neg (Neg); Methadone, Urine Neg (Neg); Opiate, Urine Neg (Neg); Phencyclidine, Urine Neg (Neg)
[2021-07-12] MEDS ORDERED: Heparin IV Adult Wt-Based Low-Dose *NO* Bolus Protocol IV SCH (21:56)
[2021-07-12] MEDS ORDERED: NITROGLYCERIN SL 0.4 MG/TAB TAB SL PRN (21:56)
[2021-07-12] MEDS ORDERED: ONDANSETRON INJ 2 MG/ML 2 ML VIAL IV PRN (21:56)
[2021-07-12] MEDS ORDERED: MAGNESIUM SULFATE / D5W 1 GM/100 ML BAG IV SCH (22:00)
--- NOTE | 2021-07-12 22:38 | Communication Note ---
Date of Service: July 12, 2021
--- NOTE | 2021-07-12 23:09 | History and Physical Report ---
DATE OF ADMISSION: 07/12/2021. CHIEF COMPLAINT: Endocarditis, IV drug abuse, sepsis. HISTORY OF PRESENT ILLNESS: This is a 30-year-old female with past medical history significant for heroin abuse, methamphetamine abuse, MRSA bacteremia, tobacco abuse disorder, endocarditis of tricuspid valve, presents with drug abuse and endocarditis. The patient was admitted here in the hospital on 07/03/2021 with sepsis, thought to be pneumonia. Workup showed that she is having tricuspid valve endocarditis and blood cultures grew MRSA bacteremia. At that time, cardiology recommended transfer to tertiary care for CT surgery evaluation secondary to endocarditis with septic emboli.She was started on vancomycin and she developed hives to the vancomycin and she was given daptomycin here and also received Zosyn. She was transferred to [facility] on the same day on 07/03/2021 and patient signed out AMA on 07/05/2021. There, she received initially Zyvox, but was again seen by ID and they recommended daptomycin. She also had withdrawal symptoms with heroin and thought also of alcohol and after giving Ativan, she was fine. She was also given IV heparin for subsegmental PE, her PE was thought to be possibly most likely septic emboli.CT surgery was planning to do AngioVac therapy to debulk the lesion based on how she responds to medical therapy, but as the nursing staff were doing rounds, found the patient left the room and had taken her belongings with her. The patient states she was very anxious and her was not able to get there and that is why she signed out AMA and it seems to be she went to [facility] several days ago, but there, they took long time in the ER and she left the place. Today at 11:00,am, her found her in semiconscious state and called the EMS and brought her here. The patient says that she takes iv heroin regularly and metamphetamine once in a while. Says she is addicted to iheroin.. She states she drinks alcohol once every week. She states that she can drink a gallon of alcohol in a month? but not every day. She smokes 1 pack of cigarettes every day. She has some runny nose, some mild cough, feeling hot and cold sweating. Denies any chest pain. She says she has some shortness of breath with exertion, but she can ambulate okay. Climbing steps makes her short of breath. Denies any nausea or vomiting, no abdominal pain, no diarrhea or constipation. Denies any blood in stool or black stool. She said she noticed some blood in the urine while she was in [facility]. After that, she did not notice it. Today morning, she had some slight bleeding from her nose, but it is stopped now. She has some swelling in the legs when she got discharged from [facility]. Her appetite is okay. She is hungry, she wants to eat something now. Her blood pressure is low in the ER in the 80s and tachycardic, saturating okay on room air. It seems to be she received 2 doses of COVID vaccine several months ago, she thinks in the summer, but she did not receive any booster. ALLERGIES: VANCOMYCIN. PAST MEDICAL HISTORY: As mentioned above. PAST SURGICAL HISTORY: No surgical history on file. MEDICATIONS: Currently on cefdinir 300 mg p.o. b.i.d. FAMILY HISTORY: No family history on file. SOCIAL HISTORY: Smokes 1 pack of cigarets every day. Alcohol, drinks alcohol, she says she is not a heavy drinker. She does IV heroin every day, methamphetamines once in a while. Also, marijuana as per [employer]. REVIEW OF SYSTEMS: As per HPI. Rest of the review of systems is negative. PHYSICAL EXAMINATION: GENERAL: The patient is of moderate built, not in acute distress currently. VITAL SIGNS: Temperature 36.8, pulse 120s, blood pressure 81/38, respiratory rate 24, oxygen 98% on room air. HEENT: Pupils equal, round and reactive to light. Oral mucosa moist. NECK: No JVD, no neck masses. CARDIOVASCULAR: S1 and S2 heard. Tachycardia. No murmurs. RESPIRATORY SYSTEM: Normal AP diameter. No accessory muscle use. No wheezing, no crackles. ABDOMEN: Soft, bowel sounds present, nontender, no distention. CENTRAL NERVOUS SYSTEM: Alert and oriented. Speech is clear. Obeys simple commands. Insight is good. Moves extremities. EXTREMITIES: Bilateral +1 lower extremity edema present, no erythema seen. LABORATORY DATA: WBC 11. hemoglobin 7.2, hematocrit 22.1, platelets 244. PT 13.5, INR 1.4, APTT 31.9. Sodium 132, potassium 4.5, chloride 100, CO2 of 24, BUN 21, creatinine 0.9, serum glucose 108. Lactate 1.8, calcium 7.8, magnesium 1.6, total bilirubin 0.4, AST 24, ALT 15, alkaline phosphatase 94, total creatine kinase 27. Troponin I less than 0.03. Procalcitonin is 7.7. HCG qualitative negative. SARS-CoV-2 PCR negative. Influenza A and B PCR negative. RSV PCR negative. IMAGING DATA: CT of the chest shows interval improvement in multifocal consolidation with decrease in the size and number of lesions. Interval development of cavitary changes in some of those lesions is seen. Redemonstration of pulmonary emboli, overall similar in appearance to prior exam. No evidence of right heart strain, left ninth rib fracture, bilateral hilar lymphadenopathy, likely reactive. EKG: Sinus tachycardia at a rate of 144. Nonspecific T-wave abnormality seen. ASSESSMENT AND PLAN: A 30-year-old female presents with recent diagnosis of endocarditis and signed out against medical advice from [facility], presents back with drug abuse and sepsis. 1. Endocarditis, bacteremia with methicillin-resistant Staphylococcus aureus, severe sepsis with hypotension, tachycardia, elevated white count: Received daptomycin and Zyvox in the Emergency Room. We will continue with Zyvox and zosyn. Discussed with pulmonary-critical care. advised for now to follow her in the telemetry. If the patient deteriorates, we will transfer to the intensive care unit. We will continue with IV Zyvox and Zosyn. Follow the cultures. She is receiving 2 liters of fluids and 1 of packed red blood cells now and we will continue maintenance at 200 mL per hour. Closely monitor hemodynamics. Also Infectious Disease consult in a.m. Echo and cardiac consult in a.m. The patient may need to be transferred back to the tertiary care. As per the Emergency Room, they could not transfer tonight because of the bad weather. 2. Pulmonary emboli: Possibly septic emboli. Last time when she was admitted, she was treated with heparin. We will continue. Her hemoccult is negative in the Emergency Room and the hemoglobin has dropped down, we will follow stool for Hemoccult also. The patient denied any active bleeding. We will start her on low dose IV heparin for now. 3. Anemia: Hemoglobin 7.2. Her hemoglobin was 12.3 on 07/02/2021. It was 10.1 at the time of discharge from [facility]. Currently today is 7.2, possibly from the acute infection and sepsis, getting 1 unit of packed red blood cells. If any bleeding source is identified will stop the heparin. Closely monitor the laboratories. 4. Hyponatremia: Getting fluids. Follow repeat laboratories. 5. Hypomagnesemia: We will replace. 6. Drug abuse with IV heroin, methamphetamines: We will monitor for any withdrawal with IV Ativan p.r.n. Also, monitor for any alcohol withdrawal. The patient says she does not drink that much. 7. Tobacco abuse: We will place on nicotine patch. 8. Deep venous thrombosis prophylaxis. DISPOSITION: Closely monitor in tele floor. Level 1 full code, to be determined. Job ID: [id number] MTDD
[2021-07-13] MEDS ORDERED: MAGNESIUM SULFATE / D5W 1 GM/100 ML BAG IV ONE (00:56)
[2021-07-13 01:27] LABS: Hemoglobin 8.5 g/dL (12.0-16.0)
[2021-07-13] MEDS ORDERED: Heparin IV Adult Wt-Based Standard *NO* Bolus Protocol IV ONE (01:28)
[2021-07-13] MEDS ORDERED: Heparin IV Adult Wt-Based Low-Dose *NO* Bolus Protocol IV ONE (01:29)
[2021-07-13 01:38] LABS: Partial Thromboplastin Ratio 1.4
[2021-07-13] MEDS ORDERED: HEPARIN SODIUM/DEXTROSE 25,000 UNITS/500 ML BAG IV SCH (01:45)
[2021-07-13] MEDS: HEPARIN SODIUM/DEXTROSE 25,000 UNITS/500 ML BAG IV SCH (01:47)
[2021-07-13] MEDS: PIPERACILLIN/TAZOBACTAM 3.375 GM in DEXTROSE 5% 100 ML IV SCH ×3 (04:50→20:35)
[2021-07-13] MEDS: LORazepam 1 MG/2 ML VIAL IV PRN ×2 (05:40→19:06)
[2021-07-13] MEDS: ACETAMINOPHEN 325 MG TAB PO PRN ×2 (05:40→23:34)
[2021-07-13] MEDS ORDERED: LINEZOLID 600 MG/300 ML D5W IV SCH (06:00)
[2021-07-13 06:01] LABS: Basophils # (auto) 0.02 K/uL (0-0.2); Basophils % (auto) 0.1 %; Eosinophils # (auto) 0.04 K/uL (0-0.5); Eosinophils % (auto) 0.3 %; Hematocrit (blood only) 25.7 % (37-47); Hemoglobin 8.6 g/dL (12.0-16.0); Immature Granulocytes # (auto) 0.17 K/uL (0.00-0.02); Immature Granulocytes % (auto) 1.2 %; Mean Corpuscular Hemoglobin 29.8 pg (25-34); Mean Corpuscular Hgb Conc 33.5 g/dL (32-36); Mean Corpuscular Volume 88.9 fL (80-100); Mean Platelet Volume 10.1 fL (7.4-10.4); Monocytes # (auto) 0.45 K/uL (0.11-0.59); Monocytes % (auto) 3.2 %; Neutrophils # (auto) 12.54 K/uL (1.4-6.5); Neutrophils % (auto) 90.2 %; Platelet Count 199 K/uL (130-400); RDW Coefficient of Variation 14.2 % (11.5-14.5); RDW Standard Deviation 46.4 fL (36.4-46.3); Red Blood Count 2.89 M/uL (4.2-5.4); White Blood Count 13.92 K/uL (4.8-10.8)
[2021-07-13 06:26] LABS: BUN Creatinine Ratio 15.4 (10-20); Calcium 7.4 mg/dl (8.5-10.1); Est GFR (African American) 117.4 ml/min; Est GFR (Non-African American) 101.3 ml/min; Magnesium 2.1 mg/dl (1.7-2.4); Potassium 3.9 mmol/L (3.5-5.1)
--- NOTE | 2021-07-13 07:47 | CT Scan Report ---
ABDOMEN AND PELVIS CT WITHOUT CONTRAST CT DOSE: 325.14 mGy.cm HISTORY: Acute hematuria with pneumonia hematuria TECHNIQUE: Multiaxial CT images of the abdomen and pelvis were performed without contrast. A dose lo wering technique was utilized adhering to the principles of ALARA. COMPARISON STUDY: CTA chest of same day, CT abdomen and pelvis 07/02/2021 FINDINGS: The imaged inferior cardiac chambers are unremarkable. Trace pleural effusions with bibasil ar groundglass and consolidative opacities, improved from prior. Several of the consolidative densiti es demonstrate central cavitation.. Intralobular septal thickening also noted. No pneumatosis or pneumoperitoneum. Hepatosplenomegaly. Limited evaluation of the solid abdominal org ans without the use of IV contrast. Mild gallbladder wall thickening may be secondary to fluid overlo ad. No cholelithiasis. Unremarkable adrenal glands. There is contrast noted within the bilateral ekaterina l collecting systems. Severe atrophy with parenchymal thinning of the left kidney. Compensatory hyper trophy of the right kidney. Left-sided duplicated collecting system and ureters. No ureteral calculi or hydronephrosis. Unremarkable urinary bladder. Complex debris is noted within the vagina and endoce rvical canal. There is no abdominal aortic aneurysm. Nonspecific mildly enlarged bilateral inguinal c zuleima lymph nodes. No bowel obstruction. There is circumferential wall thickening of the rectum with perirectal strandin g. Trace abdominal pelvic ascites with anasarca. Nonvisualization of the appendix. No acute fracture. IMPRESSION: 1. Bibasilar consolidative opacities with nodular areas of cavitation again noted, mildly improved fr om comparison suggestive of septic emboli versus necrotic pneumonia. Please refer to the CTA chest [facility] of same day for additional findings. 2. Trace pleural effusions with trace abdominopelvic ascites and anasarca. 3. Severe atrophy of the left kidney redemonstrated. 4. No bowel obstruction. 5. Circumferential wall thickening of the rectum may be secondary to partial distention versus a nons pecific proctitis. 6. Additional findings as above. ACT 112: Negative or not required by law. The above report was generated using voice recognition software. It may contain grammatical, syntax o r spelling errors. Electronically signed by: Henok Frederick M.D. 07/13/2021 7:46 AM
[2021-07-13] MEDS ORDERED: LINEZOLID 600 MG/300 ML BAG IV SCH (08:00)
[2021-07-13] MEDS: NICOTINE 21 MG/24 HR TDSY TD SCH (08:36)
[2021-07-13 08:49] LABS: Partial Thromboplastin Ratio 1.4; Partial Thromboplastin Time 35.9 Seconds (21.0-31.0)
[2021-07-13] MEDS ORDERED: HEPARIN SOD (PORCINE) 1000 UNIT/ML IV ONE ×2 (09:45→16:30)
[2021-07-13] MEDS ORDERED: CONSULT PHARMACY STA (10:47)
[2021-07-13] MEDS ORDERED: SODIUM CHLORIDE 0.9% 1000ML 1,000 ML IV ONE (10:47)
--- NOTE | 2021-07-13 10:56 | Hospitalist Progress Note ---
Date of Service July 13, 2021 Assessment & Plan (1) Sepsis: Plan: Recently left AMA from [facility] after incomplete treatment of MRSA bacteremia and tricuspid endocarditis. She is a known IVDU and reports using heroin just prior to this admission. She appears septic and was started on fluid resuscitation and broad spectrum antibiotics. She is on Zosyn and Zyvox, however, will change Zyvox to Daptomycin per recent ID recommendations who saw her in [place]. A debulking surgery for vegetation was considered at the time. CT surgery at [facility] recommended monitoring vegetation response to medical therapy first prior to debulking the lesion. Specifically, the consultation note states to try and avoid surgical intervention and treat conservatively if possible as termination clerk results with surgical therapy fro this particular disease is dismal. Cont medical management. ID to see her again via telemedicine on Thursday. Cardiology following and we will continue to evaluate her response to therapy together. (2) Infective endocarditis of tricuspid valve: Plan: Plan as above. (3) Multifocal pneumonia: Plan: Possible septic emboli with progression-noted cavitary lesions now present on imaging. Possible infection overlying embolic phenomena. Cont broad abx coverage including Daptomycin. (4) Pulmonary cavitary lesion: Plan: Possibly worsening of septic emboli in setting of MRSA bacteremia. Pulmonology declined consult request. (5) Septic pulmonary embolism: Plan: as above. (6) Electrolyte abnormality: Plan: Hyponatremia, hypomagnesemia 2/2 illness. Cont to monitor with daily labs. (7) Heroin abuse: Plan: Addiction counseling to be offered when more alert. Recent use of heroin just prior to arrival. Opiate negative on drug screen, however, 6AM test not performed. Current hemodynamic instability may be from withdrawal. (8) Methamphetamine abuse: Plan: Monitor for withdrawal. Drug screen positive this admission. (9) Anemia: Plan: 2/2 illness with no acute blood loss noted. Cont to monitor, FOBT negative on admission. Cont heparin for now. (10) DVT prophylaxis: Plan: Heparin drip Full Code Dispo-guarded prognosis, PCU DO Natasha Lubin Hospitalist Admission and Anticipated Discharge Date Admission Date: July 12, 2021 Subjective 30 yo F with sepsis 2/2 endocarditis and recent IV drug abuse, also with known PE, possibly septic emboli Reports some side pain-no fall or bruising present, generalized, falling asleep so limited history available No abdominal pain, chest pain, normal urination without hematuria or dysuria present Fevers have subsided Recent use of heroin yesterday-diaphoretic, tachycardic OK with going to [facility] in transfer Review of Systems Review of Systems: All systems were reviewed and negative except as indicated above. Physical Exam Physical Exam: CONSTITUTIONAL: WNWD, vitals as above,ill-appearing, diaphoretic, somnolent. EYES: normal conjunctivae, no scleral icterus ENT: external ear and nose normal, MMM NECK: trachea midline RESPIRATORY: clear to auscultation bilaterally, no crackles, rales or wheezes, normal respiratory effort CARDIOVASCULAR: tachy rate and rhythm, S1 and 2 heard without murmurs, gallops or rubs, no JVD, no peripheral edema CHEST: inspection of chest was normal GASTROINTESTINAL: soft, nontender, ND, no guarding. No pain to palpation or ecchymosis on left lateral side where pain was reported. MUSCULOSKELETAL: generalized weakness but nonfocal and able to sit up independently, head is normocephalic and atraumatic, SKIN: warm and dry, no track rogers noted on what skin could be seen. NEUROLOGIC: CN 2-12 grossly intact, somnolent but able to awaken and no gross focal neurologic deficits. normal speech, no tremor PSYCHIATRIC: somnolent, falling asleep frequently in the conversation, able to awaken and is oriented to person, place and time. Results & Data Results & Data ([facility]) Vital Signs (Past 12 Hours) Vital Signs Temp Pulse Pulse Resp BP BP Pulse Ox 07/13/21 08:00 126 H 07/13/21 07:00 37.5 C 123 H 22 112/70 96 07/13/21 04:00 36.5 C 126 H 20 112/66 07/13/21 00:00 113 H 14 99/61 L 98 07/12/21 23:59 36.5 C 112 H 07/12/21 23:30 109 H 17 99 07/12/21 23:28 107 H 22 104/66 Laboratory Results Short CBC 07/12/21 07/13/21 07/13/21 Range/Units 16:58 00:24 05:40 WBC 11.21 H 13.92 H (4.8-10.8) K/uL Hgb 7.2 L 8.5 L 8.6 L (12.0-16.0) g/dL Hct 22.1 L 26.0 L 25.7 L (37-47) % Plt Count 244 199 (130-400) K/uL BMP 07/12/21 07/13/21 16:58 05:40 Sodium 132 L 136 Potassium 4.5 3.9 Chloride 100 107 Carbon Dioxide 24 22 BUN 21 12 Creatinine 0.96 0.78 Glucose 108 H 143 H Calcium 7.8 L 7.4 L Cardiac Enzymes 07/12/21 Range/Units 16:58 Total Creatine Kinase 27 (26-192) U/L Troponin I < 0.03 (0-0.04) ng/ml Liver Function 07/12/21 Range/Units 16:58 Total Bilirubin 0.4 (0.2-1.0) mg/dl AST 24 (13-39) U/L ALT 15 (7-52) U/L Alkaline Phosphatase 94 (34-104) U/L Albumin 2.5 L (3.4-5.0) gm/dl Urine 07/12/21 Range/Units 20:27 Urine Color Yellow Urine Appearance Cloudy A (Clear) Urine pH 5.5 (4.5-7.5) Ur Specific Leonard 1.033 H (1.000-1.030) Urine Protein 1+ H (Negative) Urine Glucose (UA) Negative (Negative) Diagnostic Findings Abdomen/Pelvis CT 07/12/21 22:[address] WITHOUT CONTRAST CT DOSE: 325.14 mGy.cm HISTORY: Acute hematuria with pneumonia hematuria TECHNIQUE: Multiaxial CT images of the abdomen and pelvis were performed without contrast. A dose lowering technique was utilized adhering to the principles of ALARA. COMPARISON STUDY: CTA chest of same day, CT abdomen and pelvis 07/02/2021 FINDINGS: The imaged inferior cardiac chambers are unremarkable. Trace pleural effusions with bibasilar groundglass and consolidative opacities, improved from prior. Several of the consolidative densities demonstrate central cavitation.. Intralobular septal thickening also noted. No pneumatosis or pneumoperitoneum. Hepatosplenomegaly. Limited evaluation of the solid abdominal organs without the use of IV contrast. Mild gallbladder wall thickening may be secondary to fluid overload. No cholelithiasis. Unremarkable adrenal glands. There is contrast noted within the bilateral renal collecting systems. Severe atrophy with parenchymal thinning of the left kidney. Compensatory hypertrophy of the right kidney. Left-sided duplicated collecting system and ureters. No ureteral calculi or hydronephrosis. Unremarkable urinary bladder. Complex debris is noted within the vagina and endocervical canal. There is no abdominal aortic aneurysm. Nonspecific mildly enlarged bilateral inguinal chain lymph nodes. No bowel obstruction. There is circumferential wall thickening of the rectum with perirectal stranding. Trace abdominal pelvic ascites with anasarca. Nonvisualization of the appendix. No acute fracture. IMPRESSION: 1. Bibasilar consolidative opacities with nodular areas of cavitation again noted, mildly improved from comparison suggestive of septic emboli versus necrotic pneumonia. Please refer to the CTA chest study of same day for additional findings. 2. Trace pleural effusions with trace abdominopelvic ascites and anasarca. 3. Severe atrophy of the left kidney redemonstrated. 4. No bowel obstruction. 5. Circumferential wall thickening of the rectum may be secondary to partial distention versus a nonspecific proctitis. 6. Additional findings as above. ACT 112: Negative or not required by law. The above report was generated using voice recognition software. It may contain grammatical, syntax or spelling errors. Electronically signed by: Henok Frederick M.D. 07/13/2021 7:46 AM Medications Administered Current Inpatient Medications Acetaminophen (Acetaminophen 325 Mg Tab) 650 mg PO Q4H PRN PRN Reason: Pain or Fever Stop: 08/11/21 21:55 Last Admin: 07/13/21 05:40 Dose: 650 mg Documented by: Lorazepam (Ativan) 1 mg in 2 mls @ 2 mls/min IV Q2H PRN PRN Reason: Anxiety/Agitation Stop: 08/11/21 19:18 Last Admin: 07/13/21 05:40 Dose: 2 mls/min Documented by: Piperacillin Sod/Tazobactam (Sod 3.375 gm/ Dextrose) 115 mls @ 28.75 mls/hr IV Q8H RIKKI; Protocol Stop: 07/19/21 19:19 Last Infusion: 07/13/21 08:33 Dose: Infused Documented by: Heparin Sodium/Dextrose (Heparin Sodium/Dextrose) 25,000 units in 500 mls @ 16 mls/hr IV .Q24H RIKKI; Protocol Stop: 08/12/21 01:29 Last Titration: 07/13/21 09:33 Dose: 800 units/hr, 16 mls/hr Documented by: Sodium Chloride (Nss 1000ml) 1,000 mls @ 999 mls/hr IV .Q1H1M ONE Stop: 07/13/21 11:47 Sodium Chloride (Nss 1000ml) 1,000 mls @ 100 mls/hr IV .Q10H RIKKI Stop: 08/12/21 10:59 Miscellaneous (Remove Nicoderm Patch) 1 ea N/A DAILY@0859 RIKKI Stop: 08/12/21 08:58 Last Admin: 07/13/21 08:36 Dose: 1 ea Documented by: Miscellaneous Information (Piperacill/Tazobac Consult Active) 1 ea N/A UD PRN PRN Reason: Consult Stop: 08/11/21 19:19 Miscellaneous Information (Consult Pharmacy) 1 ea N/A NOW STA Stop: 07/13/21 10:48 Nicotine (Nicotine 21 Mg/24 Hr Tdsy) 21 mg TD DAILY RIKKI Stop: 08/11/21 19:29 Last Admin: 07/13/21 08:36 Dose: 21 mg Documented by: Nitroglycerin (Nitroglycerin Sl 0.4 Mg/Tab Tab) 0.4 mg SL Q5M PRN PRN Reason: Chest Pain Stop: 08/11/21 21:55 Ondansetron HCl (Ondansetron Inj 2 Mg/Ml 2 Ml Vial) 4 mg IV Q6H PRN PRN Reason: Nausea Stop: 08/11/21 21:55 (1) Anemia Anemia type: unspecified type Qualified Code(s): D64.9 - Anemia, unspecified (2) Sepsis Sepsis acute organ dysfunction status: with acute organ dysfunction Sepsis type: methicillin resistant Staphylococcus aureus Severe sepsis acute organ dysfunction type: unspecified Severe sepsis shock status: with septic shock Qualified Code(s): A41.02 - Sepsis due to Methicillin resistant Staphylococcus aureus; R65.21 - Severe sepsis with septic shock
[2021-07-13] MEDS: SODIUM CHLORIDE 0.9% 1000ML 1,000 ML IV SCH ×2 (11:22→23:34)
--- NOTE | 2021-07-13 11:31 | Electrocardiogram Report ---
Test Reason : Blood Pressure : / mmHG Vent. Rate : 144 BPM Atrial Rate : 144 BPM P-R Int : 122 ms QRS Dur : 086 ms QT Int : 270 ms P-R-T Axes : 025 047 006 degrees QTc Int : 418 ms Sinus tachycardia Nonspecific ST abnormality Abnormal ECG When compared with ECG of 02-JUL-2021 21:56, ST no longer elevated in Inferior leads Nonspecific T wave abnormality now evident in Inferior leads T wave inversion no longer evident in Lateral leads Confirmed by Eder Poole ([id number]) on 07/13/2021 11:31:03 AM Referred By: REFERRED SELF Confirmed By:Eder Poole
--- NOTE | 2021-07-13 12:20 | Cardiology Consultation ---
Date of Consultation July 13, 2021 Assessment & Plan (1) Infective endocarditis of tricuspid valve: A CT angiogram had been performed at presentation last evening with findings of redemonstration of the previously noted pulmonary emboli, cavitary lung lesions. Patient with ongoing MRSA bacteremia, documented large tricuspid valve vegetation, septic pulmonary emboli. Echocardiogram performed today reviewed and compared to the images obtained at the time of the prior study dated 07/03/2021. Sinus tachycardia is now present, and the degree of tricuspid regurgitation has progressed from mild to moderate, mild pulmonary hypertension now present. As noted, patient had been seen by CT surgery, medical therapy recommended at that time, and at this point, would continue antibiotic therapy. Daptomycin has been recommended by infectious disease during recent stay at [facility]. Cautiously continue unfractioned heparin. Treat with anticoagulation less than ideal in the setting of endocarditis, however this is right-sided endocarditis without any left-sided lesions at least noted within the scope of the transthoracic echocardiogram resolution, and given CT findings, subjective chest pain and shortness of breath, cautious anticoagulation to be continued along with antibiotic therapy. Per review of the records from [facility], the plan there had been that if the patient worsens despite appropriate antibiotic therapy, percutaneous AngioVAC aspiration to debulk the tricuspid valve vegetation could be considered, she however has not had an appropriate trial of antibiotic therapy as of yet having eloped from the hospital. History of Present Illness Attending Physician: Delicia Kincaid, History of Present Illness Maritza Brown is a 30 year old female seen in cardiology consultation per the request of Dr Guzman for the evaluation of tricuspid valve endocarditis. The patient has a history of polysubstance dependence (IV heroin, methamphetamine and alcohol). She had initially presented to [facility] on 07/02/21 and was found to have methicillin-resistant staph aureus bacteremia on multiple blood cultures as well as urine culture and a transthoracic echocardiogram performed 07/03/2021 revealed a 1.8 x 2 cm large tricuspid valve vegetation on the right atrial aspect of the tricuspid valve, with extension down to the subvalvular apparatus. Mild tricuspid regurgitation was noted that time with preserved biventricular systolic function. CT of the chest that admission suggested pulmonary embolism as well as septic pulmonary emboli. The patient was treated with antibiotics IV heparin infusion and was transferred to [facility] on 07/03/2021 for tertiary care level assessment and had been seen in infectious disease, cardiology, and cardiothoracic surgery consultation during that stay. Per review of the cardiothoracic surgery consultation note dated 07/04/2021 mild tricuspid regurgitation was present at that time and ongoing medical therapy with IV antibiotics as well as addiction counseling was recommended with thoughts that if the vegetation did not respond to appropriate antimicrobial therapy percutaneous AngioVac therapy could be considered to debulk the lesion. Per review of progress notes, on 07/05/2021, during nursing rounds, the patient and all of her belongings were noted to have disappeared from her room, and per the follow-up physician progress note, the patient could not be found on the premises, and did not answer her cell phone calls. The patient presented again last evening via the emergency room with complaint of pleuritic chest pain, shortness of breath, fevers and chills. Repeat blood cultures obtained 07/12/2021 at 1719 are already growing gram-positive cocci consistent with ongoing MRSA bacteremia. During my assessment in ICU room 101, the patient was arousable, but lethargic. Should not provide any additional subjective information to add to the history. Allergies Allergy/AdvReac Type Severity Reaction Status Date / Time vancomycin Allergy Mild Hives Verified 07/12/21 16:49 Home Medications Medication Instructions Recorded Confirmed Type cefdinir 300 mg capsule 300 mg PO BID 07/12/21 07/12/21 History Patient History Medical History History of drug use No chronic diseases present Surgical History No significant past surgical history Family History Other No significant family history Social History Smoking Status: Current every day smoker Tobacco Type: Cigarettes Hx Alcohol Use: Yes Alcohol type: hard liquor Hx Substance Use: Yes Last Used Substance: Just Prior to Arrival Preferred Language: Latvian Communication Ability: Effective Business Intelligence Administrator Required: No Beliefs That Will Affect Care: None marital status: Current Living Situation: Spouse How many Children do You have: 0 Other Information That Helps Us Care for You: No Feels Safe at Home: Yes Assistive Devices: None Review of Systems Review of Systems: Unobtainable due to reduced consciousness Physical Exam Physical Exam: Temp Pulse Resp BP Pulse Ox 36.9 C 112 H 31 H 117/76 96 07/13/21 11:00 07/13/21 11:00 07/13/21 11:00 07/13/21 11:00 07/13/21 11:00 Constitutional: + ill appearing Respiratory: Decreased breath sounds the bases Cardiovascular: Rate/Rhythm: + tachycardic Heart Sounds: no murmur Extremities: no edema Gastrointestinal (Abdomen): normal bowel sounds, soft, nontender, no hepatosplenomegaly Neurologic: Lethargic, no focal deficits Results & Data ([facility]) Vital Signs (Past 12 Hours) Vital Signs Temp Pulse Pulse Resp BP BP Pulse Ox 07/13/21 11:00 36.9 C 112 H 31 H 117/76 96 07/13/21 08:00 126 H 07/13/21 07:00 37.5 C 123 H 22 112/70 96 07/13/21 04:00 36.5 C 126 H 20 112/66 Laboratory Results Cardiac Enzymes 07/12/21 Range/Units 16:58 AST 24 (13-39) U/L Troponin I < 0.03 (0-0.04) ng/ml Coagulation 07/12/21 07/13/21 07/13/21 Range/Units 16:58 00:24 08:25 PT 13.5 H (9.0-12.0) Seconds APTT 31.9 H 36.0 H 35.9 H (21.0-31.0) Seconds CBC 07/12/21 07/13/21 07/13/21 Range/Units 16:58 00:24 05:40 WBC 11.21 H 13.92 H (4.8-10.8) K/uL RBC 2.45 L 2.89 L (4.2-5.4) M/uL Hgb 7.2 L 8.5 L 8.6 L (12.0-16.0) g/dL Hct 22.1 L 26.0 L 25.7 L (37-47) % Plt Count 244 199 (130-400) K/uL Neut # (Auto) 10.17 H 12.54 H (1.4-6.5) K/uL Lymph # (Auto) 0.53 L 0.70 L (1.2-3.4) K/uL [place] # (Auto) 0.37 0.45 (0.11-0.59) K/uL Eos # (Auto) 0.04 0.04 (0-0.5) K/uL Baso # (Auto) 0.01 0.02 (0-0.2) K/uL Comprehensive Metabolic Panel 07/12/21 07/13/21 Range/Units 16:58 05:40 Sodium 132 L 136 (136-145) mmol/L Potassium 4.5 3.9 (3.5-5.1) mmol/L Chloride 100 107 (98-107) mmol/L Carbon Dioxide 24 22 (21-32) mmol/L BUN 21 12 (6-23) mg/dl Creatinine 0.96 0.78 (0.6-1.2) mg/dl Glucose 108 H 143 H (70-99(Fasting)) mg/dl Calcium 7.8 L 7.4 L (8.5-10.1) mg/dl AST 24 (13-39) U/L ALT 15 (7-52) U/L Alkaline Phosphatase 94 (34-104) U/L Total Protein 7.1 (6.0-8.3) gm/dl Albumin 2.5 L (3.4-5.0) gm/dl Intake and Output 07/12/21 07/13/21 07/13/21 22:59 06:59 14:59 Intake Total 2310 / 4825 2515 / 4825 1523.733 / 1523.733 Balance 2310 / 4825 2515 / 4825 1523.733 / 1523.733 Intake: IV 1999 3815 1815 / 3815 1523.733 / 1523.733 Heparin Sodium/Dextrose 25,000 0 / 500 500 / 500 108.733 / 108.733 units In 500 ml @ 700 UNITS/HR 14 mls/hr IV .Q24H [facility] Rx#: [id number] Linezolid 600 mg In 300 ml @ 300 / 300 200 mls/hr IV Q12H [facility] Rx#: [id number] Magnesium Sulfate / D5w 1 gm In 200 / 200 100 ml @ 50 mls/hr IV Q2H [facility] Rx#:[id number] Piperacillin/Tazobactam 3.375 115 / 115 115 / 115 gm In Dextrose 5% 100 ml @ 28. 75 mls/hr IV Q8H [facility] Rx#: [id number] Sodium Chloride 0.9% 1000ML 1, 2000 / 3000 1000 / 3000 1000 / 1000 000 ml @ 100 mls/hr IV .Q10H [facility] Rx#:[id number] Oral 700 / 700 Intake (Blood Product) Amt 310 / 310 Packed Cells, Leukoreduced 310 / 310 Unit [id number] Other: # Unmeasured Voids 2 Weight 61 kg 61 kg Weight Measurement Method Built in [facility] Built in [facility] Diagnostic Findings Performed 07/12/2021 and reviewed independently revealed sinus tachycardia 144 bpm mild nonspecific repolarization changes, no evidence of conduction system disease. Summary transthoracic echocardiogram performed today 07/13/2021 and reviewed independently: Sinus tachycardia at 110-115 bpm was present during the echocardiogram. There is a 1.8 cm x 1.2 cm mobile echodensity on the right atrial aspect of the tricuspid valve , with appearance consistent with vegetation. There is moderate tricuspid regurgitation. Mild pulmonary hypertension is present. The estimated pulmonary systolic pressure=41 mm Hg. There is a trace amount of focal loculated pericardial fluid adjacent to the right ventricular apex. There are no echocardiographic indications of cardiac tamponade.
--- NOTE | 2021-07-13 15:19 | Communication Note ---
Date of Service: July 13, 2021 Patient reassessed. More alert. , [place], at bedside. Discussed recommendations that she needs to remain in the hospital for antibiotic therapy.
[2021-07-13 16:03] LABS: Partial Thromboplastin Ratio 1.4; Partial Thromboplastin Time 36.2 Seconds (21.0-31.0)
[2021-07-13] MEDS ORDERED: HEPARIN IV BOLUS 2,000 UNITS in SYRINGE 0 ML IV ONE (17:00)
[2021-07-13] MEDS: DAPTOmycin 475 MG in SYRINGE 0 ML IV SCH (17:13)
[2021-07-13 23:29] LABS: Partial Thromboplastin Ratio 1.4
[2021-07-14] MEDS ORDERED: HEPARIN IV BOLUS 2,000 UNITS in SYRINGE 0 ML IV ONE (01:00)
[2021-07-14] MEDS: PIPERACILLIN/TAZOBACTAM 3.375 GM in DEXTROSE 5% 100 ML IV SCH ×2 (03:51→11:54)
[2021-07-14] MEDS: LORazepam 1 MG/2 ML VIAL IV PRN (03:51)
[2021-07-14] MEDS: HEPARIN SODIUM/DEXTROSE 25,000 UNITS/500 ML BAG IV SCH (04:22)
[2021-07-14] MEDS: ACETAMINOPHEN 325 MG TAB PO PRN (06:19)
[2021-07-14 07:32] LABS: Partial Thromboplastin Ratio 1.6; Partial Thromboplastin Time 41.7 Seconds (21.0-31.0)
[2021-07-14] MEDS: SODIUM CHLORIDE 0.9% 1000ML 1,000 ML IV SCH ×2 (08:01→15:57)
[2021-07-14] MEDS: NICOTINE 21 MG/24 HR TDSY TD SCH (08:02)
[2021-07-14 09:38] LABS: Albumin Globulin Ratio 0.5 (0.9-2); BUN Creatinine Ratio 8.1 (10-20); Bilirubin,Total 0.3 mg/dl (0.2-1.0); Calcium 7.2 mg/dl (8.5-10.1); Creatinine Clr Calc Pharmacy 99.1 ml/min; Est GFR (African American) 125.1 ml/min; Globulin 3.9 gm/dl (2.5-4.0); Magnesium 1.8 mg/dl (1.7-2.4); Phosphorus 2.2 mg/dl (2.5-4.9); Potassium 3.5 mmol/L (3.5-5.1); Total Protein 5.9 gm/dl (6.0-8.3)
[2021-07-14 09:43] LABS: Basophils # (auto) 0.02 K/uL (0-0.2); Basophils % (auto) 0.2 %; Eosinophils # (auto) 0.12 K/uL (0-0.5); Hematocrit (blood only) 22.6 % (37-47); Hemoglobin 7.6 g/dL (12.0-16.0); Immature Granulocytes # (auto) 0.05 K/uL (0.00-0.02); Immature Granulocytes % (auto) 0.4 %; Lymphocytes # (auto) 1.66 K/uL (1.2-3.4); Lymphocytes % (auto) 13.3 %; Mean Corpuscular Hemoglobin 29.7 pg (25-34); Mean Corpuscular Hgb Conc 33.6 g/dL (32-36); Mean Corpuscular Volume 88.3 fL (80-100); Mean Platelet Volume 9.6 fL (7.4-10.4); Monocytes # (auto) 0.74 K/uL (0.11-0.59); Monocytes % (auto) 5.9 %; Neutrophils # (auto) 9.86 K/uL (1.4-6.5); Neutrophils % (auto) 79.2 %; Platelet Count 213 K/uL (130-400); RDW Coefficient of Variation 14.4 % (11.5-14.5); RDW Standard Deviation 46.8 fL (36.4-46.3); Red Blood Count 2.56 M/uL (4.2-5.4); White Blood Count 12.45 K/uL (4.8-10.8)
[2021-07-14 10:29] LABS: RBC Morphology Unremarkable
--- NOTE | 2021-07-14 10:37 | Hospitalist Progress Note ---
Date of Service July 14, 2021 Assessment & Plan (1) Sepsis: Plan: Recently left AMA from [facility] after incomplete treatment of MRSA bacteremia and tricuspid endocarditis. She is a known IVDU and reports using heroin just prior to this admission. She appears septic and was started on fluid resuscitation and broad spectrum antibiotics. Improved clinically, and from a hemodynamic standpoint today-restarted NSS as lactate was elevated to 2.3 . She is on Zosyn and Zyvox, however, will change Zyvox to Daptomycin per recent ID recommendations who saw her in [place]. A debulking surgery for vegetation was considered at the time. CT surgery at [facility] recommended monitoring vegetation response to medical therapy first prior to debulking the lesion. Specifically, the consultation note states to try and avoid surgical interventio n and treat conservatively if possible as longterm results with surgical therapy fro this particular disease is dismal. Cont medical management. ID to see her again via telemedicine on Thursday. Cardiology following and we will continue to evaluate her response to therapy together. (2) Infective endocarditis of tricuspid valve: Plan: Plan as above. (3) Multifocal pneumonia: Plan: Possible septic emboli with progression-noted cavitary lesions now present on imaging. Possible infection overlying embolic phenomena. Cont broad abx coverage including Daptomycin. (4) Pulmonary cavitary lesion: Plan: Possibly worsening of septic emboli in setting of MRSA bacteremia. Pulmonology declined consult request. (5) Septic pulmonary embolism: Plan: as above. (6) Electrolyte abnormality: Plan: Hyponatremia, hypomagnesemia 2/2 illness. Cont to monitor with daily labs. (7) Heroin abuse: Plan: Addiction counseling to be offered when more alert. Recent use of heroin just prior to arrival. Opiate negative on drug screen, however, 6AM test not performed. Current hemodynamic instability may be from withdrawal. (8) Methamphetamine abuse: Plan: Monitor for withdrawal. Drug screen positive this admission. (9) Anemia: Plan: 2/2 illness with no acute blood loss noted. Cont to monitor, FOBT negative on admission. Cont heparin for now. (10) DVT prophylaxis: Plan: Heparin drip Full Code Dispo-guarded prognosis, PCU. Discussed case with her by phone as noted above. DO [facility] Hospitalist Admission and Anticipated Discharge Date Admission Date: July 12, 2021 Subjective 30 yo F with sepsis 2/2 endocarditis and recent IV drug abuse, also with known PE, possibly septic emboli overnight persistent fever, Tm 39.4C heart rate has improved left flank pain still present--rib fracture after syncopal episode two weeks drugs were found concealed in a phony cell phone-personal effects were confiscated by security personnel and remained locked diarrhea overnight tolerating PO Spoke with this morning and ensured he had a clear understanding that she has a guarded prognosis and could from this. I explained that she has bacteria in her blood coming from an infected heart valve that has also seeded bacteria in her lungs. She has clots and bacteria in her lungs that have become like small abscesses. This is all from IV drug use and the bacteria that was found in her urine on 06/30 was likely because her blood cultures were positive with the same pathogen. He admitted to helping her elope from [facility] and reports "I didn't understand how sick she was but I do understand now. I understand that she could diet from this." He reports to me that she is "stubborn" and adamant about smoking cigarettes. He states that nicotine patches won't be enough for her. I explained that she will have to have her IV removed if she leaves the floor for any reason and that it is not safe for her do do that. He verbalized understanding but then again pressed the issue so that she "doesn't hit the ceiling because she is very stubborn." Her also states that she was on multiple medications until two months ago including Buspar, Seroquel, Remeron. She was also taking suboxone until two months ago. He reports there were no financial or other obstacles to her taking her "meds" just that she is choosing not to take them. He did offer there was a two week period of homelessness recently and now they are settled in a new apartment. Review of Systems Review of Systems: All systems were reviewed and negative except as indicated above. Physical Exam Physical Exam: CONSTITUTIONAL: WNWD, vitals as above,ill-appearing, NAD EYES: normal conjunctivae, no scleral icterus ENT: external ear and nose normal, MMM NECK: trachea midline RESPIRATORY: clear to auscultation bilaterally, no crackles, rales or wheezes, normal respiratory effort CARDIOVASCULAR: reg rate and rhythm, S1 and 2 heard without murmurs, gallops or rubs, no JVD, no peripheral edema CHEST: inspection of chest was normal GASTROINTESTINAL: soft, nontender, ND, no guarding. MUSCULOSKELETAL: generalized weakness but nonfocal and able to sit up independently, head is normocephalic and atraumatic, SKIN: warm and dry, no track rogers noted on what skin could be seen. NEUROLOGIC: CN 2-12 grossly intact, somnolent but able to awaken and no gross focal neurologic deficits. normal speech, no tremor PSYCHIATRIC: awake, alert, oriented to person, place and time. Memory intact. Results & Data Results & Data ([facility]) Vital Signs (Past 12 Hours) Vital Signs Temp Pulse Pulse Resp BP Pulse Ox 07/13/21 23:59 133 H 07/13/21 23:06 39.4 C H 133 H 24 127/73 95 Laboratory Results Short CBC 07/14/21 Range/Units 09:12 WBC 12.45 H (4.8-10.8) K/uL Hgb 7.6 L (12.0-16.0) g/dL Hct 22.6 L (37-47) % Plt Count 213 (130-400) K/uL BMP 07/14/21 09:12 Sodium 138 Potassium 3.5 Chloride 111 H Carbon Dioxide 22 BUN 6 Creatinine 0.74 Glucose 138 H Calcium 7.2 L Liver Function 07/14/21 Range/Units 09:12 Total Bilirubin 0.3 (0.2-1.0) mg/dl AST 24 (13-39) U/L ALT 18 (7-52) U/L Alkaline Phosphatase 80 (34-104) U/L Albumin 2.0 L (3.4-5.0) gm/dl Medications Administered Current Inpatient Medications Acetaminophen (Acetaminophen 325 Mg Tab) 650 mg PO Q4H PRN PRN Reason: Pain or Fever Stop: 08/11/21 21:55 Last Admin: 07/14/21 06:19 Dose: 650 mg Documented by: Lorazepam (Ativan) 1 mg in 2 mls @ 2 mls/min IV Q2H PRN PRN Reason: Anxiety/Agitation Stop: 08/11/21 19:18 Last Admin: 07/14/21 03:51 Dose: 2 mls/min Documented by: Piperacillin Sod/Tazobactam (Sod 3.375 gm/ Dextrose) 115 mls @ 28.75 mls/hr IV Q8H [facility]; Protocol Stop: 07/19/21 19:19 Last Infusion: 07/14/21 07:34 Dose: Infused Documented by: Heparin Sodium/Dextrose (Heparin Sodium/Dextrose) 25,000 units in 500 mls @ 21 mls/hr IV .[id number] [facility]; Protocol Stop: 08/12/21 01:29 Last Titration: 07/14/21 07:35 Dose: 1,050 units/hr, 21 mls/hr Documented by: Sodium Chloride (Nss 1000ml) 1,000 mls @ 100 mls/hr IV .Q10H [facility] Stop: 08/12/21 10:59 Last Admin: 07/14/21 08:01 Dose: 100 mls/hr Documented by: Daptomycin 475 mg/ Syringe 9.5 mls @ 4.75 mls/min IV Q24H [facility]; Protocol Stop: 08/24/21 17:59 Last Admin: 07/13/21 17:13 Dose: 4.75 mls/min Documented by: Loperamide HCl (Loperamide Hcl 2 Mg Cap) 2 mg PO UD PRN PRN Reason: diarrhea Stop: 08/13/21 10:39 Miscellaneous (Remove Nicoderm Patch) 1 ea N/A DAILY@0859 [facility] Stop: 08/12/21 08:58 Last Admin: 07/14/21 08:01 Dose: 1 ea Documented by: Miscellaneous Information (Piperacill/Tazobac Consult Active) 1 ea N/A UD PRN PRN Reason: Consult Stop: 08/11/21 19:19 Miscellaneous Information (Daptomycin Consult Active) 1 ea N/A UD PRN PRN Reason: Consult Stop: 08/12/21 10:59 Nicotine (Nicotine 21 Mg/24 Hr Tdsy) 21 mg TD DAILY [facility] Stop: 08/11/21 19:29 Last Admin: 07/14/21 08:02 Dose: 21 mg Documented by: Nitroglycerin (Nitroglycerin Sl 0.4 Mg/Tab Tab) 0.4 mg SL Q5M PRN PRN Reason: Chest Pain Stop: 08/11/21 21:55 Ondansetron HCl (Ondansetron Inj 2 Mg/Ml 2 Ml Vial) 4 mg IV Q6H PRN PRN Reason: Nausea Stop: 08/11/21 21:55 Potassium Chloride (Potassium Chloride 20 Meq/15 Ml Udc) 20 meq PO BID [facility] Stop: 07/14/21 21:01 (1) Anemia Anemia type: unspecified type Qualified Code(s): D64.9 - Anemia, unspecified (2) Sepsis Sepsis acute organ dysfunction status: with acute organ dysfunction Sepsis type: methicillin resistant Staphylococcus aureus Severe sepsis acute organ dysfunction type: unspecified Severe sepsis shock status: with septic shock Qualified Code(s): A41.02 - Sepsis due to Methicillin resistant Staphylococcus aureus; R65.21 - Severe sepsis with septic shock
[2021-07-14] MEDS ORDERED: LOPERAMIDE HCL 2 MG CAP PO PRN (10:40)
--- NOTE | 2021-07-14 10:46 | Cardiology Progress Note ---
Date of Service July 14, 2021 Assessment & Plan (1) Infective endocarditis of tricuspid valve: Plan: A CT angiogram had been performed at presentation 07/12/2021 with findings of redemonstration of the previously noted pulmonary emboli, cavitary lung lesions. Patient with ongoing MRSA bacteremia, documented large tricuspid valve vegetation, septic pulmonary emboli. Repeat cultures obtained today 07/14/2021 pending. Sinus tachycardia is now present, and the degree of tricuspid regurgitation has progressed from mild to moderate, mild pulmonary hypertension now present. As noted, patient had been seen by CT surgery, medical therapy recommended at that time, and at this point, would continue antibiotic therapy. Daptomycin has been recommended by infectious disease during recent stay at [facility]. Cautiously continue unfractioned heparin. Treat with anticoagulation less than ideal in the setting of endocarditis, however this is right-sided endocarditis without any left-sided lesions at least noted within the scope of the transthoracic echocardiogram resolution, and given CT findings, subjective chest pain and shortness of breath, cautious anticoagulation to be continued along with antibiotic therapy. Per review of the records from [facility], the plan there had been that if the patient worsens despite appropriate antibiotic therapy, percutaneous AngioVAC aspiration to debulk the tricuspid valve vegetation could be considered, she however has not had an appropriate trial of antibiotic therapy as of yet having eloped from the hospital. CPK being monitored on daptomycin. HIV screen obtained 07/03/21 at [facility] was negative. ID consult had recommended screening for viral hepatitis given h/o IV drug use, but do not believe this was drawn here or at [facility] , will coordinate with hospitalist serve. I spoke to patient and in the afternoon on 07/13/21. If pt is requires another transfer for tertiary level care, they prefer for her to go to [facility]. DVT prophylaxis: remains on UF heparin infusion. Admission and Anticipated Discharge Date Admission Date: July 12, 2021 Subjective Patient seen in cardiology follow-up of tricuspid valve endocarditis, staph aureus bacteremia. Patient somnolent this morning, most recent dose of lorazepam administered for withdrawal prophylaxis was at 3:51 AM. Most recent temperature recorded from last night at 2359 was 39.4 C, repeat pending. Review of Systems Review of Systems: Unobtainable due to reduced consciousness Physical Exam Physical Exam: Temp Pulse Resp BP Pulse Ox 39.4 C H 133 H 24 127/73 95 01/29/22 23:06 07/13/21 23:59 07/13/21 23:06 07/13/21 23:06 07/13/21 23:06 Constitutional: + ill appearing Respiratory: Auscultation: + diminished lung sounds (Decreased breath sounds at the bases) Cardiovascular: Rate/Rhythm: regular rate and + tachycardic Heart Sounds: no murmur Gastrointestinal (Abdomen): normal bowel sounds, soft, nontender, no hepatosplenomegaly Neurologic: Lethargic. Results & Data ([facility]) Vital Signs (Past 12 Hours) Vital Signs Temp Pulse Pulse Resp BP Pulse Ox 07/13/21 23:59 133 H 07/13/21 23:06 39.4 C H 133 H 24 127/73 95 Laboratory Results Cardiac Enzymes 07/14/21 Range/Units 09:12 AST 24 (13-39) U/L Coagulation 07/13/21 07/13/21 07/14/21 Range/Units 15:47 23:02 07:03 APTT 36.2 H 36.0 H 41.7 H (21.0-31.0) Seconds CBC 07/14/21 Range/Units 09:12 WBC 12.45 H (4.8-10.8) K/uL RBC 2.56 L (4.2-5.4) M/uL Hgb 7.6 L (12.0-16.0) g/dL Hct 22.6 L (37-47) % Plt Count 213 (130-400) K/uL Neut # (Auto) 9.86 H (1.4-6.5) K/uL Lymph # (Auto) 1.66 (1.2-3.4) K/uL [place] # (Auto) 0.74 H (0.11-0.59) K/uL Eos # (Auto) 0.12 (0-0.5) K/uL Baso # (Auto) 0.02 (0-0.2) K/uL Comprehensive Metabolic Panel 07/14/21 Range/Units 09:12 Sodium 138 (136-145) mmol/L Potassium 3.5 (3.5-5.1) mmol/L Chloride 111 H (98-107) mmol/L Carbon Dioxide 22 (21-32) mmol/L BUN 6 (6-23) mg/dl Creatinine 0.74 (0.6-1.2) mg/dl Glucose 138 H (70-99(Fasting)) mg/dl Calcium 7.2 L (8.5-10.1) mg/dl AST 24 (13-39) U/L ALT 18 (7-52) U/L Alkaline Phosphatase 80 (34-104) U/L Total Protein 5.9 L (6.0-8.3) gm/dl Albumin 2.0 L (3.4-5.0) gm/dl Intake and Output 07/13/21 07/14/21 07/14/21 22:59 06:59 14:59 Intake Total 1189.800 / 5288.500 574.967 / 5288.500 1024.333 / 1024.333 Balance 1189.800 / 5288.500 574.967 / 5288.500 1024.333 / 1024.333 Intake: IV 1189.800 / 4048.500 334.967 / 4048.500 1024.333 / 1024.333 Heparin Sodium/Dextrose 25,000 111.467 / 440.167 219.967 / 440.167 64.333 / 64.333 units In 500 ml @ 1,000 UNITS/ HR 20 mls/hr IV .Q24H [facility] Rx#: [id number] Piperacillin/Tazobactam 3.375 115 / 345 115 / 345 115 / 115 gm In Dextrose 5% 100 ml @ 28. 75 mls/hr IV Q8H [facility] Rx#: [id number] Sodium Chloride 0.9% 1000ML 1, 963.333 / 963.333 845 / 845 000 ml @ 100 mls/hr IV .Q10H [facility] Rx#:[id number] Oral 240 / 1240 Other: # Unmeasured Voids 2 1 Weight 64.4 kg Weight Measurement Method Built in [facility]
[2021-07-14] MEDS: POTASSIUM CHLORIDE 20 MEQ/15 ML UDC PO SCH ×2 (11:52→22:02)
[2021-07-14] MEDS: LORazepam 0.5 MG TAB PO PRN (11:53)
[2021-07-14] MEDS: POT PHOSPHATE MONOBASIC W/ SOD TAB PO SCH ×3 (11:54→22:03)
[2021-07-14 14:50] LABS: Partial Thromboplastin Ratio 1.4; Partial Thromboplastin Time 37.2 Seconds (21.0-31.0)
[2021-07-14] MEDS ORDERED: HEPARIN SOD (PORCINE) 1000 UNIT/ML IV ONE (16:40)
[2021-07-14] MEDS: DAPTOmycin 475 MG in SYRINGE 0 ML IV SCH (17:06)
[2021-07-14] MEDS ORDERED: COUGH DROP (SUGAR FREE) LOZ 24 LOZ/1 BOX BUCCAL ONE (20:32)
[2021-07-14 23:17] LABS: Partial Thromboplastin Ratio 1.5; Partial Thromboplastin Time 39.9 Seconds (21.0-31.0)
[2021-07-15] MEDS: SODIUM CHLORIDE 0.9% 1000ML 1,000 ML IV SCH ×2 (01:47→14:32)
[2021-07-15] MEDS: ACETAMINOPHEN 325 MG TAB PO PRN ×2 (03:11→19:57)
[2021-07-15] MEDS: LORazepam 0.5 MG TAB PO PRN ×3 (03:12→19:53)
[2021-07-15] MEDS: HEPARIN SODIUM/DEXTROSE 25,000 UNITS/500 ML BAG IV SCH (03:43)
[2021-07-15 08:25] LABS: Hematocrit (blood only) 22.5 % (37-47); Hemoglobin 7.3 g/dL (12.0-16.0); Mean Corpuscular Hemoglobin 28.9 pg (25-34); Mean Corpuscular Hgb Conc 32.4 g/dL (32-36); Mean Corpuscular Volume 88.9 fL (80-100); Mean Platelet Volume 9.4 fL (7.4-10.4); Platelet Count 224 K/uL (130-400); RDW Coefficient of Variation 14.5 % (11.5-14.5); RDW Standard Deviation 47.5 fL (36.4-46.3); Red Blood Count 2.53 M/uL (4.2-5.4); White Blood Count 12.84 K/uL (4.8-10.8)
[2021-07-15 08:37] LABS: Partial Thromboplastin Ratio 1.4; Partial Thromboplastin Time 35.6 Seconds (21.0-31.0)
[2021-07-15 08:50] LABS: BUN Creatinine Ratio 6.3 (10-20); Calcium 7.5 mg/dl (8.5-10.1); Creatinine Clr Calc Pharmacy 92.8 ml/min; Est GFR (African American) 115.6 ml/min; Est GFR (Non-African American) 99.8 ml/min; Phosphorus 3.3 mg/dl (2.5-4.9); Potassium 3.7 mmol/L (3.5-5.1)
[2021-07-15] MEDS: NICOTINE 21 MG/24 HR TDSY TD SCH (10:06)
[2021-07-15] MEDS: POT PHOSPHATE MONOBASIC W/ SOD TAB PO SCH ×4 (10:06→19:52)
[2021-07-15] MEDS ORDERED: HEPARIN SOD (PORCINE) 1000 UNIT/ML IV ONE (10:15)
[2021-07-15 11:21] LABS: Amphetamine Urine, Confirm 522 ng/mL (<250); Methamphetamine, Ur Confirm 3920 ng/mL (<250)
--- NOTE | 2021-07-15 11:52 | Cardiology Progress Note ---
Date of Service July 15, 2021 Assessment & Plan (1) Infective endocarditis of tricuspid valve: Plan: A CT angiogram had been performed at presentation 07/12/2021 with findings of redemonstration of the previously noted pulmonary emboli, cavitary lung lesions. Patient with ongoing MRSA bacteremia, documented large tricuspid valve vegetation, septic pulmonary emboli. Repeat cultures obtained 07/14/2021, already showing gram-positive cocci in clusters Sinus tachycardia is now present, and the degree of tricuspid regurgitation has progressed from mild to moderate, mild pulmonary hypertension now present. As noted, patient had been seen by CT surgery, medical therapy recommended at that time, and at this point, would continue antibiotic therapy. Daptomycin has been recommended by infectious disease during recent stay at [facility]. Cautiously continue unfractioned heparin. Treat with anticoagulation less than ideal in the setting of endocarditis, however this is right-sided endocarditis without any left-sided lesions at least noted within the scope of the transthoracic echocardiogram resolution, and given CT findings, subjective chest pain and shortness of breath, cautious anticoagulation to be continued along with antibiotic therapy. Per review of the records from [facility], the plan there had been that if the patient worsens despite appropriate antibiotic therapy, percutaneous AngioVAC aspiration to debulk the tricuspid valve vegetation could be considered, she however has not had an appropriate trial of antibiotic therapy as of yet having eloped from the hospital. CPK being monitored on daptomycin. HIV screen obtained 07/03/21 at [facility] was negative. ID consult had recommended screening for viral hepatitis given h/o IV drug use, but do not believe this was drawn here or at [facility] , will coordinate with hospitalist serve. DVT prophylaxis: remains on UF heparin infusion. Admission and Anticipated Discharge Date Admission Date: July 12, 2021 Subjective Patient seen and examined, chart reviewed and case discussed with nursing. Patient somnolent this morning but arousable. Denies any improvement in breathing. Telemetry reviewed: Sinus rhythm/sinus tachycardia Review of Systems Review of Systems: All systems reviewed & are unremarkable except as noted in HPI & below Physical Exam Physical Exam: General: Awake, alert and oriented x 3. No acute distress. HEENT: Normocephalic, atraumatic. Pupils equal, round and reactive to light and accommodation. Extraocular muscles are intact. Anicteric sclera. Moist mucous membranes. Neck: No JVD. No bruit. Cardiovascular: Regular. Positive S-4. Normal S-1 and S-2. No S-3. 3/6 holosystolic ejection murmur, 5th intercostal space, mid-clavicular line without radiation. No rubs. Pulmonary: Clear to auscultation bilaterally. No rales, rhonchi, or wheezing. Abdomen: Bowel sounds x 4, soft. No rebound, guarding or tenderness. No organomegaly. Extremities: No clubbing, cyanosis or edema. +2 pedal pulses bilaterally. Skin: Warm and dry. Results & Data ([facility]) Vital Signs (Past 12 Hours) Vital Signs Temp Pulse Pulse Resp BP Pulse Ox 07/15/21 10:00 37.7 C H 97 H 22 114/74 96 07/15/21 04:01 38.8 C H 125 H 23 128/77 96 07/14/21 23:59 115 H
--- NOTE | 2021-07-15 14:15 | Hospitalist Progress Note ---
Date of Service July 15, 2021 Assessment & Plan (1) Sepsis: Plan: Recently left AMA from [facility] after incomplete treatment of MRSA bacteremia and tricuspid endocarditis. A debulking surgery for vegetation was considered at the time. CT surgery at [facility] recommended monitoring vegetation response to medical therapy first prior to debulking the lesion. Specifically, the consultation note states to try and avoid surgical intervention and treat conservatively if possible as buttermaker continuous churn results with surgical therapy for this particular disease is dismal. Cont medical management. She is a known IVDU and reports using heroin just prior to this admission. She appears septic and was started on fluid resuscitation and broad spectrum antibiotics. 07/14 lactate 2.3, still tachy and febrile, more fluid given overnight. 07/15 continues on Daptomycin per recent ID recommendations who saw her in [place]. ID reconsulted via telemedicine and recommends transition to ceftaroline and consideration of ADELA to rule out worsening vegetation given multiple recent incomplete treatments. Cont every other day blood cultures until negative. Cont IV abx for 6 weeks total. (2) Infective endocarditis of tricuspid valve: Plan: Plan as above. (3) Multifocal pneumonia: Plan: Possible septic emboli with progression-noted cavitary lesions now present on imaging. Possible infection overlying embolic phenomena. Cont broad abx coverage including Daptomycin. (4) Pulmonary cavitary lesion: Plan: Possibly worsening of septic emboli in setting of MRSA bacteremia. Pulmonology declined consult request. (5) Septic pulmonary embolism: Plan: Cont antibiotic therapy as above. Lost IV site for many hours on 07/15. Switched from heparin to Lovenox. (6) Electrolyte abnormality: Plan: Hyponatremia, hypomagnesemia 2/2 illness. Cont to monitor with daily labs. (7) Heroin abuse: Plan: Addiction counseling to be offered when more alert. Recent use of heroin just prior to arrival. Opiate negative on drug screen, however, 6AM test not performed. Undergoing withdrawal with ongoing diarrhea, although this is better and she is clinically improved today. (8) Methamphetamine abuse: (9) Anemia: Plan: 2/2 illness with no acute blood loss noted. FOBT negative on admission and she continues on anticoagulation at this time. Anemia workup including normal retic count, LDH and pending haptoglobin and peripheral smear. She has iron deficiency. (10) DVT prophylaxis: Plan: Heparin drip Full Code Dispo-cont PCU monitoring. US guided line placed today successfully. DO [facility] Hospitalist Admission and Anticipated Discharge Date Admission Date: July 12, 2021 Subjective 30 yo F with sepsis 2/2 endocarditis and recent IV drug abuse, also with known PE, possibly septic emboli Tm overnight 39.4 with improvement in fever curve. still with tachycardia but has now developed a mild nonproductive cough denies pain ambulating to potty without much issue denies SOB still with some diarrhea that is improved Review of Systems Review of Systems: All systems were reviewed and negative except as indicated above. Physical Exam Physical Exam: CONSTITUTIONAL: WNWD, vitals as above, appears brighter today, NAD, smiling EYES: normal conjunctivae, no scleral icterus ENT: external ear and nose normal, MMM NECK: trachea midline RESPIRATORY: clear to auscultation bilaterally, no crackles, rales or wheezes, normal respiratory effort CARDIOVASCULAR: reg rate and rhythm, S1 and 2 heard without murmurs, gallops or rubs, no JVD, no peripheral edema CHEST: inspection of chest was normal GASTROINTESTINAL: soft, nontender, ND, no guarding. MUSCULOSKELETAL: generalized weakness but nonfocal and able to sit up independently, head is normocephalic and atraumatic, SKIN: warm and dry NEUROLOGIC: CN 2-12 grossly intact, normal speech, no tremor PSYCHIATRIC: awake, alert, oriented to person, place and time. Memory intact. Language normal. Results & Data Results & Data ([facility]) Vital Signs (Past 12 Hours) Vital Signs Temp Pulse Resp BP Pulse Ox 07/15/21 10:00 37.7 C H 97 H 22 114/74 96 07/15/21 04:01 38.8 C H 125 H 23 128/77 96 Laboratory Results Short CBC 07/15/21 Range/Units 08:15 WBC 12.84 H (4.8-10.8) K/uL Hgb 7.3 L (12.0-16.0) g/dL Hct 22.5 L (37-47) % Plt Count 224 (130-400) K/uL BMP 07/15/21 08:15 Sodium 138 Potassium 3.7 Chloride 110 H Carbon Dioxide 22 BUN 5 L Creatinine 0.79 Glucose 110 H Calcium 7.5 L Medications Administered Current Inpatient Medications Acetaminophen (Acetaminophen 325 Mg Tab) 650 mg PO Q4H PRN PRN Reason: Pain or Fever Stop: 08/11/21 21:55 Last Admin: 07/15/21 03:11 Dose: 650 mg Documented by: Heparin Sodium/Dextrose (Heparin Sodium/Dextrose) 25,000 units in 500 mls @ 0 mls/hr IV .Q0M [facility]; Protocol Stop: 08/12/21 01:29 Last Titration: 07/15/21 11:32 Dose: 0 units/hr, 0 mls/hr Documented by: Daptomycin 475 mg/ Syringe 9.5 mls @ 4.75 mls/min IV Q24H [facility]; Protocol Stop: 08/24/21 17:59 Last Admin: 07/14/21 17:06 Dose: 4.75 mls/min Documented by: Sodium Chloride (Nss 1000ml) 1,000 mls @ 100 mls/hr IV .Q10H [facility] Stop: 08/13/21 15:44 Last Admin: 07/15/21 01:47 Dose: 100 mls/hr Documented by: Loperamide HCl (Loperamide Hcl 2 Mg Cap) 2 mg PO UD PRN PRN Reason: diarrhea Stop: 08/13/21 10:39 Last Admin: 07/14/21 11:53 Dose: 2 mg Documented by: Lorazepam (Lorazepam 0.5 Mg Tab) 0.5 mg PO Q8H PRN PRN Reason: Anxiety Stop: 08/13/21 11:24 Last Admin: 07/15/21 11:53 Dose: 0.5 mg Documented by: Miscellaneous (Remove Nicoderm Patch) 1 ea N/A DAILY@0859 [facility] Stop: 08/12/21 08:58 Last Admin: 07/15/21 10:06 Dose: 1 ea Documented by: Miscellaneous Information (Daptomycin Consult Active) 1 ea N/A UD PRN PRN Reason: Consult Stop: 08/12/21 10:59 Nicotine (Nicotine 21 Mg/24 Hr Tdsy) 21 mg TD DAILY [facility] Stop: 08/11/21 19:29 Last Admin: 07/15/21 10:06 Dose: 21 mg Documented by: Nitroglycerin (Nitroglycerin Sl 0.4 Mg/Tab Tab) 0.4 mg SL Q5M PRN PRN Reason: Chest Pain Stop: 08/11/21 21:55 Ondansetron HCl (Ondansetron Inj 2 Mg/Ml 2 Ml Vial) 4 mg IV Q6H PRN PRN Reason: Nausea Stop: 08/11/21 21:55 Potassium Phosphate (Pot Phosphate Monobasic W/ Sod Tab) 1 tab PO QID RIKKI Stop: 07/16/21 12:59 Last Admin: 07/15/21 10:06 Dose: 1 tab Documented by: (1) Anemia Anemia type: unspecified type Qualified Code(s): D64.9 - Anemia, unspecified (2) Sepsis Sepsis acute organ dysfunction status: with acute organ dysfunction Sepsis type: methicillin resistant Staphylococcus aureus Severe sepsis acute organ dysfunction type: unspecified Severe sepsis shock status: with septic shock Qualified Code(s): A41.02 - Sepsis due to Methicillin resistant Staphylococcus aureus; R65.21 - Severe sepsis with septic shock
[2021-07-15 16:04] LABS: Reticulocyte % 0.5 % (0.5-2.0); Reticulocytes # < 0.02 10^6/uL (0.02-0.10)
[2021-07-15] MEDS: ENOXAPARIN INJ 60 MG/0.6 ML SYR SQ SCH ×2 (16:31→23:35)
[2021-07-15 18:02] LABS: Ferritin 474.6 ng/ml (8-388)
[2021-07-15] MEDS: DAPTOmycin 475 MG in SYRINGE 0 ML IV SCH (18:25)
[2021-07-15] MEDS: CEFTAROLINE FOSAMIL ACETATE 600 MG in SODIUM CHLORIDE 0.9% 250 ML IV SCH (19:51)
[2021-07-16] MEDS: CEFTAROLINE FOSAMIL ACETATE 600 MG in SODIUM CHLORIDE 0.9% 250 ML IV SCH ×3 (02:51→20:25)
[2021-07-16] MEDS: ACETAMINOPHEN 325 MG TAB PO PRN ×2 (03:01→08:19)
[2021-07-16] MEDS: LORazepam 0.5 MG TAB PO PRN ×3 (03:54→21:20)
[2021-07-16 07:32] LABS: Hematocrit (blood only) 25.4 % (37-47); Hemoglobin 8.4 g/dL (12.0-16.0); Mean Corpuscular Hemoglobin 29.2 pg (25-34); Mean Corpuscular Hgb Conc 33.1 g/dL (32-36); Mean Corpuscular Volume 88.2 fL (80-100); Mean Platelet Volume 9.6 fL (7.4-10.4); Platelet Count 270 K/uL (130-400); RDW Coefficient of Variation 14.4 % (11.5-14.5); RDW Standard Deviation 46.6 fL (36.4-46.3); Red Blood Count 2.88 M/uL (4.2-5.4); White Blood Count 12.01 K/uL (4.8-10.8)
--- NOTE | 2021-07-16 08:13 | XRay Report ---
XR chest 1V portable HISTORY: cough, pna, fluid resuscitation COMPARISON: Chest 07/02/2021. FINDINGS: No pneumothorax. Trace right pleural effusion persists. The heart is normal in size. Scatte red nodular airspace opacities persist. These are better appreciated on the prior chest CTA. IMPRESSION: No change in the scattered nodular airspace opacities. ACT 112: Negative or not required by law. Electronically signed by: Sae Sanon M.D. 07/16/2021 8:12 AM
[2021-07-16] MEDS: POT PHOSPHATE MONOBASIC W/ SOD TAB PO SCH (08:20)
[2021-07-16] MEDS: NICOTINE 21 MG/24 HR TDSY TD SCH (08:20)
[2021-07-16 10:22] LABS: BUN Creatinine Ratio 5.1 (10-20); Calcium 8.1 mg/dl (8.5-10.1); Creatinine Clr Calc Pharmacy 92.8 ml/min; Est GFR (African American) 115.6 ml/min; Est GFR (Non-African American) 99.8 ml/min; Magnesium 1.7 mg/dl (1.7-2.4); Phosphorus 3.8 mg/dl (2.5-4.9); Potassium 3.9 mmol/L (3.5-5.1)
--- NOTE | 2021-07-16 10:35 | Hospitalist Progress Note ---
Date of Service July 16, 2021 Assessment & Plan (1) Sepsis: Plan: Recently left AMA from [facility] after incomplete treatment of MRSA bacteremia and tricuspid endocarditis. A debulking surgery for vegetation was considered at the time. CT surgery at [facility] recommended monitoring vegetation response to medical therapy first prior to debulking the lesion. Specifically, the consultation note states to try and avoid surgical intervention and treat conservatively if possible as chcf results with surgical therapy for this particular disease is dismal. Cont medical management. She is a known IVDU and reports using heroin just prior to this admission. She appears septic and was started on fluid resuscitation and broad spectrum antibiotics. 07/14 lactate 2.3, still tachy and febrile, more fluid given overnight. 07/15 continues on Daptomycin per recent ID recommendations who saw her in [place]. ID reconsulted via telemedicine and recommends transition to ceftaroline and consideration of ADELA to rule out worsening vegetation given multiple recent incomplete treatments. Cont every other day blood cultures until negative. Cont IV abx for 6 weeks total. 07/16: doing well today, afebrile today but 39.3 overnight. Continues on ceftaroline. Discussed ADELA with cardiology, but will hold off at this time and cont conservative antibiotic management. (2) Infective endocarditis of tricuspid valve: Plan: Plan as above. (3) Multifocal pneumonia: Plan: Possible septic emboli with progression-noted cavitary lesions now present on imaging. Possible infection overlying embolic phenomena. Cont abx as outlined above. (4) Pulmonary cavitary lesion: Plan: Possibly worsening of septic emboli in setting of MRSA bacteremia. Pulmonology declined consult request. (5) Septic pulmonary embolism: Plan: Cont antibiotic therapy as above. Lost IV site for many hours on 07/15. Switched from heparin to Lovenox. 07/16: continues on full dose Lovenox (6) Electrolyte abnormality: Plan: Hyponatremia, hypomagnesemia 2/2 illness. Cont to monitor with daily labs. (7) Heroin abuse: Plan: Addiction counseling to be offered when more alert. Recent use of heroin just prior to arrival. Withdrawal from drugs is resolved with only slight residual diarrhea. (8) Methamphetamine abuse: (9) Anemia: Plan: 2/2 illness with no acute blood loss noted. FOBT negative on admission and she continues on anticoagulation at this time. Anemia workup including normal retic count, LDH and pending haptoglobin and peripheral smear. She has iron deficiency. Would start supplemental iron at discharge. (10) DVT prophylaxis: Plan: Heparin drip Full Code Dispo-cont PCU monitoring. US guided line in place. was updated at the bedside. Uncertain dispo-patient and wish to return home after medical clearance to finish her course of IV antibiotics. Declined option of rehab, although patient is in trouble with the law and may have some additional restrictions as a result. Appreciate case management assistance. Delicia Kincaid [facility] and Anticipated Discharge Date Admission Date: July 12, 2021 Subjective 30 yo F with sepsis 2/2 endocarditis and recent IV drug abuse, also with known PE, possibly septic emboli ambulating without issue feels well slight cough, nonproductive Tm 39.3 overnight Review of Systems Review of Systems: All systems were reviewed and negative except as indicated above. Physical Exam Physical Exam: CONSTITUTIONAL: WNWD, vitals as above, NAD EYES: normal conjunctivae, no scleral icterus ENT: external ear and nose normal, MMM NECK: trachea midline RESPIRATORY: clear to auscultation bilaterally, no crackles, rales or wheezes, normal respiratory effort CARDIOVASCULAR: reg rate and rhythm, S1 and 2 heard without murmurs, gallops or rubs, no JVD, no peripheral edema CHEST: inspection of chest was normal GASTROINTESTINAL: soft, nontender, ND, no guarding. MUSCULOSKELETAL: generalized weakness but nonfocal and able to sit up independently, head is normocephalic and atraumatic, SKIN: warm and dry NEUROLOGIC: CN 2-12 grossly intact, normal speech, no tremor PSYCHIATRIC: awake, alert, oriented to person, place and time. Memory intact. Language normal. Results & Data Results & Data ([facility]) Vital Signs (Past 12 Hours) Vital Signs Temp Pulse Pulse Resp BP BP Pulse Ox 07/16/21 08:12 37.8 C H 96 H 25 H 123/76 100 07/16/21 08:00 104 H 07/16/21 02:58 38.2 C H 102 H 121/79 98 07/15/21 23:32 37.1 C 103 H 16 124/73 99 07/15/21 23:00 97 H Laboratory Results Short CBC 07/16/21 Range/Units 07:10 WBC 12.01 H (4.8-10.8) K/uL Hgb 8.4 L (12.0-16.0) g/dL Hct 25.4 L (37-47) % Plt Count 270 (130-400) K/uL BMP 07/16/21 07:10 Sodium 137 Potassium 3.9 Chloride 108 H Carbon Dioxide 22 BUN 4 L Creatinine 0.79 Glucose 106 H Calcium 8.1 L Diagnostic Findings Chest X-Ray 07/16/21 07:00 XR chest 1V portable HISTORY: cough, pna, fluid resuscitation COMPARISON: Chest 07/02/2021. FINDINGS: No pneumothorax. Trace right pleural effusion persists. The heart is normal in size. Scattered nodular airspace opacities persist. These are better appreciated on the prior chest CTA. IMPRESSION: No change in the scattered nodular airspace opacities. ACT 112: Negative or not required by law. Electronically signed by: Sae Sanon M.D. 07/16/2021 8:12 AM Medications Administered Current Inpatient Medications Acetaminophen (Acetaminophen 325 Mg Tab) 650 mg PO Q4H PRN PRN Reason: Pain or Fever Stop: 08/11/21 21:55 Last Admin: 07/16/21 08:19 Dose: 650 mg Documented by: Enoxaparin Sodium (Enoxaparin Inj 60 Mg/0.6 Ml Syr) 60 mg SQ Q12 [facility] Stop: 08/14/21 15:29 Last Admin: 07/15/21 23:35 Dose: 60 mg Documented by: Ceftaroline Fosamil 600 mg/ (Sodium Chloride) 270 mls @ 250 mls/hr IV Q8H [facility]; Protocol Stop: 08/26/21 18:59 Last Infusion: 07/16/21 04:03 Dose: Infused Documented by: Loperamide HCl (Loperamide Hcl 2 Mg Cap) 2 mg PO UD PRN PRN Reason: diarrhea Stop: 08/13/21 10:39 Last Admin: 07/14/21 11:53 Dose: 2 mg Documented by: Lorazepam (Lorazepam 0.5 Mg Tab) 0.5 mg PO Q8H PRN PRN Reason: Anxiety Stop: 08/13/21 11:24 Last Admin: 07/16/21 03:54 Dose: 0.5 mg Documented by: Miscellaneous (Remove Nicoderm Patch) 1 ea N/A DAILY@0859 [facility] Stop: 08/12/21 08:58 Last Admin: 07/16/21 08:19 Dose: 1 ea Documented by: Nicotine (Nicotine 21 Mg/24 Hr Tdsy) 21 mg TD DAILY [facility] Stop: 08/11/21 19:29 Last Admin: 07/16/21 08:20 Dose: 21 mg Documented by: Nitroglycerin (Nitroglycerin Sl 0.4 Mg/Tab Tab) 0.4 mg SL Q5M PRN PRN Reason: Chest Pain Stop: 08/11/21 21:55 Ondansetron HCl (Ondansetron Inj 2 Mg/Ml 2 Ml Vial) 4 mg IV Q6H PRN PRN Reason: Nausea Stop: 08/11/21 21:55 Potassium Phosphate (Pot Phosphate Monobasic W/ Sod Tab) 1 tab PO QID [facility] Stop: 07/16/21 12:59 Last Admin: 07/16/21 08:20 Dose: 1 tab Documented by: (1) Anemia Anemia type: unspecified type Qualified Code(s): D64.9 - Anemia, unspecified (2) Sepsis Sepsis acute organ dysfunction status: with acute organ dysfunction Sepsis type: methicillin resistant Staphylococcus aureus Severe sepsis acute organ dysfunction type: unspecified Severe sepsis shock status: with septic shock Qualified Code(s): A41.02 - Sepsis due to Methicillin resistant Staphylococcus aureus; R65.21 - Severe sepsis with septic shock
[2021-07-16] MEDS: ENOXAPARIN INJ 60 MG/0.6 ML SYR SQ SCH ×2 (11:59→20:26)
--- NOTE | 2021-07-16 12:15 | Cardiology Progress Note ---
Date of Service July 16, 2021 Assessment & Plan (1) Infective endocarditis of tricuspid valve: Plan: A CT angiogram had been performed at presentation 07/12/2021 with findings of redemonstration of the previously noted pulmonary emboli, cavitary lung lesions. Patient with ongoing MRSA bacteremia, documented large tricuspid valve vegetation, septic pulmonary emboli. Repeat cultures obtained 07/14/2021, already showing gram-positive cocci in clusters Sinus tachycardia is now present, and the degree of tricuspid regurgitation has progressed from mild to moderate, mild pulmonary hypertension now present. As noted, patient had been seen by CT surgery, medical therapy recommended at that time, and at this point, would continue antibiotic therapy. Daptomycin has been recommended by infectious disease during recent stay at [facility]. Cautiously continue unfractioned heparin. Treat with anticoagulation less than ideal in the setting of endocarditis, however this is right-sided endocarditis without any left-sided lesions at least noted within the scope of the transthoracic echocardiogram resolution, and given CT findings, subjective chest pain and shortness of breath, cautious anticoagulation to be continued along with antibiotic therapy. Per review of the records from [facility], the plan there had been that if the patient worsens despite appropriate antibiotic therapy, percutaneous AngioVAC aspiration to debulk the tricuspid valve vegetation could be considered, she however has not had an appropriate trial of antibiotic therapy as of yet having eloped from the hospital. I do not see any role for ADELA at this time. We will repeat transthoracic echo to evaluate for any progression of her endocarditis. Although, overall prognosis remains very poor especially in light of still persistent blood cultures despite antibiotic treatment. DVT prophylaxis: remains on UF heparin infusion. Admission and Anticipated Discharge Date Admission Date: July 12, 2021 Subjective Patient seen and examined, chart reviewed. Patient lethargic but more responsive today. States that she feels well just tired. Denies chest pain, shortness of breath or palpitations. Telemetry reviewed: Sinus rhythm/sinus tachycardia without arrhythmias Review of Systems Review of Systems: All systems reviewed & are unremarkable except as noted in HPI & below Physical Exam Physical Exam: General: Awake, alert and oriented x 3. No acute distress. HEENT: Normocephalic, atraumatic. Pupils equal, round and reactive to light and accommodation. Extraocular muscles are intact. Anicteric sclera. Moist mucous membranes. Neck: No JVD. No bruit. Cardiovascular: Regular. Positive S-4. Normal S-1 and S-2. No S-3. 3/6 holosystolic ejection murmur, 5th intercostal space, mid-clavicular line without radiation. No rubs. Pulmonary: Clear to auscultation bilaterally. No rales, rhonchi, or wheezing. Abdomen: Bowel sounds x 4, soft. No rebound, guarding or tenderness. No organomegaly. Extremities: No clubbing, cyanosis or edema. +2 pedal pulses bilaterally. Skin: Warm and dry. Results & Data ([facility]) Vital Signs (Past 12 Hours) Vital Signs Temp Pulse Pulse Resp BP BP Pulse Ox 07/16/21 12:02 36.7 C 102 H 24 121/80 100 07/16/21 08:12 37.8 C H 96 H 25 H 123/76 100 07/16/21 08:00 104 H 07/16/21 02:58 38.2 C H 102 H 121/79 98
[2021-07-17] MEDS: CEFTAROLINE FOSAMIL ACETATE 600 MG in SODIUM CHLORIDE 0.9% 250 ML IV SCH ×2 (04:35→12:40)
[2021-07-17] MEDS: ACETAMINOPHEN 325 MG TAB PO PRN (04:35)
[2021-07-17 06:02] LABS: Hematocrit (blood only) 23.2 % (37-47); Hemoglobin 7.7 g/dL (12.0-16.0); Mean Corpuscular Hemoglobin 29.2 pg (25-34); Mean Corpuscular Hgb Conc 33.2 g/dL (32-36); Mean Corpuscular Volume 87.9 fL (80-100); Mean Platelet Volume 9.5 fL (7.4-10.4); Platelet Count 315 K/uL (130-400); RDW Coefficient of Variation 14.4 % (11.5-14.5); RDW Standard Deviation 45.9 fL (36.4-46.3); Red Blood Count 2.64 M/uL (4.2-5.4)
[2021-07-17 06:26] LABS: Calcium 7.8 mg/dl (8.5-10.1); Creatinine Clr Calc Pharmacy 91.7 ml/min; Est GFR (African American) 113.9 ml/min; Est GFR (Non-African American) 98.2 ml/min; Magnesium 1.6 mg/dl (1.7-2.4); Phosphorus 2.7 mg/dl (2.5-4.9); Potassium 3.8 mmol/L (3.5-5.1)
[2021-07-17] MEDS: LORazepam 0.5 MG TAB PO PRN ×2 (06:43→12:57)
[2021-07-17] MEDS: NICOTINE 21 MG/24 HR TDSY TD SCH (08:45)
[2021-07-17] MEDS: ENOXAPARIN INJ 60 MG/0.6 ML SYR SQ SCH (08:45)
--- NOTE | 2021-07-17 13:17 | Cardiology Progress Note ---
Date of Service July 17, 2021 Assessment & Plan (1) Infective endocarditis of tricuspid valve: Plan: A CT angiogram had been performed at presentation 07/12/2021 with findings of redemonstration of the previously noted pulmonary emboli, cavitary lung lesions. Patient with ongoing MRSA bacteremia, documented large tricuspid valve vegetation, septic pulmonary emboli. Repeat cultures obtained 07/14/2021, already showing gram-positive cocci in clusters Sinus tachycardia is now present, and the degree of tricuspid regurgitation has progressed from mild to moderate, mild pulmonary hypertension now present. As noted, patient had been seen by CT surgery, medical therapy recommended at that time, and at this point, would continue antibiotic therapy. Daptomycin has been recommended by infectious disease during recent stay at [facility]. Cautiously continue unfractioned heparin. Treat with anticoagulation less than ideal in the setting of endocarditis, however this is right-sided endocarditis without any left-sided lesions at least noted within the scope of the transthoracic echocardiogram resolution, and given CT findings, subjective chest pain and shortness of breath, cautious anticoagulation to be continued along with antibiotic therapy. Per review of the records from [facility], the plan there had been that if the patient worsens despite appropriate antibiotic therapy, percutaneous AngioVAC aspiration to debulk the tricuspid valve vegetation could be considered, she however has not had an appropriate trial of antibiotic therapy as of yet having eloped from the hospital. I do not see any role for ADELA at this time. Repeat 2D echocardiogram shows no change in tricuspid valve mass or tricuspid regurgitation. No sign of valvular abscess. DVT prophylaxis: remains on UF heparin infusion. Admission and Anticipated Discharge Date Admission Date: July 12, 2021 Subjective Patient seen and examined, chart reviewed. Still with shortness of breath and worsening cough. Telemetry reviewed: Normal sinus rhythm/sinus tachycardia Review of Systems Review of Systems: All systems reviewed & are unremarkable except as noted in HPI & below Physical Exam Physical Exam: General: Awake, alert and oriented x 3. No acute distress. HEENT: Normocephalic, atraumatic. Pupils equal, round and reactive to light and accommodation. Extraocular muscles are intact. Anicteric sclera. Moist mucous membranes. Neck: No JVD. No bruit. Cardiovascular: Regular. Positive S-4. Normal S-1 and S-2. No S-3. 3/6 holosystolic ejection murmur, 5th intercostal space, mid-clavicular line without radiation. No rubs. Pulmonary: Clear to auscultation bilaterally. No rales, rhonchi, or wheezing. Abdomen: Bowel sounds x 4, soft. No rebound, guarding or tenderness. No organomegaly. Extremities: No clubbing, cyanosis or edema. +2 pedal pulses bilaterally. Skin: Warm and dry. Results & Data ([facility]) Vital Signs (Past 12 Hours) Vital Signs Temp Pulse Pulse Resp BP BP Pulse Ox 07/17/21 13:00 36.9 C 91 H 22 121/74 96 07/17/21 08:54 37.1 C 94 H 26 H 108/64 96 07/17/21 04:42 37.4 C 103 H 23 123/74
--- NOTE | 2021-07-17 14:37 | Hospitalist Progress Note ---
Date of Service July 17, 2021 Assessment & Plan (1) Sepsis: Plan: Recently left AMA from [facility] after incomplete treatment of MRSA bacteremia and tricuspid endocarditis. A debulking surgery for vegetation was considered at the time. CT surgery at [facility] recommended monitoring vegetation response to medical therapy first prior to debulking the lesion. Specifically, the consultation note states to try and avoid surgical intervention and treat conservatively if possible as exterminator results with surgical therapy for this particular disease is dismal. Cont medical management. She is a known IVDU and reports using heroin just prior to this admission. She appears septic and was started on fluid resuscitation and broad spectrum antibiotics. Sepsis present on admission with fever, leukocytosis and tachycardia Remains afebrile (2) Infective endocarditis of tricuspid valve: Plan: Persistently bacteremic. Last blood cultures from yesterday positive continue Ceftaroline (switched from Daptomycin for pulmonary coverage as well) Will repeat blood cultures again tomorrow and every other day until cleared Appreciate Cardiology input (3) Multifocal pneumonia: Plan: Possible septic emboli with progression-noted cavitary lesions now present on imaging. Possible infection overlying embolic phenomena. Cont abx as outlined above. (4) Pulmonary cavitary lesion: Plan: Possibly worsening of septic emboli in setting of MRSA bacteremia. Pulmonology declined consult request. (5) Septic pulmonary embolism: Plan: Cont antibiotic therapy as above. Lost IV site for many hours on 07/15. Switched from heparin to Lovenox. 07/16: continues on full dose Lovenox (6) Electrolyte abnormality: Plan: Hyponatremia, hypomagnesemia 2/2 illness. Cont to monitor with daily labs. (7) Heroin abuse: Plan: Addiction counseling to be offered when more alert. Recent use of heroin just prior to arrival. Withdrawal from drugs is resolved with only slight residual diarrhea. Patient does not appear interested in drug rehab options, found to have drugs in her belongings while here With her history of IV heroin use, would not recommend home antibiotic use. She will need SNF placement for jail IV antibiotics but I doubt she will agree to this (8) Methamphetamine abuse: (9) Anemia: Plan: 2/2 illness with no acute blood loss noted. FOBT negative on admission and she continues on anticoagulation at this time. Anemia workup including normal retic count, LDH and haptoglobin and peripheral smear. - She has iron deficiency. Would start supplemental iron at discharge. -check B12 and folate levels with AM labs (10) DVT prophylaxis: Plan: Heparin drip Full Code Dispo-cont PCU monitoring. US guided line in place. was updated at the bedside. Uncertain dispo-patient and wish to return home after medical clearance to finish her course of IV antibiotics. However, with her active IV heroin use, she is not a good candidate for home IV infusions. Will ask for CM input Admission and Anticipated Discharge Date Admission Date: July 12, 2021 Subjective Denies fevers, chills. Anxious to return home Physical Exam Physical Exam: Appears older than stated age, thin, unkempt Neck: supple Respiratory: breathing comfortably on room air, no wheezing/rhonchi/raes Cardiovascular: sinus, loud systolic murmur left lower sternal border (consistent MR) Gastrointestinal (Abdomen): soft, non tender Musculoskeletal: no edema Neurologic: awake, alert, spontaneously moving extremities Genitourinary: anxious Results & Data Results & Data ([facility]) Vital Signs (Past 12 Hours) Vital Signs Temp Pulse Pulse Resp BP BP Pulse Ox 07/17/21 13:00 36.9 C 91 H 22 121/74 96 07/17/21 08:54 37.1 C 94 H 26 H 108/64 96 07/17/21 04:42 37.4 C 103 H 23 123/74 (1) Sepsis Sepsis acute organ dysfunction status: with acute organ dysfunction Sepsis type: methicillin resistant Staphylococcus aureus Severe sepsis acute organ dysfunction type: unspecified Severe sepsis shock status: with septic shock Qualified Code(s): A41.02 - Sepsis due to Methicillin resistant Staphylococcus aureus; R65.21 - Severe sepsis with septic shock (2) Anemia Anemia type: unspecified type Qualified Code(s): D64.9 - Anemia, unspecified
--- NOTE | 2021-07-17 18:02 | Discharge Summary ---
Date of Service July 17, 2021 Admission HPI Per Admitting Provider Per H&P "This is a 30-year-old female with past medical history significant for heroin abuse, methamphetamine abuse, MRSA bacteremia, tobacco abuse disorder, endocarditis of tricuspid valve, presents with drug abuse and endocarditis. The patient was admitted here in the hospital on 07/03/2021 with sepsis, thought to be pneumonia. Workup showed that she is having tricuspid valve endocarditis and blood cultures grew MRSA bacteremia. At that time, cardiology recommended transfer to tertiary care for CT surgery evaluation secondary to endocarditis with septic emboli.She was started on vancomycin and she developed hives to the vancomycin and she was given daptomycin here and also received Zosyn. She was transferred to [place] on the same day on 07/03/2021 and patient signed out AMA on 07/05/2021. There, she received initially Zyvox, but was again seen by ID and they recommended daptomycin. She also had withdrawal symptoms with heroin and thought also of alcohol and after giving Ativan, she was fine. She was also given IV heparin for subsegmental PE, her PE was thought to be possibly most likely septic emboli.CT surgery was planning to do AngioVac therapy to debulk the lesion based on how she responds to medical therapy, but as the nursing staff were doing rounds, found the patient left the room and had taken her belongings with her. The patient states she was very anxious and her was not able to get there and that is why she signed out AMA and it seems to be she went to [facility] several days ago, but there, they took long time in the ER and she left the place. Today at 11:00,am, her found her in semiconscious state and called the EMS and brought her here. The patient says that she takes iv heroin regularly and metamphetamine once in a while. Says she is addicted to iheroin.. She states she drinks alcohol once every week. She states that she can drink a gallon of alcohol in a month? but not every day. She smokes 1 pack of cigarettes every day. She has some runny nose, some mild cough, feeling hot and cold sweating. Denies any chest pain. She says she has some shortness of breath with exertion, but she can ambulate okay. Climbing steps makes her short of breath. Denies any nausea or vomiting, no abdominal pain, no diarrhea or constipation. Denies any blood in stool or black stool. She said she noticed some blood in the urine while she was in [place]. After that, she did not notice it. Today morning, she had some slight bleeding from her nose, but it is stopped now. She has some swelling in the legs when she got discharged from [place]. Her appetite is okay. She is hungry, she wants to eat something now. Her blood pressure is low in the ER in the 80s and tachycardic, saturating okay on room air. It seems to be she received 2 doses of COVID vaccine several months ago, she thinks in the summer, but she did not receive any booster." Principal Diagnosis Tricuspid Valve MRSA endocarditis Septic Pulmonary emboli Multifocal Pneumonia Sepsis, present on admission IV heroine use Methamphetamine use Pancytopenia, present on admission Left Against Medical Advice Discharge Exam Please refer to Progress note dated 07/17/2021 Discharge Data Allergies Allergy/AdvReac Type Severity Reaction Status Date / Time vancomycin Allergy Mild Hives Verified 07/12/21 16:49 Consultations 07/12/21 19:08 ED Decision to Admit Stat 07/12/21 21:56 Consult Infectious Diseases Routine 07/13/21 08:00 Consult Cardiology Routine Ordered Studies 07/12/21 16:42 CT angio chest PE protocol Stat 07/12/21 22:21 CT abd pelvis wo con Urgent Total Time Total Time Spent Total Time Spent (In Minutes): 35 Discharge Plan Discharge Items Patient Disposition: Against Medical Advice Reason For Visit: INFECTION Activity: Resume your previous activity Non-emergency contact: Primary Care Provider Follow-up/Referrals: PCP,NO [Primary Care Provider] - Pending Studies at Discharge: No Stand-Alone Forms: [employer] [facility] [employer], Smoking Cessation Medications and DC Order Prescriptions: No Action cefdinir 300 mg capsule 300 mg PO BID RF: 0 Discharge Orders: Left Against Medical Advice (Routine); Ordered 07/17/21 Ordered By: Ethan Bernal Admission Data Admit Date/Time: 07/12/21 19:17 Attending Provider: Ethan Bernal Admit Provider: Naga Guzman Primary Care Provider: PCP,NO Other Providers: Naga Guzman ; Steve Palafox ; Dewayne Duran ; Sotero Watt I. ; Jose Arcos II ; Nery Haynes ; Olivier Reyna ; Clifton Alfaro ; Colt Carrillo ; Jesus Jackson ; Jay Carrero ; Juan Luis Cadet ; Alexander Ya ; Olivier rCuz ; Michelle Collado ; Francisca Vernon ; Salina Lerma ; Micah Lincoln ; Delicia Kincaid
--- NOTE | 2021-07-17 18:09 | Discharge Summary ---
Date of Service July 17, 2021 Admission HPI Per Admitting Provider Per H&P "This is a 30-year-old female with past medical history significant for heroin abuse, methamphetamine abuse, MRSA bacteremia, tobacco abuse disorder, endocarditis of tricuspid valve, presents with drug abuse and endocarditis. The patient was admitted here in the hospital on 07/03/2021 with sepsis, thought to be pneumonia. Workup showed that she is having tricuspid valve endocarditis and blood cultures grew MRSA bacteremia. At that time, cardiology recommended transfer to tertiary care for CT surgery evaluation secondary to endocarditis with septic emboli.She was started on vancomycin and she developed hives to the vancomycin and she was given daptomycin here and also received Zosyn. She was transferred to [place] on the same day on 07/03/2021 and patient signed out AMA on 07/05/2021. There, she received initially Zyvox, but was again seen by ID and they recommended daptomycin. She also had withdrawal symptoms with heroin and thought also of alcohol and after giving Ativan, she was fine. She was also given IV heparin for subsegmental PE, her PE was thought to be possibly most likely septic emboli.CT surgery was planning to do AngioVac therapy to debulk the lesion based on how she responds to medical therapy, but as the nursing staff were doing rounds, found the patient left the room and had taken her belongings with her. The patient states she was very anxious and her was not able to get there and that is why she signed out AMA and it seems to be she went to [facility] several days ago, but there, they took long time in the ER and she left the place. Today at 11:00,am, her found her in semiconscious state and called the EMS and brought her here. The patient says that she takes iv heroin regularly and metamphetamine once in a while. Says she is addicted to iheroin.. She states she drinks alcohol once every week. She states that she can drink a gallon of alcohol in a month? but not every day. She smokes 1 pack of cigarettes every day. She has some runny nose, some mild cough, feeling hot and cold sweating. Denies any chest pain. She says she has some shortness of breath with exertion, but she can ambulate okay. Climbing steps makes her short of breath. Denies any nausea or vomiting, no abdominal pain, no diarrhea or constipation. Denies any blood in stool or black stool. She said she noticed some blood in the urine while she was in [place]. After that, she did not notice it. Today morning, she had some slight bleeding from her nose, but it is stopped now. She has some swelling in the legs when she got discharged from [place]. Her appetite is okay. She is hungry, she wants to eat something now. Her blood pressure is low in the ER in the 80s and tachycardic, saturating okay on room air. It seems to be she received 2 doses of COVID vaccine several months ago, she thinks in the summer, but she did not receive any booster." Principal Diagnosis Triscupid Valve Endocarditis Pancytopenia IV heroine use Left Against medical Advice Sepsis, present on admission Discharge Exam Please see physical exam from my progress note dated 07/17/2021. Discharge Data Allergies Allergy/AdvReac Type Severity Reaction Status Date / Time vancomycin Allergy Mild Hives Verified 07/12/21 16:49 Consultations 07/12/21 19:08 ED Decision to Admit Stat 07/12/21 21:56 Consult Infectious Diseases Routine 07/13/21 08:00 Consult Cardiology Routine Ordered Studies 07/12/21 16:42 CT angio chest PE protocol Stat 07/12/21 22:21 CT abd pelvis wo con Urgent Hospital Course (1) Sepsis: Sepsis was present on admission and treated while here Despite being persistently bacteremic, her sepsis was resolved (2) Infective endocarditis of tricuspid valve: Remains persistently bacteremic Last blood cultures 07/16 remains positive Daptomycin switched to ceftaroline by Infectious Disease to cover septic pulmonary emboli (3) Multifocal pneumonia: Possible septic emboli with progression-noted cavitary lesions now present on imaging. Possible infection overlying embolic phenomena. Cont abx as outlined above. (4) Pulmonary cavitary lesion: Possibly worsening of septic emboli in setting of MRSA bacteremia. Pulmonology declined consult request. (5) Septic pulmonary embolism: Was on heparin drip which was switched to therapeutic lovenox when patient had lost IV access (6) Electrolyte abnormality: resolved (7) Heroin abuse: Patient with active IV heroine use. Patient with an active arrest warrant Patient reportedly had drugs found in her possession while in the hospital (8) Methamphetamine abuse: (9) Anemia: 2/2 illness with no acute blood loss noted. FOBT negative on admission and she continues on anticoagulation at this time. Anemia workup including normal retic count, LDH and haptoglobin and peripheral smear. She has iron deficiency. Would start supplemental iron at discharge. Vitamin B12 and Folate ordered (10) DVT prophylaxis: Remained on heparin drip then therapeutic lovenox while here Patient eloped from the hospital around 6pm with her IV line. Nursing will notify police. Total Time Total Time Spent Total Time Spent (In Minutes): 35 Discharge Plan Discharge Items Patient Disposition: Against Medical Advice Reason For Visit: INFECTION Activity: Resume your previous activity Non-emergency contact: Primary Care Provider Follow-up/Referrals: PCP,NO [Primary Care Provider] - Pending Studies at Discharge: No Stand-Alone Forms: [employer], Smoking Cessation Medications and DC Order Prescriptions: No Action cefdinir 300 mg capsule 300 mg PO BID RF: 0 Discharge Orders: Left Against Medical Advice (Routine); Ordered 07/17/21 Ordered By: Ethan Bernal Admission Data Admit Date/Time: 07/12/21 19:17 Attending Provider: Ethan Bernal Admit Provider: Naga Guzman Primary Care Provider: PCP,NO Other Providers: Naga Guzman ; Steve Palafox ; Dewayne Duran ; Sotero Watt I. ; Jose Arcos II ; Nery Haynes ; Olivier Reyna ; Clifton Alfaro. ; Colt Carrillo ; Jesus Jackson ; Jay Carrero ; Juan Luis Cadet ; FeltonAlexander urena ; Olivier Cruz ; Michelle Collado ; Francisca Vernon ; Salina Lerma ; Micah Lincoln ; Delicia Kincaid
--- NOTE | 2021-08-21 14:50 | Coding Query ---
SEPSIS To promote full compliance with coding requirements relating to patient care, physician participation is requested in all cases of farmworker field crop uncertainty. Please assist us with the question(s) below: In responding to this query, please exercise your independent professional judgement. The fact that a question is asked does not imply that any particular answer is desired or expected. We appreciate your clarification on this issue. Throughout the medical record, you have clearly documented a localized infection and your patient has clinical evidence of a generalized sepsis or severe sepsis. The term urosepsis is a nonspecific entity and is coded as an UTI. If the patient has sepsis, severe sepsis, from an urinary source or some other source, please clarify in your response below. The medical record reflects the following clinical findings: (With dates as appropriate) (Body temperature of >38.3 C(101 F) or <36 C(96.8F), pulse >90/minute, respirations >20/minute, WBC count >12,000 or <4,000, altered mental status, significant edema or positive fluid balance, hyperglycemia without diabetes, hypotension, metabolic acidosis (elev. lactate level, anion gap or reduced blood pH), shock, positive blood culture (enter organism) ____ ( X )Bacteremia (Nonspecific laboratory finding of bacteria in the blood) Specify Organism ( X) Present on Admission ( ) Not present on admission ( ) Unable to clinically determine ( ) Septicemia (Systemic disease associated with the presence of pathogenic microorganisms in the blood): Specify Organism ( ) Present on Admission ( ) Not present on admission ( Unable to clinically determine ( ) Sepsis Specify Organism Specify Associated Condition/Diagnosis ( ) Present on Admission ( ) Not present on admission ( ) Unable to clinically determine ( ) Severe Sepsis (Sepsis associated with acute organ dysfunction) Specify Organism Specify Associated Condition/Diagnosis ( ) Present on Admission ( ) Not present on admission ( ) Unable to clinically determine ( ) Septic Shock (Severe sepsis with acute circulatory failure, unexplained by other causes) ( ) Present on Admission ( ) Not present on admission ( ) Unable to clinically determine ( ) Other, patient has: MTDD
== END 2021-07-17 18:16 | DRG 871 ==
LOC: ED 16:24 → EDINP 19:17 → SUATTDRO 19:17 → 1E 22:00

== ENCOUNTER 2021-07-17 20:03 | Inpatient (IN) ==
--- NOTE | 2021-07-17 20:29 | Emergency Department Note ---
Impression & Plan Endocarditis ADMIT ED Provider Note HPI: The patient is a 30-year-old female with history of polysubstance abuse, heroin abuse, recent diagnosis of tricuspid valve endocarditis, eloped today from the hospital with IV in place and was subsequently brought back by police later this evening. Patient states she was very anxious earlier this evening, states she just wanted to go home, states that she feels very sorry for what she did and would now like to be readmitted for antibiotics and further inpatient care for her endocarditis. She denies any recent IV drug use although her IV was still in place when she was evaluated by the ambulance and police at her residence. IV was removed, patient was transported to the ED for further care. On arrival here she is hemodynamically stable, she is tachycardic but otherwise in no acute distress, she is saturating well on room air, denies any current complaints. ROS: -General: Encounter for readmission, in police custody, history of infective endocarditis of the tricuspid valve *10 point review systems was conducted and is otherwise negative unless stated above *Outpatient medications and allergy history reviewed PE: General: Alert, NAD HEENT: Normocephalic, atraumatic Eyes: Extraocular eye movement is intact, no scleral erythema Pulmonary: Clear to auscultation bilaterally, no wheezing Cardio: Tachycardic rate and regular rhythm GI: Abdomen is soft, nontender : No suprapubic tenderness MSK: No evidence of trauma or malformation of the extremities, no edema Skin: No evidence of rash Neuro: Alert, no focal deficits Psychiatric: Cooperative surveillance system monitor: - An order was placed for continuous cardiac monitoring - Patient was noted to be in sinus rhythm with rate of 105 EKG: Rate: 101 Rhythm: Sinus tachycardia Intervals: Within normal limits Time: 2031 ST changes: No ST elevation Medical Decision Making: Patient presented to the emergency department after eloping the hospital as she was admitted as an inpatient on IV antibiotics for endocarditis of the tricuspid valve. She tells me that she is not sure why exactly she left, states she was anxious, states she wanted to go home. She is brought in by police because she left with an IV in her arm and she does have a history of IV drug use, on arrival she apparently did have an IV in her arm and this was removed by the ambulance prior to her transport here. I had a thorough discussion with the patient regarding her recent behavior, she did sign out AGAINST MEDICAL ADVICE or possibly elope from [facility] in [place] several weeks ago, she again eloped this hospital today. She tells me that she would like medical treatment at this point, states she is very concerned about her health and does not want to go to [facility] as she is concerned that she may have worsening condition there and does not want to " in [facility]". She does have a serious underlying condition, she does have evidence of tricuspid valve vegetations per echo that was done on July 13. He was admitted to the hospital just today for IV antibiotic therapy and did elope. I do think that she needs to be admitted for IV antibiotics and further management. IV was established, lab work obtained as well as blood cultures, EKG performed, chest x-ray, patient was started back on IV antibiotics per her previous regimen and was given a dose of ceftaroline here in the ED. Upon review of previous documentation course of action at this time was thought to be best to pursue nonsurgical treatment and continue the patient on IV antibiotics/medical therapy. COVID-19 testing was obtained and is negative. At this time the patient is hemodynamically stable, her tachycardia did downtrend with 1 L of IV fluids and therefore none further was given as she is hemodynamically stable at this point. [facility] was [facility] for admission as the patient just left their service several hours ago when she left the hospital. Patient was admitted in stable condition for further care. Of note, patient does now have a warrant for her arrest and will require security precautions during her stay. This was discussed with police at the bedside. * CRITICAL CARE TIME: ( 33 ) minutes -Management/treatment of infective endocarditis of the tricuspid valve requiring IV antibiotic therapy, IV fluid resuscitation, stabilization of tachycardia, interpretation of diagnostic studies, discussion with other physicians, ar rangement of admission Diagnosis: 1. Endocarditis of tricuspid valve 2. Bacteremia 3. Recent medical noncompliance 4. Leukocytosis 5. Tachycardia Disposition: Admission Advised outpatient follow up: - Return to the ED with any new or worsening symptoms - PCP in 2-3 Days Olivier Thomas DO Emergency Medicine Past Med/Surg History Medical History History of drug use No chronic diseases present Surgical History No significant past surgical history Family History Other No significant family history Social History Smoking Status: Current every day smoker Tobacco Type: Cigarettes Hx Alcohol Use: Yes Alcohol type: hard liquor Hx Substance Use: Yes Last Used Substance: Just Prior to Arrival Preferred Language: [place] Communication Ability: Effective Security Developer Required: No Beliefs That Will Affect Care: None marital status: Current Living Situation: Spouse How many Children do You have: 0 Feels Safe at Home: Yes Assistive Devices: None Allergies Allergies Allergy/AdvReac Type Severity Reaction Status Date / Time vancomycin Allergy Mild Hives Verified 07/12/21 16:49 Home Meds Home Medications Medication Instructions Recorded Confirmed cefdinir 300 mg capsule 300 mg PO BID 07/12/21 07/12/21 Results & Data (ED) Vital Signs Vital Signs - 24 hr 07/17/21 20:15 07/17/21 20:32 07/17/21 20:54 Temperature 37.0 C Temperature Source Oral Pulse Rate 118 H 118 H Pulse Rate [Apical] 104 H Pulse Rhythm [Apical] Regular Pulse Strength [Apical] Normal Respiratory Rate 18 16 16 Respiratory Effort / Characteristics Non-Labored Non-Labored Non-Labored Respiratory Depth Normal Normal Respiratory Pattern Regular Regular Blood Pressure 120/82 Blood Pressure [Left Arm] 123/81 Blood Pressure Mean 94 Blood Pressure Mean [Left Arm] 95 Blood Pressure Position Lying Blood Pressure Position [Left Arm] Lying Pulse Oximetry 97 97 98 Oxygen Delivery Method Room Air Room Air Room Air Sepsis Recent Fever Within 48 Hours No Sepsis New/Unexplained Change in Mental Status No Sepsis Action Taken by Nursing No Action Required 07/17/21 21:08 Temperature Temperature Source Pulse Rate Pulse Rate [Apical] Pulse Rhythm [Apical] Pulse Strength [Apical] Respiratory Rate Respiratory Effort / Characteristics Non-Labored Respiratory Depth Respiratory Pattern Blood Pressure Blood Pressure [Left Arm] Blood Pressure Mean Blood Pressure Mean [Left Arm] Blood Pressure Position Blood Pressure Position [Left Arm] Pulse Oximetry 98 Oxygen Delivery Method Room Air Sepsis Recent Fever Within 48 Hours Sepsis New/Unexplained Change in Mental Status Sepsis Action Taken by Nursing Laboratory Data Result diagrams: 07/17/21 20:52 07/17/21 20:52 Lab Results 07/17/21 07/17/21 07/17/21 Range/Units 20:38 20:52 20:52 WBC 14.88 H (4.8-10.8) K/uL RBC 3.10 L (4.2-5.4) M/uL Hgb 9.2 L (12.0-16.0) g/dL Hct 27.8 L (37-47) % MCV 89.7 (80-100) fL MCH 29.7 (25-34) pg MCHC 33.1 (32-36) g/dL RDW Std Deviation 47.3 H (36.4-46.3) fL RDW Coeff of [place] 14.5 (11.5-14.5) % Plt Count 392 (130-400) K/uL MPV 9.4 (7.4-10.4) fL Immature Gran % (Auto) 1.0 % Neut % (Auto) 78.3 % Lymph % (Auto) 13.8 % [place] % (Auto) 5.5 % Eos % (Auto) 1.1 % Baso % (Auto) 0.3 % Neut # (Auto) 11.66 H (1.4-6.5) K/uL Lymph # (Auto) 2.05 (1.2-3.4) K/uL [place] # (Auto) 0.82 H (0.11-0.59) K/uL Eos # (Auto) 0.16 (0-0.5) K/uL Baso # (Auto) 0.04 (0-0.2) K/uL Immature Gran # (Auto) 0.15 H (0.00-0.02) K/uL PT 12.1 H (9.0-12.0) Seconds INR 1.2 H (0.9-1.1) APTT 29.6 (21.0-31.0) Seconds PTT Ratio 1.1 Sodium (136-145) mmol/L Potassium (3.5-5.1) mmol/L Chloride (98-107) mmol/L Carbon Dioxide (21-32) mmol/L Anion Gap (3-11) BUN (6-23) mg/dl Creatinine (0.6-1.2) mg/dl Est Cr Clr Drug Dosing ml/min Est GFR ( Amer) ml/min Est GFR (Non-Af Amer) ml/min BUN/Creatinine Ratio (10-20) Glucose (70-99(Fasting)) mg/dl Lactate (0.4-2.0) mmol/L Calcium (8.5-10.1) mg/dl Magnesium (1.7-2.4) mg/dl Total Bilirubin (0.2-1.0) mg/dl AST (13-39) U/L ALT (7-52) U/L Alkaline Phosphatase (34-104) U/L Troponin I (0-0.04) ng/ml Total Protein (6.0-8.3) gm/dl Albumin (3.4-5.0) gm/dl Globulin (2.5-4.0) gm/dl Albumin/Globulin Ratio (0.9-2) Procalcitonin (0-0.5) ng/ml SARS-CoV-2, RNA, NAAT NEGATIVE (NEGATIVE) 07/17/21 07/17/21 07/17/21 Range/Units 20:52 20:52 20:52 WBC (4.8-10.8) K/uL RBC (4.2-5.4) M/uL Hgb (12.0-16.0) g/dL Hct (37-47) % MCV (80-100) fL MCH (25-34) pg MCHC (32-36) g/dL RDW Std Deviation (36.4-46.3) fL RDW Coeff of [place] (11.5-14.5) % Plt Count (130-400) K/uL MPV (7.4-10.4) fL Immature Gran % (Auto) % Neut % (Auto) % Lymph % (Auto) % [place] % (Auto) % Eos % (Auto) % Baso % (Auto) % Neut # (Auto) (1.4-6.5) K/uL Lymph # (Auto) (1.2-3.4) K/uL [place] # (Auto) (0.11-0.59) K/uL Eos # (Auto) (0-0.5) K/uL Baso # (Auto) (0-0.2) K/uL Immature Gran # (Auto) (0.00-0.02) K/uL PT (9.0-12.0) Seconds INR (0.9-1.1) APTT (21.0-31.0) Seconds PTT Ratio Sodium 134 L (136-145) mmol/L Potassium 4.2 (3.5-5.1) mmol/L Chloride 103 (98-107) mmol/L Carbon Dioxide 23 (21-32) mmol/L Anion Gap 8 (3-11) BUN 6 (6-23) mg/dl Creatinine 0.83 (0.6-1.2) mg/dl Est Cr Clr Drug Dosing 88.4 ml/min Est GFR ( Amer) 108.9 ml/min Est GFR (Non-Af Amer) 94.0 ml/min BUN/Creatinine Ratio 7.2 L (10-20) Glucose 87 (70-99(Fasting)) mg/dl Lactate 1.4 (0.4-2.0) mmol/L Calcium 8.6 (8.5-10.1) mg/dl Magnesium 1.8 (1.7-2.4) mg/dl Total Bilirubin 0.4 (0.2-1.0) mg/dl AST 21 (13-39) U/L ALT 22 (7-52) U/L Alkaline Phosphatase 84 (34-104) U/L Troponin I < 0.03 (0-0.04) ng/ml Total Protein 8.4 H (6.0-8.3) gm/dl Albumin 2.7 L (3.4-5.0) gm/dl Globulin 5.7 H (2.5-4.0) gm/dl Albumin/Globulin Ratio 0.5 L (0.9-2) Procalcitonin 0.40 (0-0.5) ng/ml SARS-CoV-2, RNA, NAAT (NEGATIVE) Administered Medications Discontinued Medications Sodium Chloride (Nss 1000ml) 1,000 mls @ 999 mls/hr IV .Q1H1M ONE Stop: 07/17/21 21:31 Last Admin: 07/17/21 21:01 Dose: 999 mls/hr Documented by: [id number] Ceftaroline Fosamil 600 mg/ (Sodium Chloride) 270 mls @ 250 mls/hr IV ONCE ONE; Protocol Stop: 07/17/21 21:36 Last Admin: 07/17/21 21:01 Dose: 250 mls/hr Documented by: [id number] Discharge Plan Visit Data Chief Complaint: Illness Stated Complaint: PHYSICAL CLEARANCE ED Provider: Olivier Thomas Discharge Problem: Endocarditis Forms Stand Alone Forms: [employer]opik Prescriptions Prescriptions: No Action cefdinir 300 mg capsule 300 mg PO BID RF: 0 Referrals Referrals: PCP,NO [Primary Care Provider] - Discharge Problem: Endocarditis Qualifiers: Endocarditis type: infective Infective endocarditis organism: unspecified organism Chronicity: unspecified Qualified Code(s): I33.0 - Acute and subacute infective endocarditis
[2021-07-17] MEDS ORDERED: SODIUM CHLORIDE 0.9% 1000ML 1,000 ML IV ONE (20:31)
[2021-07-17] MEDS ORDERED: CEFTAROLINE FOSAMIL ACETATE 600 MG in SODIUM CHLORIDE 0.9% 250 ML IV ONE (20:32)
[2021-07-17 21:04] LABS: Basophils # (auto) 0.04 K/uL (0-0.2); Basophils % (auto) 0.3 %; Eosinophils # (auto) 0.16 K/uL (0-0.5); Eosinophils % (auto) 1.1 %; Hematocrit (blood only) 27.8 % (37-47); Hemoglobin 9.2 g/dL (12.0-16.0); Immature Granulocytes # (auto) 0.15 K/uL (0.00-0.02); Lymphocytes # (auto) 2.05 K/uL (1.2-3.4); Lymphocytes % (auto) 13.8 %; Mean Corpuscular Hemoglobin 29.7 pg (25-34); Mean Corpuscular Hgb Conc 33.1 g/dL (32-36); Mean Corpuscular Volume 89.7 fL (80-100); Mean Platelet Volume 9.4 fL (7.4-10.4); Monocytes # (auto) 0.82 K/uL (0.11-0.59); Monocytes % (auto) 5.5 %; Neutrophils # (auto) 11.66 K/uL (1.4-6.5); Neutrophils % (auto) 78.3 %; Platelet Count 392 K/uL (130-400); RDW Coefficient of Variation 14.5 % (11.5-14.5); RDW Standard Deviation 47.3 fL (36.4-46.3); White Blood Count 14.88 K/uL (4.8-10.8)
[2021-07-17 21:14] LABS: INR 1.2 (0.9-1.1); Partial Thromboplastin Ratio 1.1; Partial Thromboplastin Time 29.6 Seconds (21.0-31.0); Prothrombin Time 12.1 Seconds (9.0-12.0)
[2021-07-17 21:26] LABS: Troponin I < 0.03 ng/ml (0-0.04)
[2021-07-17 21:27] LABS: Alanine Aminotransferase 22 U/L (7-52); Albumin Globulin Ratio 0.5 (0.9-2); Albumin Level 2.7 gm/dl (3.4-5.0); Alkaline Phosphatase 84 U/L (34-104); Anion Gap 8 (3-11); Aspartate Aminotransferase 21 U/L (13-39); BUN Creatinine Ratio 7.2 (10-20); Bilirubin,Total 0.4 mg/dl (0.2-1.0); Blood Urea Nitrogen 6 mg/dl (6-23); Calcium 8.6 mg/dl (8.5-10.1); Carbon Dioxide 23 mmol/L (21-32); Chloride 103 mmol/L (98-107); Creatinine Clr Calc Pharmacy 88.4 ml/min; Est GFR (African American) 108.9 ml/min; Globulin 5.7 gm/dl (2.5-4.0); Glucose 87 mg/dl (70-99(Fasting)); Magnesium 1.8 mg/dl (1.7-2.4); Potassium 4.2 mmol/L (3.5-5.1); Sodium 134 mmol/L (136-145); Total Protein 8.4 gm/dl (6.0-8.3)
[2021-07-17] MEDS ORDERED: CONSULT PHARMACY STA (22:48)
[2021-07-17] MEDS ORDERED: Heparin IV Adult Wt-Based Standard *NO* Bolus Protocol ONE (22:52)
[2021-07-17] MEDS ORDERED: NITROGLYCERIN SL 0.4 MG/TAB TAB SL PRN (23:42)
[2021-07-17] MEDS ORDERED: POLYETHYLENE (MIRALAX) 17 GM PACK PO PRN (23:42)
[2021-07-17] MEDS ORDERED: PHARMACY CONSULT IN PROGRESS PRN (23:57)
[2021-07-18] MEDS ORDERED: HEPARIN 25000 UNIT/500 ML D5W IV ONE (00:25)
[2021-07-18] MEDS: ACETAMINOPHEN 325 MG TAB PO PRN ×2 (00:27→09:21)
[2021-07-18] MEDS: NICOTINE 21 MG/24 HR TDSY TD SCH ×2 (00:28→08:09)
[2021-07-18] MEDS: HEPARIN SODIUM/DEXTROSE 25,000 UNITS/500 ML BAG IV SCH ×3 (00:28→22:22)
[2021-07-18] MEDS: SODIUM CHLORIDE 0.9% 1000ML 1,000 ML IV SCH ×2 (00:29→10:10)
[2021-07-18] MEDS: LORazepam 1 MG/2 ML VIAL IV PRN ×3 (01:44→20:07)
--- NOTE | 2021-07-18 02:28 | History and Physical Report ---
DATE OF ADMISSION: 07/17/2021. CHIEF COMPLAINT: Endocarditis. HISTORY OF PRESENT ILLNESS: This is a 30-year-old female with past medical history significant for ongoing heroin abuse, methamphetamine abuse, MRSA bacteremia, tobacco use disorder, endocarditis of tricuspid valve, who was initially admitted on 07/03/2021 with sepsis and at that time workup showed tricuspid valve endocarditis and blood culture growing MRSA bacteremia, transferred to tertiary care for CT surgery evaluation. She was started on IV antibiotics for septic pulmonary emboli and at [place] she signed out AMA on 07/05/2021. CT surgery planned for AngioVac therapy to debulk lesion if it does not improve with antibiotics. The patient got admitted here again on 07/06/2021 with sepsis and endocarditis. Cardiology and ID was consulted. She was in sepsis .Hemoglobin has dropped to 7.2, received 1 unit of PRBCs, but Hemoccult was negative. She was started on heparin and also given broad-spectrum antibiotic d initially Zyvox and Zosyn, but later changed Zyvox to daptomycin. ID was consulted and echo was again done, which is showing again about 1.8 cm x 1.2 cm mobile echodensity in the right atrial aspect of the tricuspid valve consistent with regurgitation and pulmonary systolic pressure of 41 mmHg. ID recommended IVCeftraoline because of endocarditis and also pulmonary lesions. Plan was to continue IV antibiotics for 6 weeks. It looks like there is an active arrest warrant for the patient because of IV heroin abuse and the patient was reportedly also found to have drugs in her possession while in the hospital. Today, again the patient eloped from the room with IV line. Security was notified and the patient was found in her home and brought to the hospital.IV line was removed. The patient says after going home, she used a small amount of heroin, but did not use IV line, used other hand. She says she felt depressed, lonely, and missed her , that is why she left the hospital. Currently, resting comfortably and hemodynamically stable, also slightly tachycardic in the hospital when she came in. Currently heart rate is okay, blood pressure is okay. Saturating fine on room air. Denies any headache. No blurred vision, no earache, no runny nose, no sore throat, no cough, no chest pain, no nausea, no vomiting, no abdominal pain. Normal bowel and bladder movements. Denies any blood in stool or black stools. Yesterday, she said she had some blood in the nose, but currently it seems okay. ALLERGIES: VANCOMYCIN. PAST MEDICAL HISTORY: As mentioned above. PAST SURGICAL HISTORY: No past surgical history on file. MEDICATIONS: The patient signed out AMA. Currently, seems to be not on any medications. As per Epic cefdinir 300 mg p.o. b.i.d. FAMILY HISTORY: No family history on file. SOCIAL HISTORY: Smokes 1 pack of cigarettes every day. Drinks alcohol, not a heavy drinker as per the patient. Does IV heroin every day and methamphetamine once in a while. Also marijuana as per Epic. REVIEW OF SYSTEMS: As per HPI. Rest of the review of systems is negative. PHYSICAL EXAMINATION: GENERAL: The patient is of moderate build, not in acute distress. VITAL SIGNS: Temperature 37, pulse 67, respiratory rate 16, blood pressure 131/70, oxygen 95% on room air. HEENT: Pupils equal, round and reactive to light. Oral mucosa moist. NECK: No JVD, no neck masses. CARDIOVASCULAR: S1 and S2 heard. Regular rate and rhythm. No murmur, no gallop. RESPIRATORY SYSTEM: Normal AP diameter. No accessory muscle use. No wheezing, no crackles. ABDOMEN: Soft, bowel sounds present, nontender, no distention. CENTRAL NERVOUS SYSTEM: Cranial nerves II-XII grossly intact, nonfocal. EXTREMITIES: No edema, no erythema. LABORATORY DATA: WBC 14.8, hemoglobin 9.2, hematocrit 27.8, platelets 392. PT 12.1, INR 1.2, APTT 29.6. Sodium 134, potassium 4.2, chloride 103, bicarbonate 23, BUN 6, creatinine 0.8, serum glucose 87. Lactate 1.4, calcium 8.6, magnesium 1.8, total bilirubin 0.4, AST 21, ALT 22, alkaline phosphatase 84. Troponin I less than 0.03. Procalcitonin 0.4. SARS-CoV-2 RNA negative. IMAGING DATA: Chest x-ray, no acute findings. EKG: Sinus tachycardia at a rate of 101. Nonspecific ST changes. ASSESSMENT AND PLAN: This is a 30-year-old female who was recently diagnosed with tricuspid valve endocarditis,eloped from [place] on 07/05/2021. Currently was also admitted here on 07/12/2021, again eloped today. Was brought in by the dynamic balancer set up worker as the patient left the hospital with IV line. 1. Endocarditis: Currently, hemodynamically stable, afebrile. Recent blood cultures on 07/16/2021 are still growing gram-positive cocci in clusters. Blood cultures done from today are still pending. ID recommended iv ceftraoline during last admission, which will be continued. Also, consult cardiology. Monitor in the tele floor. IV fluids 100 mL per hour for 2 liters. Closely monitor. The patient may need some close watching as this is the second time she eloped. 2. Multifocal pneumonia, septic emboli with cavitary lesions: Antibiotics as above. Needs followup. 3.Septic pulmonary embolism, started on IV heparin. Can change to Lovenox in the a.m. 4. Drug abuse, she says she takes IV heroin almost daily, amphetamine once in a while. Alcohol, she says she is not a heavy drinker. Will monitor for any withdrawals.IV ativan prn. 5. Anemia: Hemoglobin is 9.2 today, last admission she received 1 unit of PRBC. Looks like she has iron deficiency and needs iron tablets. 6. Deep venous thrombosis prophylaxis. Currently on IV heparin. 7. Code status . Full code. Disposition. Monitor in tele. PT/OT prior to discharge. Social service to help with discharge planning. Job ID: [id number] MTDD
[2021-07-18] MEDS: CEFTAROLINE FOSAMIL ACETATE 600 MG in SODIUM CHLORIDE 0.9% 250 ML IV SCH ×3 (05:46→21:05)
--- NOTE | 2021-07-18 07:04 | XRay Report ---
XR chest 1V portable CLINICAL HISTORY: SEPSIS. Follow-up bilateral airspace opacities COMPARISON STUDY: 07/16/2021 TECHNIQUE: 1 view of the chest FINDINGS: Single frontal view of the chest demonstrates the cardiomediastinal silhouette to be within normal li mits. Compared to previous examination, bilateral airspace opacities are again seen. Increase alveola r opacities present left lung base. There is no evidence for pleural effusion. There is no evidence f or vascular congestion. There is no acute osseous pathology. IMPRESSION: Bilateral interstitial and alveolar opacities are again seen which have increased at left lung base. Findings are characteristic of viral type pneumonitis and Covid pneumonia. ACT 112: Negative or not required by law. Electronically signed by: Chance Rausch M.D. 07/18/2021 7:03 AM
[2021-07-18 07:12] LABS: Basophils # (auto) 0.02 K/uL (0-0.2); Basophils % (auto) 0.2 %; Eosinophils # (auto) 0.16 K/uL (0-0.5); Eosinophils % (auto) 1.3 %; Hematocrit (blood only) 24.9 % (37-47); Immature Granulocytes # (auto) 0.11 K/uL (0.00-0.02); Immature Granulocytes % (auto) 0.9 %; Lymphocytes # (auto) 1.99 K/uL (1.2-3.4); Lymphocytes % (auto) 16.7 %; Mean Corpuscular Hemoglobin 28.6 pg (25-34); Mean Corpuscular Hgb Conc 32.1 g/dL (32-36); Mean Corpuscular Volume 88.9 fL (80-100); Mean Platelet Volume 9.2 fL (7.4-10.4); Monocytes # (auto) 0.69 K/uL (0.11-0.59); Monocytes % (auto) 5.8 %; Neutrophils # (auto) 8.94 K/uL (1.4-6.5); Neutrophils % (auto) 75.1 %; Platelet Count 334 K/uL (130-400); RDW Coefficient of Variation 14.5 % (11.5-14.5); RDW Standard Deviation 46.8 fL (36.4-46.3); White Blood Count 11.91 K/uL (4.8-10.8)
[2021-07-18 07:22] LABS: Partial Thromboplastin Ratio 1.3; Partial Thromboplastin Time 35.4 Seconds (21.0-31.0)
[2021-07-18 07:30] LABS: BUN Creatinine Ratio 7.4 (10-20); Calcium 7.7 mg/dl (8.5-10.1); Creatinine Clr Calc Pharmacy 112.2 ml/min; Est GFR (African American) 135.1 ml/min; Est GFR (Non-African American) 116.6 ml/min; Magnesium 1.6 mg/dl (1.7-2.4); Potassium 3.9 mmol/L (3.5-5.1)
[2021-07-18] MEDS ORDERED: HEPARIN SOD (PORCINE) 1000 UNIT/ML ONE (07:33)
--- NOTE | 2021-07-18 09:23 | Cardiology Progress Note ---
Date of Service July 18, 2021 Assessment & Plan (1) Endocarditis: (2) Pulmonary emboli: (3) Pulmonary cavitary lesion: (4) Multifocal pneumonia: (5) Heroin abuse: (6) Septic pulmonary embolism: (7) Infective endocarditis of tricuspid valve: (8) Sepsis: (9) Noncompliance: (10) Methamphetamine abuse: Plan: Patient with ongoing MRSA bacteremia, documented large tricuspid valve vegetation, septic pulmonary emboli. Repeat cultures remain positive. Sinus tachycardia is now present, and the degree of tricuspid regurgitation has progressed from mild to moderate, mild pulmonary hypertension now present. As noted, patient had been seen by CT surgery, medical therapy recommended at that time, and at this point, would continue antibiotic therapy. Daptomycin has been recommended by infectious disease during recent stay at [facility]. Cautiously continue unfractioned heparin. Treat with anticoagulation less than ideal in the setting of endocarditis, however this is right-sided endocarditis without any left-sided lesions at least noted within the scope of the transthoracic echocardiogram resolution, and given CT findings, subjective chest pain and shortness of breath, cautious anticoagulation to be continued along with antibiotic therapy. given that blood cultures have persistently remained positive despite abx therapy and no improvement of vegetation appearance on TTE recommend transfer to tertiary care center with CT surgery and advanced clay processing labourer capabilities to evaluate for possible percutaneous AngioVac aspiration to debulk the tricuspid valve vegetation pt and have refused transfer to [facility], may consider another facility like [facility] or other similar tertiary care center Admission and Anticipated Discharge Date Admission Date: July 17, 2021 Subjective Pt seen and examined, chart reviewed along with elopement. Review of Systems Review of Systems: All systems reviewed & are unremarkable except as noted in HPI & below Physical Exam Physical Exam: General: Awake, alert and oriented x 3. No acute distress. HEENT: Normocephalic, atraumatic. Pupils equal, round and reactive to light and accommodation. Extraocular muscles are intact. Anicteric sclera. Moist mucous membranes. Neck: No JVD. No bruit. Cardiovascular: Regular. Positive S-4. Normal S-1 and S-2. No S-3. 3/6 holosystolic ejection murmur, 5th intercostal space, mid-clavicular line without radiation. No rubs. Pulmonary: Clear to auscultation bilaterally. No rales, rhonchi, or wheezing. Abdomen: Bowel sounds x 4, soft. No rebound, guarding or tenderness. No organomegaly. Extremities: No clubbing, cyanosis or edema. +2 pedal pulses bilaterally. Skin: Warm and dry. Results & Data ([facility]) Vital Signs (Past 12 Hours) Vital Signs Temp Pulse Resp BP Pulse Ox Pulse Ox 07/18/21 07:40 36.7 C 99 H 16 102/64 96 07/18/21 05:14 89 24 97 07/18/21 03:54 90 24 124/96 96 07/18/21 02:46 98 H 19 97 07/18/21 01:30 36.6 C 94 H 20 100/71 98 07/18/21 00:35 37.1 C 99 H 18 115/73 97 07/17/21 23:42 98 07/17/21 22:54 100 H 18 128/87 96 07/17/21 22:30 16 95 07/17/21 22:05 67 18 131/70 95 07/17/21 22:00 95 07/17/21 21:30 18 95 (1) Endocarditis Chronicity: unspecified Endocarditis type: infective Infective endocarditis organism: unspecified organism Qualified Code(s): I33.0 - Acute and subacute infective endocarditis (2) Sepsis Sepsis acute organ dysfunction status: with acute organ dysfunction Sepsis type: methicillin resistant Staphylococcus aureus Severe sepsis acute organ dysfunction type: unspecified Severe sepsis shock status: with septic shock Qualified Code(s): A41.02 - Sepsis due to Methicillin resistant Staphylococcus aureus; R65.21 - Severe sepsis with septic shock (3) Pulmonary emboli Acute cor pulmonale presence: unspecified Chronicity: acute Pulmonary embolism type: septic Qualified Code(s): I26.90 - Septic pulmonary embolism without acute cor pulmonale
--- NOTE | 2021-07-18 11:39 | Communication Note ---
Date of Service: July 18, 2021 attempted to see patient following ECHO this am, she is sleeping soundly and did not awaken readily to name. Chart reviewed as hx of leaving hospital AMA currently ongoing MRSA bacteremia, large tricuspid valve vegetation, septic pulmonary emboli refusing transfer to a tertiary care facility spot checked ED notes going back to 2018, long hx of IV drug abuse (heroin, fentanyl) and meth. I see an rx for suboxone in the PDMP from 11/02 and a hx of homelessness for her and . last urine tox 07/12 positive for meth, experienced withdrawal and left hospital (eloped) with IV in place, brought back and admit use heroin and meth 2/2. Received Ativan overnight for withdrawal symptoms. not a reliable newspaper reporter re: her current amount of Etoh us, see a 07/06 admission for pneumonia with hyponatremia felt to be related to chronic ETOH use. Consult is for depression, will be difficult to assess in the context of severe substance abuse and need for rehab but too physically sick for the latter most of her complaints seem withdrawal related and/or left due to cravings to use rather than misunderstanding care needed but will further evaluate Ativan is typically helpful for acute agitation related to recent meth use, would favor clonidine for sweats/cramps.
[2021-07-18 14:10] LABS: Partial Thromboplastin Ratio 1.4
[2021-07-18] MEDS: cloNIDine HCL 0.1 MG TAB PO SCH ×2 (15:44→20:08)
--- NOTE | 2021-07-18 16:44 | Hospitalist Progress Note ---
Date of Service July 18, 2021 Assessment & Plan Plan: Triscuspid Valve MRSA endocarditis Multifocal pneumonia -continue Ceftaroline (previously was on daptomycin) -TTE 07/13 compared to 07/03 showed worsening tricuspid valve regurgitation (from mild to moderate) and new mild pulmonary hypertension -TTE today unchanged compared to 07/13 -Blood cultures as recent as 07/16 has been positive -Appreciate Cardiology input, recommend transfer to Tertiary center for CT surg rocio re-evaluation and consideration of percutaneous TV vegetation debulking with her worsening tricuspid regurgitation and new pulmonary HTN with persistently positive blood cultures [place] [place] and case discussed with Hospitalist provider--> waiting to hear back Polysubstance Drug Use -Active IV heroine use and methamphetamine use -start clonidine 0.1mg TID for withdrawal, ativan PRN as ordered -patient with active arrest warrant Pulmonary Emboli possibly infectious -continue antibiotics as above -continue heparin drip Pancytopenia -likely due to bone marrow suppression from active drug use - improved Iron deficiency anemia -recommend starting iron supplements at discharge, check B12, folate DVT ppx -heparin drip Admission and Anticipated Discharge Date Admission Date: July 17, 2021 Subjective "I don't want to talk about it" when asked why she eloped yesterday Feels withdrawal symptoms (anxious, jittery). Initially refused transfer to [facility], but now is agreeable Physical Exam Constitutional: appears uncomfortable but no acute distress, disheveled, appears older than stated age ENMT: poor dentition Neck: supple Respiratory: breathing comfortably on room air, no wheezing/rhonchi/rales Cardiovascular: regular rate and rhythm, loud systolic murmur at lower left sternal border Gastrointestinal (Abdomen): soft, non distended Neurologic: awake, alert, spontaneously moving extremities Psychiatric: anxious Results & Data Results & Data ([facility]) Vital Signs (Past 12 Hours) Vital Signs Temp Pulse Pulse Resp BP Pulse Ox 07/18/21 16:00 100 H 07/18/21 15:12 36.8 C 96 H 18 119/81 97 07/18/21 13:00 90 15 102/64 99 07/18/21 11:00 90 16 95 07/18/21 07:40 36.7 C 99 H 16 102/64 96 07/18/21 05:14 89 24 97
[2021-07-18] MEDS ORDERED: HEPARIN SOD (PORCINE) 1000 UNIT/ML IV ONE (17:00)
--- NOTE | 2021-07-18 17:37 | Discharge Summary ---
Date of Service July 18, 2021 Admission HPI Per Admitting Provider This is a 30-year-old female with past medical history significant for ongoing heroin abuse, methamphetamine abuse, MRSA bacteremia, tobacco use disorder, endocarditis of tricuspid valve, who was initially admitted on 07/03/2021 with sepsis and at that time workup showed tricuspid valve endocarditis and blood culture growing MRSA bacteremia, transferred to tertiary care for CT surgery evaluation. She was started on IV antibiotics for septic pulmonary emboli and at [facility] she signed out AMA on 07/05/2021. CT surgery planned for AngioVac therapy to debulk lesion if it does not improve with antibiotics. The patient got admitted here again on 07/06/2021 with sepsis and endocarditis. Cardiology and ID was consulted. She was in sepsis .Hemoglobin has dropped to 7.2, received 1 unit of PRBCs, but Hemoccult was negative. She was started on heparin and also given broad-spectrum antibiotic d initially Zyvox and Zosyn, but later changed Zyvox to daptomycin. ID was consulted and echo was again done, which is showing again about 1.8 cm x 1.2 cm mobile echodensity in the right atrial aspect of the tricuspid valve consistent with regurgitation and pulmonary systolic pressure of 41 mmHg. ID recommended IV Ceftraoline because of endocarditis and also pulmonary lesions. Plan was to continue IV antibiotics for 6 weeks. It looks like there is an active arrest warrant for the patient because of IV heroin abuse and the patient was reportedly also found to have drugs in her possession while in the hospital. 07/17/2021, again the patient eloped from the room with IV line. Security was notified and the patient was found in her home and brought to the hospital.IV line was removed. The patient says after going home, she used a small amount of heroin, but did not use IV line, used other hand. She says she felt depressed, lonely, and missed her , that is why she left the hospital. Currently, resting comfortably and hemodynamically stable, also slightly tachycardic in the hospital when she came in. Currently heart rate is okay, blood pressure is okay. Saturating fine on room air. Denies any headache. No blurred vision, no earache, no runny nose, no sore throat, no cough, no chest pain, no nausea, no vomiting, no abdominal pain. Normal bowel and bladder movements. Denies any blood in stool or black stools. Yesterday, she said she had some blood in the nose, but currently it seems okay. Principal Diagnosis Tricuspid Valve MRSA Endocarditis MRSA Bacteremia Multifocal Pneumonia Pulmonary Emboli, possibly septic New Moderate TV regurgitation New Mild Pulmonary Hypertension IV heroine use Medical Non compliance Discharge Exam Please see my note from today for physical exam. Discharge Data Allergies Allergy/AdvReac Type Severity Reaction Status Date / Time vancomycin Allergy Mild Hives Verified 07/12/21 16:49 Consultations 07/17/21 21:46 ED Decision to Admit Stat 07/18/21 08:00 Consult Cardiology Routine 07/18/21 09:00 Consult Psychiatry Routine Hospital Course Triscuspid Valve MRSA endocarditis Multifocal pneumonia -continue Ceftaroline (previously was on daptomycin) -TTE 07/13 compared to 07/03 showed worsening tricuspid valve regurgitation (from mild to moderate) and new mild pulmonary hypertension -TTE today unchanged compared to 07/13 -Blood cultures as recent as 07/16 has been positive -Appreciate Cardiology input, recommend transfer to Tertiary center for CT surgery re-evaluation and consideration of percutaneous TV vegetation debulking with her worsening tricuspid regurgitation and new pulmonary HTN with persistently positive blood cultures [place] [place] and case discussed with Hospitalist provider--> patient accepted for transfer to Hospitalist service (Dr Lemons) Polysubstance Drug Use -Active IV heroine use and methamphetamine use -start clonidine 0.1mg TID for withdrawal, ativan PRN as ordered -patient with active arrest warrant Pulmonary Emboli possibly infectious -continue antibiotics as above -continue heparin drip Pancytopenia -likely due to bone marrow suppression from active drug use - improved Iron deficiency anemia -recommend starting iron supplements at discharge, check B12, folate DVT ppx -heparin drip Current Inpatient Medications Acetaminophen (Acetaminophen 325 Mg Tab) 650 mg PO Q4H PRN PRN Reason: Pain or Fever Stop: 08/16/21 23:41 Last Admin: 07/18/21 09:21 Dose: 650 mg Documented by: Clonidine HCl (Clonidine Hcl 0.1 Mg Tab) 0.1 mg PO Q8 RIKKI Stop: 08/17/21 15:29 Last Admin: 07/18/21 15:44 Dose: 0.1 mg Documented by: Heparin Sodium/Dextrose (Heparin Sodium/Dextrose) 25,000 units in 500 mls @ 25 mls/hr IV .Q20H [facility]; Protocol Stop: 08/16/21 23:14 Last Titration: 07/18/21 16:45 Dose: 1,250 units/hr, 25 mls/hr Documented by: Lorazepam (Ativan) 1 mg in 2 mls @ 2 mls/min IV Q4H PRN PRN Reason: Anxiety/Agitation Stop: 08/16/21 23:41 Last Admin: 07/18/21 15:03 Dose: 2 mls/min Documented by: Sodium Chloride (Nss 1000ml) 1,000 mls @ 100 mls/hr IV .Q10H [facility] Stop: 07/18/21 19:41 Last Admin: 07/18/21 10:10 Dose: 100 mls/hr Documented by: Ceftaroline Fosamil 600 mg/ (Sodium Chloride) 270 mls @ 250 mls/hr IV Q8H [facility]; Protocol Stop: 08/29/21 04:59 Last Infusion: 07/18/21 14:45 Dose: Infused Documented by: Miscellaneous (Remove Nicoderm Patch) 1 ea N/A DAILY@0859 [facility] Stop: 08/17/21 08:58 Last Admin: 07/18/21 08:09 Dose: 1 ea Documented by: Miscellaneous Information (Pharmacy Consult In Progress) 1 ea N/A UD PRN PRN Reason: Consult Stop: 08/16/21 23:56 Nicotine (Nicotine 21 Mg/24 Hr Tdsy) 21 mg TD DAILY [facility] Stop: 08/16/21 23:41 Last Admin: 07/18/21 08:09 Dose: 21 mg Documented by: Nitroglycerin (Nitroglycerin Sl 0.4 Mg/Tab Tab) 0.4 mg SL UD PRN PRN Reason: Chest Pain Stop: 08/16/21 23:41 Polyethylene Glycol (Polyethylene (Miralax) 17 Gm Pack) 17 gm PO DAILY PRN PRN Reason: Constipation Stop: 08/16/21 23:41 Total Time Total Time Spent Total Time Spent (In Minutes): 45 Discharge Plan Discharge Items Patient Disposition: Transfer Acute Care Hospital Reason For Visit: ILLNESS Discharge Diagnosis: Tricuspid Valve MRSA endocarditis Multifocal Pneumonia Pulmonary emboli, possibly septic Moderate TV regurgitation (new) Mild Pulmonary Hypertension (new) Active IV heroine user Active methamphetamine user Condition on Discharge: Fair Activity: Resume your previous activity Non-emergency contact: Primary Care Provider Call non-emergency contact if: you have any medication questions Follow-up/Referrals: PCP,NO [Primary Care Provider] - Diet: Regular Addtl Attending Provider Instructions: Patient is being transferred [place] [facility] [place] and consideration of percutaneous TV debulking. Worsening Tricuspid regurgitation and new mild pulmonary HTN with persistently positive blood cultures Pending Studies at Discharge: Yes Studies:: Repeat blood cultures from 2/3 Stand-Alone Forms: My [employer] Skilled Items Patient informed of condition?: Yes DNR: No Discharge Level of Care: Other Communicable Disease: No Discharge Prognosis: Stable Lines: Peripheral IV Urinary Catheter: No Medications and DC Order Prescriptions: Discontinued cefdinir 300 mg capsule 300 mg PO BID RF: 0 Discharge Orders: Discharge Order (Routine); Ordered 07/18/21 Ordered By: Ethan Bernal Admission Data Admit Date/Time: 07/17/21 22:43 Attending Provider: Ethan Bernal Admit Provider: Naga Guzman Primary Care Provider: PCP,NO Other Providers: Naga Guzman ; Colt Carrillo Erica K. ; Trina Lopez ; Dolly Wyatt ; Nghia Stone
--- NOTE | 2021-07-18 17:43 | Communication Note ---
Date of Service: July 18, 2021 Current Inpatient Medications Acetaminophen (Acetaminophen 325 Mg Tab) 650 mg PO Q4H PRN PRN Reason: Pain or Fever Stop: 08/16/21 23:41 Last Admin: 07/18/21 09:21 Dose: 650 mg Documented by: Clonidine HCl (Clonidine Hcl 0.1 Mg Tab) 0.1 mg PO Q8 [facility] Stop: 08/17/21 15:29 Last Admin: 07/18/21 15:44 Dose: 0.1 mg Documented by: Heparin Sodium/Dextrose (Heparin Sodium/Dextrose) 25,000 units in 500 mls @ 25 mls/hr IV .Q20H [facility]; Protocol Stop: 08/16/21 23:14 Last Titration: 07/18/21 16:45 Dose: 1,250 units/hr, 25 mls/hr Documented by: Lorazepam (Ativan) 1 mg in 2 mls @ 2 mls/min IV Q4H PRN PRN Reason: Anxiety/Agitation Stop: 08/16/21 23:41 Last Admin: 07/18/21 15:03 Dose: 2 mls/min Documented by: Sodium Chloride (Nss 1000ml) 1,000 mls @ 100 mls/hr IV .Q10H [facility] Stop: 07/18/21 19:41 Last Admin: 07/18/21 10:10 Dose: 100 mls/hr Documented by: Ceftaroline Fosamil 600 mg/ (Sodium Chloride) 270 mls @ 250 mls/hr IV Q8H [facility]; Protocol Stop: 08/29/21 04:59 Last Infusion: 07/18/21 14:45 Dose: Infused Documented by: Miscellaneous (Remove Nicoderm Patch) 1 ea N/A DAILY@0859 [facility] Stop: 08/17/21 08:58 Last Admin: 07/18/21 08:09 Dose: 1 ea Documented by: Miscellaneous Information (Pharmacy Consult In Progress) 1 ea N/A UD PRN PRN Reason: Consult Stop: 08/16/21 23:56 Nicotine (Nicotine 21 Mg/24 Hr Tdsy) 21 mg TD DAILY [facility] Stop: 08/16/21 23:41 Last Admin: 07/18/21 08:09 Dose: 21 mg Documented by: Nitroglycerin (Nitroglycerin Sl 0.4 Mg/Tab Tab) 0.4 mg SL UD PRN PRN Reason: Chest Pain Stop: 08/16/21 23:41 Polyethylene Glycol (Polyethylene (Miralax) 17 Gm Pack) 17 gm PO DAILY PRN PRN Reason: Constipation Stop: 08/16/21 23:41
[2021-07-18 17:55] LABS: Appearance Urine Clear (Clear); Bacteria Urine Automated Negative (Negative); Bilirubin Urine Negative (Negative); Blood Urine 1+ (Negative); Cast Urine Automated 0 /lpf (0-5); Color Urine Yellow; Glucose Urine UA Negative (Negative); Ketones Urine Negative (Negative); Leukocyte Esterase Urine Trace (Negative); Nitrite Urine Negative (Negative); Protein Urine Negative (Negative); Specific Gravity Urine 1.007 (1.000-1.030); Urobilinogen Urine Negative (Negative)
--- NOTE | 2021-07-18 22:25 | Electrocardiogram Report ---
Test Reason : Blood Pressure : / mmHG Vent. Rate : 101 BPM Atrial Rate : 101 BPM P-R Int : 128 ms QRS Dur : 082 ms QT Int : 334 ms P-R-T Axes : 034 058 047 degrees QTc Int : 433 ms Poor data quality, interpretation may be adversely affected Sinus tachycardia Otherwise normal ECG When compared with ECG of 12-JUL-2021 17:02, Nonspecific T wave abnormality no longer evident in Inferior leads Confirmed by Kyle Ortiz ([id number]) on 07/18/2021 10:24:44 PM Referred By: REFERRED SELF Confirmed By:Kyle Ortiz
[2021-07-18 23:05] LABS: Partial Thromboplastin Ratio 1.3; Partial Thromboplastin Time 34.7 Seconds (21.0-31.0)
[2021-07-19] MEDS: LORazepam 1 MG/2 ML VIAL IV PRN ×6 (01:44→22:16)
[2021-07-19] MEDS ORDERED: HEPARIN IV BOLUS 2,000 UNITS in SYRINGE 0 ML IV ONE (04:45)
[2021-07-19] MEDS: CEFTAROLINE FOSAMIL ACETATE 600 MG in SODIUM CHLORIDE 0.9% 250 ML IV SCH ×3 (05:11→21:06)
[2021-07-19] MEDS: cloNIDine HCL 0.1 MG TAB PO SCH ×3 (06:37→21:06)
[2021-07-19 07:01] LABS: Basophils # (auto) 0.03 K/uL (0-0.2); Basophils % (auto) 0.2 %; Eosinophils # (auto) 0.16 K/uL (0-0.5); Eosinophils % (auto) 1.2 %; Hematocrit (blood only) 23.7 % (37-47); Hemoglobin 7.6 g/dL (12.0-16.0); Immature Granulocytes # (auto) 0.19 K/uL (0.00-0.02); Immature Granulocytes % (auto) 1.4 %; Lymphocytes % (auto) 15.9 %; Mean Corpuscular Hemoglobin 28.7 pg (25-34); Mean Corpuscular Hgb Conc 32.1 g/dL (32-36); Mean Corpuscular Volume 89.4 fL (80-100); Mean Platelet Volume 9.2 fL (7.4-10.4); Monocytes # (auto) 0.74 K/uL (0.11-0.59); Monocytes % (auto) 5.3 %; Neutrophils # (auto) 10.54 K/uL (1.4-6.5); Platelet Count 348 K/uL (130-400); RDW Coefficient of Variation 14.5 % (11.5-14.5); RDW Standard Deviation 47.3 fL (36.4-46.3); Red Blood Count 2.65 M/uL (4.2-5.4); White Blood Count 13.86 K/uL (4.8-10.8)
[2021-07-19 07:32] LABS: Partial Thromboplastin Ratio 1.9
[2021-07-19 07:34] LABS: Anisocytosis Present; Polychromasia 1+
[2021-07-19 07:38] LABS: Albumin Globulin Ratio 0.5 (0.9-2); Albumin Level 2.3 gm/dl (3.4-5.0); BUN Creatinine Ratio 8.6 (10-20); Bilirubin,Total 0.2 mg/dl (0.2-1.0); Creatinine Clr Calc Pharmacy 94.2 ml/min; Est GFR (African American) 112.2 ml/min; Est GFR (Non-African American) 96.8 ml/min; Globulin 4.5 gm/dl (2.5-4.0); Partial Thromboplastin Time 48.8 Seconds (21.0-31.0); Potassium 3.8 mmol/L (3.5-5.1); Total Protein 6.8 gm/dl (6.0-8.3)
[2021-07-19 07:59] LABS: Folate (Folic Acid) 8.25 ng/ml (>5.38)
[2021-07-19] MEDS: NICOTINE 21 MG/24 HR TDSY TD SCH (08:35)
[2021-07-19] MEDS: HEPARIN SODIUM/DEXTROSE 25,000 UNITS/500 ML BAG IV SCH ×3 (09:19→18:49)
--- NOTE | 2021-07-19 11:26 | Cardiology Progress Note ---
Date of Service July 19, 2021 Assessment & Plan (1) Endocarditis: (2) Pulmonary emboli: (3) Pulmonary cavitary lesion: (4) Multifocal pneumonia: (5) Heroin abuse: (6) Septic pulmonary embolism: (7) Infective endocarditis of tricuspid valve: (8) Sepsis: (9) Noncompliance: (10) Methamphetamine abuse: Plan: Patient with ongoing MRSA bacteremia, documented large tricuspid valve vegetation, septic pulmonary emboli. Repeat cultures remain positive. Sinus tachycardia is now present, and the degree of tricuspid regurgitation has progressed from mild to moderate, mild pulmonary hypertension now present. As noted, patient had been seen by CT surgery, medical therapy recommended at that time, and at this point, would continue antibiotic therapy. Daptomycin has been recommended by infectious disease [place] [facility] [place] Cautiously continue unfractioned heparin. Treat with anticoagulation less than ideal in the setting of endocarditis, however this is right-sided endocarditis without any left-sided lesions at least noted within the scope of the transthoracic echocardiogram resolution, and given CT findings, subjective chest pain and shortness of breath, cautious anticoagulation to be continued along with antibiotic therapy. given that blood cultures have persistently remained positive despite abx therapy and no improvement of vegetation appearance on TTE recommend transfer to tertiary care center with CT surgery and advanced animal laboratory technician capabilities to evaluate for possible percutaneous AngioVac aspiration to debulk the tricuspid valve vegetation pt and have refused [place] [facility] may consider another facility like [facility] or other similar tertiary care center Admission and Anticipated Discharge Date Admission Date: July 17, 2021 Subjective Patient seen and examined, chart reviewed. Patient much more awake and alert today. Currently seated in bed drawing. Telemetry reviewed: Sinus tachycardia without arrhythmias. Review of Systems Review of Systems: All systems reviewed & are unremarkable except as noted in HPI & below Physical Exam Physical Exam: General: Awake, alert and oriented x 3. No acute distress. HEENT: Normocephalic, atraumatic. Pupils equal, round and reactive to light and accommodation. Extraocular muscles are intact. Anicteric sclera. Moist mucous membranes. Neck: No JVD. No bruit. Cardiovascular: Regular. Positive S-4. Normal S-1 and S-2. No S-3. 3/6 holosystolic ejection murmur, 5th intercostal space, mid-clavicular line without radiation. No rubs. Pulmonary: Clear to auscultation bilaterally. No rales, rhonchi, or wheezing. Abdomen: Bowel sounds x 4, soft. No rebound, guarding or tenderness. No organomegaly. Extremities: No clubbing, cyanosis or edema. +2 pedal pulses bilaterally. Skin: Warm and dry. Results & Data ([facility]) Vital Signs (Past 12 Hours) Vital Signs Temp Pulse Pulse Resp BP Pulse Ox 07/19/21 08:00 36.6 C 91 H 100 H 18 109/71 96 07/19/21 02:46 36.6 C 94 H 18 121/82 97 07/19/21 00:00 96 H 07/18/21 23:59 96 H (1) Endocarditis Chronicity: unspecified Endocarditis type: infective Infective endocarditis organism: unspecified organism Qualified Code(s): I33.0 - Acute and subacute infective endocarditis (2) Pulmonary emboli Acute cor pulmonale presence: unspecified Chronicity: acute Pulmonary embolism type: septic Qualified Code(s): I26.90 - Septic pulmonary embolism without acute cor pulmonale (3) Sepsis Sepsis acute organ dysfunction status: with acute organ dysfunction Sepsis type: methicillin resistant Staphylococcus aureus Severe sepsis acute organ dysfunction type: unspecified Severe sepsis shock status: with septic shock Qualified Code(s): A41.02 - Sepsis due to Methicillin resistant Staphylococcus aureus; R65.21 - Severe sepsis with septic shock
--- NOTE | 2021-07-19 11:42 | Psychiatric Consultation ---
Date of Consultation July 19, 2021 Impression / Recommendations Impression 30 yo female with probable intermittent depression eclipsed by her significant substance use/dependence history, currently quite sick with endocarditis and septic emboli awaiting transfer to tertiary care facility. She is not particularly cooperative or interested in psychiatric consultation but admits to worsening mood since is incarcerated. Remains very focussed on cigarettes to the exclusion she cannot carry on meaningful conversation about her medical situation but clearly understands she is at risk of and serious damage to her heart/lungs without ongoing treatment and is accepting of care/transfer. (1) Adjustment disorder with disturbance of conduct: (2) Polysubstance abuse: (3) Noncompliance: there is no evidence of psychosis or acute beatriz interfering with her medical decision making substance abuse/dependence is not committable as a primary condition under [place] mental health law. she declines nicotine gum or Wellbutrin to assist with nicotine cravings. BP and P elevation likely somewhat anxiety related but certainly at high risk for withdrawal as unclear how much/what used in time she was away from hospital, appears to have had diarrhea in her bathroom so would suspect opiate rather than Etoh withdrawal which is typically managed with clonidine, lomotil, etc. Risk Factors Assessment Do You Have Access To A Gun?: No Psych History Identifying Data 30year-old female ongoing MRSA bacteremia, large tricuspid valve vegetation, septic pulmonary emboli now accepting of referral to a tertiary care facility ([facility] pending) Chief Complaint hx of non compliance with tx, "of course I'm depressed, no one will let me have a cigarette." History of Present Illness The patient essentially states this consult is useless as she just wants "2 puffs" of a cigarette and that's the only way she can cope and be treated like a human being. Reviewed that she seemed tired yesterday and we weren't able to engage her in the consult. She stated she was just unmotivated and again asked for cigarettes. Was offered gum as already on patch and she stated that it would "just get stuck in my bed teeth." She reported that she's stuck in [place] and doesn't want to live here. Her is her only support and currently in [facility]dc for undetermined amount of time. spot checked ED notes going back to 2019, long hx of IV drug abuse (heroin, fentanyl) and meth. I see an rx for suboxone in the PDMP from 11/02 and a hx of homelessness for her and . last urine tox 07/12 positive for meth, experienced withdrawal and left hospital (eloped) with IV in place, brought back and admit use heroin and meth 2/2. Receiving prn Ativan for withdrawal symptoms. 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 Past Psychiatric History Previous Psych History: she is rather uncooperative with direct questions, says she was on meds and saw a therapist for depression when she was in high school, unable to give reliable hx around any possible symptoms of bipolar disorder. Previous Psych Admissions: denied Do You Have Access To A Gun?: No History of Previous Suicide Attempt: No Past Medication Trials: cannot list, see HPI for rehab meds Allergies Allergy/AdvReac Type Severity Reaction Status Date / Time vancomycin Allergy Mild Hives Verified 07/12/21 16:49 Personal History Beliefs That Will Affect Care: None Patient History Medical History History of drug use No chronic diseases present Surgical History No significant past surgical history Family History Other No significant family history Social History Smoking Status: Current every day smoker Tobacco Type: Cigarettes Hx Alcohol Use: Yes Alcohol type: hard liquor Hx Substance Use: Yes Last Used Substance: Hours (ago) Preferred Language: Danish Communication Ability: Effective 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 Beliefs That Will Affect Care: None marital status: Current Living Situation: Alone How many Children do You have: 0 Feels Safe at Home: Yes Safety Concerns: Feels Safe At This Time Assistive Devices: None Physical Exam Psychiatric: Orientation: alert and oriented x 3 Apperance: appropriately dressed and + disheveled Eye Contact: + poor eye contact Motor Behavior: no abnormal motor movements Speech: normal rate/rhythm/volume of speech Affect: + irritable affect Mood: + depressed mood Thought Process: + perseveration Thought Content: reality based without delusions Suicidal Thoughts: denies suicidal thoughts Homicidal Thoughts: denies homicidal thoughts Hallucinations: no auditory hallucinations and no visual hallucinations Cognition: language grossly intact Insight: + poor insight Judgement: + poor judgement Vital Signs (Past 24 Hours): Last Vital Signs Temp 36.6 C 07/19/21 08:00 Pulse 100 H 07/19/21 08:00 Resp 18 07/19/21 08:00 BP 109/71 07/19/21 08:00 Pulse Ox 96 07/19/21 08:00 Review of Systems All systems reviewed & are unremarkable except as noted in HPI & below Results & Data (PSY) Laboratory Results 07/19/21 07/19/21 07/19/21 Range/Units 06:32 06:32 06:32 WBC (4.8-10.8) K/uL RBC (4.2-5.4) M/uL Hgb (12.0-16.0) g/dL Hct (37-47) % MCV (80-100) fL MCH (25-34) pg MCHC (32-36) g/dL RDW Std Deviation (36.4-46.3) fL RDW Coeff of Kinga (11.5-14.5) % Plt Count (130-400) K/uL MPV (7.4-10.4) fL Immature Gran % (Auto) % Neut % (Auto) % Lymph % (Auto) % [place] % (Auto) % Eos % (Auto) % Baso % (Auto) % Neut # (Auto) (1.4-6.5) K/uL Lymph # (Auto) (1.2-3.4) K/uL [place] # (Auto) (0.11-0.59) K/uL Eos # (Auto) (0-0.5) K/uL Baso # (Auto) (0-0.2) K/uL Immature Gran # (Auto) (0.00-0.02) K/uL Polychromasia Anisocytosis APTT 48.8 H* (21.0-31.0) Seconds PTT Ratio 1.9 Sodium 133 L (136-145) mmol/L Potassium 3.8 (3.5-5.1) mmol/L Chloride 106 (98-107) mmol/L Carbon Dioxide 20 L (21-32) mmol/L Anion Gap 7 (3-11) BUN 7 (6-23) mg/dl Creatinine 0.81 (0.6-1.2) mg/dl Est Cr Clr Drug Dosing 94.2 ml/min Est GFR ( Amer) 112.2 ml/min Est GFR (Non-Af Amer) 96.8 ml/min BUN/Creatinine Ratio 8.6 L (10-20) Glucose 100 H (70-99(Fasting)) mg/dl Calcium 8.0 L (8.5-10.1) mg/dl Total Bilirubin 0.2 (0.2-1.0) mg/dl AST 18 (13-39) U/L ALT 18 (7-52) U/L Alkaline Phosphatase 69 (34-104) U/L Total Protein 6.8 (6.0-8.3) gm/dl Albumin 2.3 L (3.4-5.0) gm/dl Globulin 4.5 H (2.5-4.0) gm/dl Albumin/Globulin Ratio 0.5 L (0.9-2) Vitamin B12 701 (211-911) pg/ml Folate 8.25 (>5.38) ng/ml Urine Color Urine Appearance (Clear) Urine pH (4.5-7.5) Ur Specific [place] (1.000-1.030) Urine Protein (Negative) Urine Glucose (UA) (Negative) Urine Ketones (Negative) Urine Blood (Negative) Urine Nitrite (Negative) Urine Bilirubin (Negative) Urine Urobilinogen (Negative) Ur Leukocyte Esterase (Negative) Urine WBC (Auto) (0-5) /hpf Urine RBC (Auto) (0-4) /hpf U Hyaline Cast (Auto) (0-5) /lpf U Epithel Cells (Auto) (0-5) /lpf Urine Bacteria (Auto) (Negative) 07/19/21 07/18/21 07/18/21 Range/Units 06:32 22:42 17:45 WBC 13.86 H (4.8-10.8) K/uL RBC 2.65 L (4.2-5.4) M/uL Hgb 7.6 L (12.0-16.0) g/dL Hct 23.7 L (37-47) % MCV 89.4 (80-100) fL MCH 28.7 (25-34) pg MCHC 32.1 (32-36) g/dL RDW Std Deviation 47.3 H (36.4-46.3) fL RDW Coeff of King[place] 14.5 (11.5-14.5) % Plt Count 348 (130-400) K/uL MPV 9.2 (7.4-10.4) fL Immature Gran % (Auto) 1.4 % Neut % (Auto) 76.0 % Lymph % (Auto) 15.9 % [place] % (Auto) 5.3 % Eos % (Auto) 1.2 % Baso % (Auto) 0.2 % Neut # (Auto) 10.54 H (1.4-6.5) K/uL Lymph # (Auto) 2.20 (1.2-3.4) K/uL [place] # (Auto) 0.74 H (0.11-0.59) K/uL Eos # (Auto) 0.16 (0-0.5) K/uL Baso # (Auto) 0.03 (0-0.2) K/uL Immature Gran # (Auto) 0.19 H (0.00-0.02) K/uL Polychromasia 1+ Anisocytosis Present APTT 34.7 H (21.0-31.0) Seconds PTT Ratio 1.3 Sodium (136-145) mmol/L Potassium (3.5-5.1) mmol/L Chloride (98-107) mmol/L Carbon Dioxide (21-32) mmol/L Anion Gap (3-11) BUN (6-23) mg/dl Creatinine (0.6-1.2) mg/dl Est Cr Clr Drug Dosing ml/min Est GFR ( Amer) ml/min Est GFR (Non-Af Amer) ml/min BUN/Creatinine Ratio (10-20) Glucose (70-99(Fasting)) mg/dl Calcium (8.5-10.1) mg/dl Total Bilirubin (0.2-1.0) mg/dl AST (13-39) U/L ALT (7-52) U/L Alkaline Phosphatase (34-104) U/L Total Protein (6.0-8.3) gm/dl Albumin (3.4-5.0) gm/dl Globulin (2.5-4.0) gm/dl Albumin/Globulin Ratio (0.9-2) Vitamin B12 (211-911) pg/ml Folate (>5.38) ng/ml Urine Color Yellow Urine Appearance Clear (Clear) Urine pH 8.0 H (4.5-7.5) Ur Specific [place] 1.007 (1.000-1.030) Urine Protein Negative (Negative) Urine Glucose (UA) Negative (Negative) Urine Ketones Negative (Negative) Urine Blood 1+ H (Negative) Urine Nitrite Negative (Negative) Urine Bilirubin Negative (Negative) Urine Urobilinogen Negative (Negative) Ur Leukocyte Esterase Trace H (Negative) Urine WBC (Auto) 1-5 (0-5) /hpf Urine RBC (Auto) 5-10 H (0-4) /hpf U Hyaline Cast (Auto) 0 (0-5) /lpf U Epithel Cells (Auto) 10-20 H (0-5) /lpf Urine Bacteria (Auto) Negative (Negative) 07/18/21 Range/Units 13:51 WBC (4.8-10.8) K/uL RBC (4.2-5.4) M/uL Hgb (12.0-16.0) g/dL Hct (37-47) % MCV (80-100) fL MCH (25-34) pg MCHC (32-36) g/dL RDW Std Deviation (36.4-46.3) fL RDW Coeff of Kinga (11.5-14.5) % Plt Count (130-400) K/uL MPV (7.4-10.4) fL Immature Gran % (Auto) % Neut % (Auto) % Lymph % (Auto) % [place] % (Auto) % Eos % (Auto) % Baso % (Auto) % Neut # (Auto) (1.4-6.5) K/uL Lymph # (Auto) (1.2-3.4) K/uL [place] # (Auto) (0.11-0.59) K/uL Eos # (Auto) (0-0.5) K/uL Baso # (Auto) (0-0.2) K/uL Immature Gran # (Auto) (0.00-0.02) K/uL Polychromasia Anisocytosis APTT 37.0 H (21.0-31.0) Seconds PTT Ratio 1.4 Sodium (136-145) mmol/L Potassium (3.5-5.1) mmol/L Chloride (98-107) mmol/L Carbon Dioxide (21-32) mmol/L Anion Gap (3-11) BUN (6-23) mg/dl Creatinine (0.6-1.2) mg/dl Est Cr Clr Drug Dosing ml/min Est GFR ( Amer) ml/min Est GFR (Non-Af Amer) ml/min BUN/Creatinine Ratio (10-20) Glucose (70-99(Fasting)) mg/dl Calcium (8.5-10.1) mg/dl Total Bilirubin (0.2-1.0) mg/dl AST (13-39) U/L ALT (7-52) U/L Alkaline Phosphatase (34-104) U/L Total Protein (6.0-8.3) gm/dl Albumin (3.4-5.0) gm/dl Globulin (2.5-4.0) gm/dl Albumin/Globulin Ratio (0.9-2) Vitamin B12 (211-911) pg/ml Folate (>5.38) ng/ml Urine Color Urine Appearance (Clear) Urine pH (4.5-7.5) Ur Specific [place] (1.000-1.030) Urine Protein (Negative) Urine Glucose (UA) (Negative) Urine Ketones (Negative) Urine Blood (Negative) Urine Nitrite (Negative) Urine Bilirubin (Negative) Urine Urobilinogen (Negative) Ur Leukocyte Esterase (Negative) Urine WBC (Auto) (0-5) /hpf Urine RBC (Auto) (0-4) /hpf U Hyaline Cast (Auto) (0-5) /lpf U Epithel Cells (Auto) (0-5) /lpf Urine Bacteria (Auto) (Negative) Medications Administered Acetaminophen (Acetaminophen 325 Mg Tab) 650 mg PO Q4H PRN PRN Reason: Pain or Fever Stop: 08/16/21 23:41 Last Admin: 07/18/21 09:21 Dose: 650 mg Documented by: [id number] Admin: 07/18/21 00:27 Dose: 650 mg Documented by: [id number] Clonidine HCl (Clonidine Hcl 0.1 Mg Tab) 0.1 mg PO Q8 RIKKI Stop: 08/17/21 15:29 Last Admin: 07/19/21 06:37 Dose: 0.1 mg Documented by: [id number] Admin: 07/18/21 20:08 Dose: 0.1 mg Documented by: [id number] Admin: 07/18/21 15:44 Dose: 0.1 mg Documented by: [id number] Heparin Sodium/Dextrose (Heparin Sodium/Dextrose) 25,000 units in 500 mls @ 27 mls/hr IV .[id number] [facility]; Protocol Stop: 08/16/21 23:14 Last Admin: 07/19/21 09:19 Dose: Not Given Documented by: [id number] Titration: 07/19/21 01:00 Dose: 1,350 units/hr, 27 mls/hr Documented by: [id number] Cosigned by: [id number] Admin: 07/18/21 22:21 Dose: 1,250 units/hr, 25 mls/hr Documented by: [id number] Cosigned by: [id number] Titration: 07/18/21 22:21 Dose: 1,250 units/hr, 25 mls/hr Documented by: [id number] Cosigned by: [id number] Titration: 07/18/21 19:18 Dose: 1,250 units/hr, 25 mls/hr Documented by: [id number] Cosigned by: [id number] Titration: 07/18/21 16:45 Dose: 1,250 units/hr, 25 mls/hr Documented by: [id number] Cosigned by: [id number] Titration: 07/18/21 07:36 Dose: 1,150 units/hr, 23 mls/hr Documented by: [id number] Admin: 07/18/21 00:28 Dose: 1,050 units/hr, 21 mls/hr Documented by: [id number] Cosigned by: [id number] Lorazepam (Ativan) 1 mg in 2 mls @ 2 mls/min IV Q4H PRN PRN Reason: Anxiety/Agitation Stop: 08/16/21 23:41 Last Admin: 07/19/21 10:01 Dose: 2 mls/min Documented by: [id number] Admin: 07/19/21 06:04 Dose: 2 mls/min Documented by: [id number] Admin: 07/19/21 01:44 Dose: 2 mls/min Documented by: [id number] Admin: 07/18/21 20:07 Dose: 2 mls/min Documented by: [id number] Admin: 07/18/21 15:03 Dose: 2 mls/min Documented by: [id number] Admin: 07/18/21 01:44 Dose: 2 mls/min Documented by: [id number] Ceftaroline Fosamil 600 mg/ (Sodium Chloride) 270 mls @ 250 mls/hr IV Q8H RIKKI; Protocol Stop: 08/29/21 04:59 Last Infusion: 07/19/21 06:36 Dose: 0 mls/hr Documented by: [id number] Admin: 07/19/21 05:11 Dose: 250 mls/hr Documented by: [id number] Infusion: 07/18/21 22:21 Dose: 0 mls/hr Documented by: [id number] Admin: 07/18/21 21:05 Dose: 250 mls/hr Documented by: [id number] Infusion: 07/18/21 14:45 Dose: 0 mls/hr Documented by: [id number] Admin: 07/18/21 13:10 Dose: 250 mls/hr Documented by: [id number] Infusion: 07/18/21 07:02 Dose: 0 mls/hr Documented by: [id number] Admin: 07/18/21 05:46 Dose: 250 mls/hr Documented by: [id number] Heparin Sodium/Dextrose (Heparin Sodium/Dextrose) 25,000 units in 500 mls @ 25 mls/hr IV .Q20H [facility]; Protocol Stop: 08/16/21 23:14 Last Admin: 07/18/21 22:22 Dose: Not Given Documented by: [id number] Miscellaneous (Remove Nicoderm Patch) 1 ea N/A DAILY@[id number] [facility] Stop: 08/17/21 08:58 Last Admin: 07/19/21 08:35 Dose: 1 ea Documented by: [id number] Admin: 07/18/21 08:09 Dose: 1 ea Documented by: [id number] Nicotine (Nicotine 21 Mg/24 Hr Tdsy) 21 mg TD DAILY [facility] Stop: 08/16/21 23:41 Last Admin: 07/19/21 08:35 Dose: 21 mg Documented by: [id number] Admin: 07/18/21 08:09 Dose: 21 mg Documented by: [id number] Admin: 07/18/21 00:28 Dose: 21 mg Documented by: [id number] Coding Level of Care Code 11531 Inpt Consult Level 3 Diagnoses Adjustment disorder with disturbance of conduct F43.24 Polysubstance abuse F19.10 Noncompliance Z91.19
--- NOTE | 2021-07-19 12:43 | Hospitalist Progress Note ---
Date of Service July 19, 2021 Assessment & Plan Plan: Triscuspid Valve MRSA endocarditis Multifocal pneumonia -continue Ceftaroline (previously was on daptomycin) -TTE 07/13 compared to 07/03 showed worsening tricuspid valve regurgitation (from mild to moderate) and new mild pulmonary hypertension -TTE 07/18 unchanged compared to 07/13 -Blood cultures as recent as 07/16 has been positive -Appreciate Cardiology input, recommend transfer to Tertiary center for CT surgery re-evaluation and consideration of percutaneous TV vegetation debulking with her worsening tricuspid regurgitation and new pulmonary HTN with persistently positive blood cultures -07/18- Patient agreed for [place] [facility] [facility] was contacted and case discussed with Hospitalist provider--> patient accepted for transfer 07/18 but remains here physically. -Now patient requesting transfer to [facility] Polysubstance Drug Use -Active IV heroine use and methamphetamine use -continue clonidine 0.1mg TID for withdrawal, ativan PRN as ordered -patient with active arrest warrant Pulmonary Emboli possibly infectious -continue antibiotics as above -continue heparin drip Pancytopenia -likely due to bone marrow suppression from active drug use - improved Iron deficiency anemia -recommend starting iron supplements at discharge, check B12, folate DVT ppx -heparin drip Admission and Anticipated Discharge Date Admission Date: July 17, 2021 Subjective Patient agreed to transfer to [facility] yesterday but now wants to be transferred to [facility] Still feels jittery, anxious No events overnight Physical Exam Physical Exam: sitting in bed, reading a book, disheveled, appears older than stated age Respiratory: breathing comfortably on room air, no wheezing/rhonchi/rales Cardiovascular: sinus, +systolic murmur, no rubs Gastrointestinal (Abdomen): soft Musculoskeletal: no edema Psychiatric: affect normal, avoids eye contact, speech soft, non tangential Results & Data Results & Data ([facility]) Vital Signs (Past 12 Hours) Vital Signs Temp Pulse Pulse Resp BP Pulse Ox 07/19/21 12:00 36.6 C 100 H 18 145/69 H 96 07/19/21 08:00 36.6 C 91 H 100 H 18 109/71 96 07/19/21 02:46 36.6 C 94 H 18 121/82 97
--- NOTE | 2021-07-19 13:22 | Communication Note ---
Date of Service: July 19, 2021 I called [facility] per patient's request today and I spoke with Hospitalist and CT surgeon reservations sales agent. Patient was declined for transfer and they recommended she be transferred to [facility] since she is already known to the doctors there. Nursing and patient notified.
[2021-07-20] MEDS: ACETAMINOPHEN 325 MG TAB PO PRN (01:30)
[2021-07-20] MEDS: LORazepam 1 MG/2 ML VIAL IV PRN ×2 (02:13→07:32)
[2021-07-20] MEDS: cloNIDine HCL 0.1 MG TAB PO SCH (05:07)
[2021-07-20] MEDS: CEFTAROLINE FOSAMIL ACETATE 600 MG in SODIUM CHLORIDE 0.9% 250 ML IV SCH (05:07)
[2021-07-20 06:20] LABS: Basophils # (auto) 0.03 K/uL (0-0.2); Basophils % (auto) 0.3 %; Eosinophils # (auto) 0.19 K/uL (0-0.5); Eosinophils % (auto) 1.6 %; Hematocrit (blood only) 23.8 % (37-47); Hemoglobin 7.6 g/dL (12.0-16.0); Immature Granulocytes # (auto) 0.14 K/uL (0.00-0.02); Immature Granulocytes % (auto) 1.2 %; Lymphocytes % (auto) 20.2 %; Mean Corpuscular Hemoglobin 28.6 pg (25-34); Mean Corpuscular Hgb Conc 31.9 g/dL (32-36); Mean Corpuscular Volume 89.5 fL (80-100); Monocytes # (auto) 0.61 K/uL (0.11-0.59); Monocytes % (auto) 5.1 %; Neutrophils # (auto) 8.54 K/uL (1.4-6.5); Neutrophils % (auto) 71.6 %; Platelet Count 360 K/uL (130-400); RDW Coefficient of Variation 14.6 % (11.5-14.5); RDW Standard Deviation 47.3 fL (36.4-46.3); Red Blood Count 2.66 M/uL (4.2-5.4); White Blood Count 11.91 K/uL (4.8-10.8)
[2021-07-20 06:43] LABS: Anisocytosis Present; Polychromasia 1+
[2021-07-20 06:49] LABS: Albumin Globulin Ratio 0.5 (0.9-2); Albumin Level 2.3 gm/dl (3.4-5.0); BUN Creatinine Ratio 8.4 (10-20); Bilirubin,Total 0.2 mg/dl (0.2-1.0); Calcium 8.6 mg/dl (8.5-10.1); Creatinine Clr Calc Pharmacy 91.9 ml/min; Est GFR (African American) 108.9 ml/min; Globulin 4.7 gm/dl (2.5-4.0); Potassium 3.9 mmol/L (3.5-5.1)
[2021-07-20 07:22] LABS: Partial Thromboplastin Ratio 1.3; Partial Thromboplastin Time 34.2 Seconds (21.0-31.0)
== END 2021-07-20 08:05 | disposition short-term general hospital (02) | DRG 288 ==
LOC: ED 20:03 → EDINP 22:43 → 2S 23:41